=== PATIENT | male | born 1945 | race Caucasian/White ===

== ENCOUNTER 2016-07-14 15:45 | Inpatient (IN) | payer MEDICARE, BC ==
[~2016-07-14] VITALS: Ht 177.8 cm; Wt 95.0 kg
[~2016-07-14 15:45] MED LIST: APIX5TAB PO; ASPI81 PO; FURO1TAB93 PO; LEVA500T PO; METO100T PO; PARO10TA PO; POTA20IN3 PO; RAMI10CA PO; ROSU20 PO; SPIRCAP INH
[2016-07-14 15:49] VITALS: BP 139/84; PULSE 62; RESP 15; TEMP 98.3; O2SAT 94
[2016-07-14] MEDS ORDERED: SODIUM CHLORIDE 0.9% FLUSH 5 ML FLUSH IVF PRN (17:15)
[2016-07-14] MEDS ORDERED: ROSU20 PO (17:27)
[2016-07-14] MEDS ORDERED: ALBUAER3 INH (17:27)
[2016-07-14] MEDS ORDERED: GLIP5TAB8 PO (17:27)
[2016-07-14] MEDS ORDERED: TIOT1AER INH (17:27)
[2016-07-14] MEDS ORDERED: XYZA5TAB2 PO (17:32)
[2016-07-14] MEDS ORDERED: SACU1TAB4 PO (17:32)
[2016-07-14] MEDS ORDERED: METO100T PO (17:32)
[2016-07-14] MEDS ORDERED: PARO1TAB71 PO (17:34)
[2016-07-14] MEDS ORDERED: POTA1TAB4 PO (17:34)
[2016-07-14] MEDS ORDERED: FURO1TAB60 PO (17:35)
[2016-07-14] MEDS ORDERED: ASPI81TA81 PO (17:35)
[2016-07-14] MEDS ORDERED: APIX5TAB PO (17:35)
--- NOTE | 2016-07-14 17:50 | RADRPT ---
EXAM DATE/TIME: 07/14/2016 17:35 [facility] COMPARISON: CHEST SINGLE AP, December 08, 2014, 13:56. INDICATIONS : Chest pain. MEDICAL HISTORY : Chronic obstructive pulmonary disease. Hypertension SURGICAL HISTORY : None. ENCOUNTER: Initial ACUITY: 1 month PAIN SCORE: 3/10 LOCATION: Bilateral chest FINDINGS: PA and lateral views of the chest demonstrate the lungs to be symmetrically aerated without evidence of mass, infiltrate or effusion. A right cardiac fat pad is again noted. Atherosclerotic changes are present in the aorta. The cardiomediastinal contours are unremarkable. Osseous structures are intac t. CONCLUSION: No acute disease. Tom Rosas MD on July 14, 2016 at 17:48 Board Certified Radiologist. This report was verified electronically.
[2016-07-14 18:10] VITALS: BP_SYST 123; BP_SYST 138; BP_DIAS 63; BP_DIAS 80; RESP 18; O2SAT 96
[2016-07-14] MEDS ORDERED: RESP: ALBUTEROL 2.5 MG/IPRATROPIUM 0.5 MG NEB (SCH) NEB ONE (18:45)
[2016-07-14 18:53] LABS: AUTOMATED NEUTROPHIL # 2.5 TH/MM3 (1.8-7.7); BASOPHIL # 0.1 TH/MM3 (0-0.2); EOSINOPHIL # 0.5 TH/MM3 (0-0.4); EOSINOPHIL % 10.2 % (0.0-4.0); HEMATOCRIT 47.1 % (39.0-51.0); HEMO FLAGS DIFF FINAL; LYMPH % 29.1 % (9.0-44.0); LYMPHOCYTE # 1.5 TH/MM3 (1.0-4.8); MEAN CELL VOLUME 92.9 FL (80.0-100.0); MEAN CORPUSCULAR HEMOGLOBIN 31.7 PG (27.0-34.0); MEAN CORPUSCULAR HGB CONC 34.1 % (32.0-36.0); MONO % 13.7 % (0.0-8.0); PLATELET COUNT 245 TH/MM3 (150-450); RED BLOOD COUNT 5.07 MIL/MM3 (4.50-5.90); RED CELL DISTRIBUTION WIDTH 13.9 % (11.6-17.2); WHITE BLOOD COUNT 5.3 TH/MM3 (4.0-11.0)
[2016-07-14 19:05] LABS: APTT (PATIENT) 28.1 SEC (24.3-30.1); INTERNATIONAL NORMALIZED RATIO 1.1 RATIO; PROTHROMBIN TIME - PATIENT 12.7 SEC (9.8-11.6)
[2016-07-14 19:08] LABS: ANION GAP 7 MEQ/L (5-15); AST (GOT) 28 U/L (15-37); BICARBONATE 32.2 MEQ/L (21.0-32.0); BLOOD UREA NITROGEN 24 MG/DL (7-18); CHLORIDE 100 MEQ/L (98-107); GLOMERULAR FILTRATION RATE 56 ML/MIN (>89); MAGNESIUM 2.4 MG/DL (1.5-2.5); POTASSIUM 4.1 MEQ/L (3.5-5.1); SODIUM (NA) 139 MEQ/L (136-145)
[2016-07-14 19:14] LABS: ALKALINE PHOSPHATASE 102 U/L (45-117); ALT (GPT) 26 U/L (12-78); CREATINE KINASE 117 U/L (39-308); TOTAL BILIRUBIN ADULT 0.7 MG/DL (0.2-1.0)
[2016-07-14 19:26] LABS: CKMB 1.5 NG/ML (0.5-3.6)
--- NOTE | 2016-07-14 19:38 | PD ---
HPI Chief Complaint: Respiratory Symptoms Time Seen by Provider: 19:25 Travel History International Travel<30 days: No Contact w/Intl Traveler<30days: No Traveled to known affect area: No History of Present Illness HPI Patient 70-year-old male sent to the emergency department with Dr. Harrell's office for evaluation of shortness of breath. Patient states shortness of breath on and off for a month, he states he is needed some breathing treatments and went to Dr. Harrell's recently requesting additional breathing treatment but was told he didn't need any and he should come to the emergency department for evaluation of shortness of breath. According the patient there was some concern that there might be a possibility for cardiogenic shortness of breath. Patient denies history of CHF, does have a history of atrial fibrillation. PFSH Past Medical History Hx Anticoagulant Therapy: Yes Atrial Fibrillation: Yes Heart Rhythm Problems: Yes (AFIB) Cancer: No Cardiovascular Problems: Yes (AR X4) High Cholesterol: Yes Congestive Heart Failure: Yes Endocrine: No Genitourinary: No Heparin Induced Thrombocytopen: Yes Hypertension: Yes Immune Disorder: No Implanted Vascular Access Dvce: No Musculoskeletal: No Neurologic: No Psychiatric: No Reproductive: No Respiratory: No Myocardial Infarction: Yes (x 4 (recent 10/01/10)) PNEUMOCCOCAL Vaccine (Year): 2 Past Surgical History Cardiac Surgery: Yes (MULTIPLE STENTS 10/01/10) Other Surgery: No Social History Alcohol Use: Yes (1-2 drinks daily) Tobacco Use: No (quit 1992) Substance Use: No Allergies-Medications (Allergen,Severity, Reaction): Coded Allergies: Heparin (Verified Allergy, Severe, THROMBOCYTOPENIA, 07/14/16) Hctz (Verified Allergy, Mild, 07/14/16) RASH Reported Meds & Prescriptions Reported Meds & Active Scripts Active Reported Eliquis (Apixaban) 5 Mg Tab 5 Mg PO BID Aspir-81 (Aspirin) 81 Mg Tabdr 81 Mg PO HS Lasix (Furosemide) 40 Mg Tab 40 Mg PO DAILY Paroxetine (Paroxetine HCl) 10 Mg Tab 10 Mg PO DAILY K-Tab (Potassium Chloride) 20 Meq Tab 20 Meq PO DAILY Metoprolol Tartrate 100 Mg Tab 100 Mg PO BID Entresto (Sacubitril-Valsartan) 97-103 Mg Tab 1 Tab PO BID Xyzal (Levocetirizine) 5 Mg Tab 5 Mg PO HS Proair Hfa 8.5 GM Inh (Albuterol Sulfate) 90 Mcg/Act Aer 2 Puff INH QID PRN 108 mcg/actuation Stiolto Respimat Inh (Tiotropium-Olodaterol Inh) 2.5-2.5 Mcg/Act Aero 2 Puff INH DAILY Crestor (Rosuvastatin Calcium) 20 Mg Tab 20 Mg PO HS Glipizide 5 Mg Tab 5 Mg PO DAILY Take 30 minutes before a meal Review of Systems Except as stated in HPI: all other systems reviewed are Neg Physical Exam Narrative GENERAL: [Well-developed well-nourished no apparent distress SKIN: Warm and dry. HEAD: Atraumatic. Normocephalic. EYES: Pupils equal and round. No scleral icterus. No injection or drainage. ENT: No nasal bleeding or discharge. Mucous membranes pink and moist. NECK: Trachea midline. No JVD. CARDIOVASCULAR: Regular rate and rhythm. No murmur appreciated. RESPIRATORY: No accessory muscle use. Coarse breath sounds wheezes and rhonchi consistent with bronchitis, good air entry.. Breath sounds equal bilaterally. No increased work of breathing. GASTROINTESTINAL: Abdomen soft, non-tender, nondistended. Hepatic and splenic margins not palpable. MUSCULOSKELETAL: No obvious deformities. No clubbing. No cyanosis. No edema. NEUROLOGICAL: Awake and alert. No obvious cranial nerve deficits. Motor grossly within normal limits. Normal speech. PSYCHIATRIC: Appropriate mood and affect; insight and judgment normal. Data Data Last Documented VS Vital Signs Date Time Temp Pulse Resp B/P Pulse Ox O2 Delivery O2 Flow Rate FiO2 07/14/16 20:37 79 18 120/71 96 Room Air 07/14/16 15:49 98.3 Orders Electrocardiogram (07/14/16 17:06) B-Type Natriuretic Peptide (07/14/16 17:06) Ckmb (Isoenzyme) Profile (07/14/16 17:06) Complete Blood Count With Diff (07/14/16 17:06) Comprehensive Metabolic Panel (07/14/16 17:06) Magnesium (Mg) (07/14/16 17:06) Prothrombin Time / Inr (Pt) (07/14/16 17:06) Act Partial Throm Time (Ptt) (07/14/16 17:06) Troponin I (07/14/16 17:06) Ecg Monitoring (07/14/16 17:06) Bilateral Bp Monitoring (07/14/16 17:06) Iv Access Insert/Monitor (07/14/16 17:06) Oximetry (07/14/16 17:06) Oxygen Administration (07/14/16 17:06) Sodium Chloride 0.9% Flush (Ns Flush) (07/14/16 17:15) Chest, Pa & Lat (07/14/16 17:06) Albuterol-Ipratropium Neb (Duoneb Neb) (07/14/16 18:45) CKMB (07/14/16 18:20) CKMB% (07/14/16 18:20) Ct Brain W/O Iv Contrast(Rout) (07/14/16 20:21) Furosemide Inj (Lasix Inj) (07/14/16 20:45) Admit Order (Ed Use Only) (07/14/16 21:47) Labs Laboratory Tests Test 07/14/16 18:20 White Blood Count 5.3 TH/MM3 Red Blood Count 5.07 MIL/MM3 Hemoglobin 16.0 GM/DL Hematocrit 47.1 % Mean Corpuscular Volume 92.9 FL Mean Corpuscular Hemoglobin 31.7 PG Mean Corpuscular Hemoglobin 34.1 % Concent Red Cell Distribution Width 13.9 % Platelet Count 245 TH/MM3 Mean Platelet Volume 8.1 FL Neutrophils (%) (Auto) 46.0 % Lymphocytes (%) (Auto) 29.1 % Monocytes (%) (Auto) 13.7 % Eosinophils (%) (Auto) 10.2 % Basophils (%) (Auto) 1.0 % Neutrophils # (Auto) 2.5 TH/MM3 Lymphocytes # (Auto) 1.5 TH/MM3 Monocytes # (Auto) 0.7 TH/MM3 Eosinophils # (Auto) 0.5 TH/MM3 Basophils # (Auto) 0.1 TH/MM3 CBC Comment DIFF FINAL Differential Comment Prothrombin Time 12.7 SEC Prothromb Time International 1.1 RATIO Ratio Activated Partial 28.1 SEC Thromboplast Time Sodium Level 139 MEQ/L Potassium Level 4.1 MEQ/L Chloride Level 100 MEQ/L Carbon Dioxide Level 32.2 MEQ/L Anion Gap 7 MEQ/L Blood Urea Nitrogen 24 MG/DL Creatinine 1.27 MG/DL Estimat Glomerular Filtration 56 ML/MIN Rate Random Glucose 68 MG/DL Calcium Level 8.6 MG/DL Magnesium Level 2.4 MG/DL Total Bilirubin 0.7 MG/DL Aspartate Amino Transf 28 U/L (AST/SGOT) Alanine Aminotransferase 26 U/L (ALT/SGPT) Alkaline Phosphatase 102 U/L Total Creatine Kinase 117 U/L Creatine Kinase MB 1.5 NG/ML Troponin I 0.02 NG/ML B-Type Natriuretic Peptide 255 PG/ML Total Protein 8.0 GM/DL Albumin 3.7 GM/DL MDM Medical Decision Making Medical Screen Exam Complete: Yes Emergency Medical Condition: Yes Interpretation(s) EKG shows atrial ablation normal axis normal R-wave progression. No concerning ST-T changes. There are Q waves in II, III, and F aVF consistent with a prior inferior infarct. This is an abnormal EKG. Differential Diagnosis Bronchitis, pneumonia, CHF unlikely, shortness of breath. Narrative Course Patient was roomed emergency department, given duo neb. EKG is reassuring, chest x-ray reassuring. Lung sounds are highly consistent with bronchitis. Basic labs are still pending at this time. Patient was discussed with Dr. Graff at changes shift to follow-up labs and disposition properly. Zuhair Borrero MD Jul 14, 2016 19:38 Zuhair Borrero MD Jul 14, 2016 19:38
--- NOTE | 2016-07-14 20:23 | PD ---
Data Data Last Documented VS Vital Signs Date Time Temp Pulse Resp B/P Pulse Ox O2 Delivery O2 Flow Rate FiO2 07/14/16 20:37 79 18 120/71 96 Room Air 07/14/16 15:49 98.3 Orders Electrocardiogram (07/14/16 17:06) B-Type Natriuretic Peptide (07/14/16 17:06) Ckmb (Isoenzyme) Profile (07/14/16 17:06) Complete Blood Count With Diff (07/14/16 17:06) Comprehensive Metabolic Panel (07/14/16 17:06) Magnesium (Mg) (07/14/16 17:06) Prothrombin Time / Inr (Pt) (07/14/16 17:06) Act Partial Throm Time (Ptt) (07/14/16 17:06) Troponin I (07/14/16 17:06) Ecg Monitoring (07/14/16 17:06) Bilateral Bp Monitoring (07/14/16 17:06) Iv Access Insert/Monitor (07/14/16 17:06) Oximetry (07/14/16 17:06) Oxygen Administration (07/14/16 17:06) Sodium Chloride 0.9% Flush (Ns Flush) (07/14/16 17:15) Chest, Pa & Lat (07/14/16 17:06) Albuterol-Ipratropium Neb (Duoneb Neb) (07/14/16 18:45) CKMB (07/14/16 18:20) CKMB% (07/14/16 18:20) Ct Brain W/O Iv Contrast(Rout) (07/14/16 20:21) Furosemide Inj (Lasix Inj) (07/14/16 20:45) Admit Order (Ed Use Only) (07/14/16 21:47) Labs Laboratory Tests Test 07/14/16 18:20 White Blood Count 5.3 TH/MM3 Red Blood Count 5.07 MIL/MM3 Hemoglobin 16.0 GM/DL Hematocrit 47.1 % Mean Corpuscular Volume 92.9 FL Mean Corpuscular Hemoglobin 31.7 PG Mean Corpuscular Hemoglobin 34.1 % Concent Red Cell Distribution Width 13.9 % Platelet Count 245 TH/MM3 Mean Platelet Volume 8.1 FL Neutrophils (%) (Auto) 46.0 % Lymphocytes (%) (Auto) 29.1 % Monocytes (%) (Auto) 13.7 % Eosinophils (%) (Auto) 10.2 % Basophils (%) (Auto) 1.0 % Neutrophils # (Auto) 2.5 TH/MM3 Lymphocytes # (Auto) 1.5 TH/MM3 Monocytes # (Auto) 0.7 TH/MM3 Eosinophils # (Auto) 0.5 TH/MM3 Basophils # (Auto) 0.1 TH/MM3 CBC Comment DIFF FINAL Differential Comment Prothrombin Time 12.7 SEC Prothromb Time International 1.1 RATIO Ratio Activated Partial 28.1 SEC Thromboplast Time Sodium Level 139 MEQ/L Potassium Level 4.1 MEQ/L Chloride Level 100 MEQ/L Carbon Dioxide Level 32.2 MEQ/L Anion Gap 7 MEQ/L Blood Urea Nitrogen 24 MG/DL Creatinine 1.27 MG/DL Estimat Glomerular Filtration 56 ML/MIN Rate Random Glucose 68 MG/DL Calcium Level 8.6 MG/DL Magnesium Level 2.4 MG/DL Total Bilirubin 0.7 MG/DL Aspartate Amino Transf 28 U/L (AST/SGOT) Alanine Aminotransferase 26 U/L (ALT/SGPT) Alkaline Phosphatase 102 U/L Total Creatine Kinase 117 U/L Creatine Kinase MB 1.5 NG/ML Troponin I 0.02 NG/ML B-Type Natriuretic Peptide 255 PG/ML Total Protein 8.0 GM/DL Albumin 3.7 GM/DL [facility] Medical Record Reviewed: Yes Supervised Visit with LEONCIO: No Narrative Course CBC & BMP Diagram 07/14/16 18:20 BNP 255 LFTs normal Tn 0.02 EKG: afib, rate 70, Q waves II III and aVF INR 1.1 PTT 28.1 Chest x-ray reveals no dense consolidation or pulmonary edema Please refer to the outgoing provider's note. On my exam the history is less concerning for a CHF exacerbation although the patient does have difficulty breathing with COPD and CHF although he is not hypoxic or dyspneic in the ER my time of evaluation. His endorses concern for expressive aphasia. He does seem to a struggle with expressive aphasia. Duration of symptoms is about a day and a half or so. Dr. Harrell was also concerned about this. Head CT is negative. The patient will be admitted for further evaluation. Discussed with Dr. Osorio Diagnosis Primary Impression: Expressive aphasia Additional Impression: CHF (congestive heart failure) Qualified Code: I50.9 - Congestive heart failure, unspecified congestive heart failure chronicity, unspecified congestive heart failure type Admitting Information Admitting Physician Requests: Observation Ehsan Graff MD Jul 14, 2016 20:23
[2016-07-14 20:37] VITALS: BP 120/71; PULSE 79; RESP 18; O2SAT 96
[2016-07-14] MEDS ORDERED: FUROSEMIDE 20 MG/2 ML VIAL IV PUSH ONE (20:45)
--- NOTE | 2016-07-14 21:33 | RADRPT ---
EXAM DATE/TIME: 07/14/2016 20:44 [facility] COMPARISON: No previous studies available for comparison. INDICATIONS : Lethargic, dysphasia, and weakness; possible stroke. RADIATION DOSE: 50.00 CTDIvol (mGy) MEDICAL HISTORY : Myocardial infarction. Hypertension. cardiac stents, atrial fibrillation SURGICAL HISTORY : None. ENCOUNTER: Initial ACUITY: 1 day PAIN SCALE: 5/10 LOCATION: cranial TECHNIQUE: Multiple contiguous axial images were obtained of the head. Using automated exposure control and adj ustment of the mA and/or kV according to patient size, radiation dose was kept as low as reasonably a chievable to obtain optimal diagnostic quality images. FINDINGS: CEREBRUM: The ventricles are normal for age. No evidence of midline shift, mass lesion, hemorrhage or acute in farction. No extra-axial fluid collections are seen. POSTERIOR FOSSA: The cerebellum and brainstem are intact. The 4th ventricle is midline. The cerebellopontine angle i s unremarkable. EXTRACRANIAL: The visualized portion of the orbits is intact. SKULL: The calvaria is intact. No evidence of skull fracture. CONCLUSION: No acute disease. Shankar Schmitz MD on July 14, 2016 at 21:31 Board Certified Radiologist. This report was verified electronically.
[2016-07-14] MEDS ORDERED: DEXTROSE 50% IN WATER 50 ML VIAL(D50) IV PUSH PRN (23:00)
[2016-07-14] MEDS ORDERED: GLUCAGON 1 MG/ML VIAL OTHER PRN (23:00)
[2016-07-15] VITALS (10 sets, daily range): BP systolic 119–164; BP diastolic 64–96; PULSE 64–87; RESP 17–21; TEMP 97.5–97.8; O2SAT 93–98
--- NOTE | 2016-07-15 00:06 | RADRPT ---
EXAM DATE/TIME: 07/14/2016 23:00 [facility] COMPARISON: No previous studies available for comparison. INDICATIONS : Transient ishcemic attack. MEDICAL HISTORY : Myocardial infarction. Congestive heart failure. Hypercholesterolemia. A-Fib. SURGICAL HISTORY : Cardiac stents. ENCOUNTER: Initial ACUITY: 1 day PAIN SCORE: 0/10 LOCATION: Bilateral neck PEAK SYSTOLIC VELOCITIES (cm/sec): ICA/CCA RATIO: Right: 1.5 Left: 1.0 ICA: Right: 89 Left: 89 CCA: Right: 58 Left: 89 ECA: Right: 93 Left: 119 VERTEBRAL: Right: 0.0 absent Left: 37 antegrade Elevated flow velocities and ICA/CCA ratios have been found to correlate with increased degrees of vessel stenosis, calculated as percentage of diameter relative to a normal segment of distal ICA/CCA FINDINGS: Ultrasound of the carotid arteries was performed bilaterally using real-time Doppler and color Dopple r imaging. Examination of the right carotid artery demonstrates mild fibrous plaque within the bifurcation. No w aveform abnormalities are identified and no spectral broadening is seen. Examination of the left dupree tid artery demonstrates mild fibrous plaque within the bulb. No waveform abnormalities are identified and no spectral broadening is seen. There is antegrade flow in the left vertebral artery. The right vertebral artery is not identified CONCLUSION: No evidence of hemodynamically significant lesion. Alf Gutierrez MD on July 15, 2016 at 0:03 Board Certified Radiologist. This report was verified electronically.
[2016-07-15 06:32] LABS: POTASSIUM 3.6 MEQ/L (3.5-5.1)
[2016-07-15 06:35] LABS: HDL CHOLESTEROL 41.4 MG/DL (40.0-60.0)
[2016-07-15] MEDS: INSULIN ASPART SUPPLEMENTAL SCALE SQ SCH ×4 (07:00→21:00)
--- NOTE | 2016-07-15 08:48 | HHI.HP ---
[facility] Service [facility] Primary Care Physician Yusef Harrell DO Admission Diagnosis CHF, Expressive Aphasia Diagnoses: Chief Complaint: SOB, trouble with speech. (Annel Candelario) Travel History International Travel<30 Days: No Contact w/Intl Traveler <30 Da: No Traveled to Known Affected Are: No (Annel Candelario) History of Present Illness This is a 70-year-old male with significant past medical history of coronary artery disease, prior myocardial infarction, previous stents, chronic A. fib, CHF, HIT, hypertension, DM II. Patient presented to the emergency room for evaluation of shortness of breath. He was sent from his primary care office. Patient is a poor historian, is providing the information. Patient had gone in for his regular checkup, he was noted short of breath and was told to bring him here for further evaluation. He was given DuoNeb treatments at the office. According to the , she has noted that patient has been dizzy, kind of stumbling around. Patient states that he has some shortness of breath that is more with activity, denies any chest pain, no palpitations, no orthopnea , no leg swelling. Patient is compliant with medications, he is on diuretics. During evaluation in the emergency room, also endorses that patient has some trouble with expressive aphasia. This has been an ongoing problem but his been more pronounced in the last couple days. She think that he has the beginning of Alzheimer's disease, has noted increased problems with his memory. He has trouble with word finding. Patient still drives and is relatively active and takes care of his house. During examination, he know he is in the hospital, is oriented to city, knows 's name. When asked what year and month he's having trouble recalling. He has no focal deficits. He's having some difficulty following more complex commands. Denies any paresthesias. Laboratory workup was completed in the emergency room. CBC was essentially unremarkable. BNP was 255. BMP was unremarkable. Head CT did not reveal any significant findings. Brain MRI also with no acute findings. Chest x-ray did not show any acute findings. Carotid Ultrasound doesn't show any significant stenosis. Patient was given Lasix 20 mg IV 1. Denies any shortness of breath at this time, no chest pain. Patient is admitted for further evaluation and treatment. (Annel Candelario) Review of Systems ROS Limitations: Poor Historian Neurologic: COMPLAINS OF: Speech Problems (Annel Candelario) Past Family Social History Past Medical History Recent memory problems Atrial fibrillation Myocardial infarction x 4 Coronary artery disease and stents 5 Last cardiac catheter was in 2010 Previous tobacco abuse Hypertension Hyperlipidemia CHF HIT Echo 2010, EF 35-40% DM II Past Surgical History Cardiac catheterization Multiple stents in the past Reported Medications Reported Meds & Active Scripts Active Reported Eliquis (Apixaban) 5 Mg Tab 5 Mg PO BID Aspir-81 (Aspirin) 81 Mg Tabdr 81 Mg PO HS Lasix (Furosemide) 40 Mg Tab 40 Mg PO DAILY Paroxetine (Paroxetine HCl) 10 Mg Tab 10 Mg PO DAILY K-Tab (Potassium Chloride) 20 Meq Tab 20 Meq PO DAILY Metoprolol Tartrate 100 Mg Tab 100 Mg PO BID Entresto (Sacubitril-Valsartan) 97-103 Mg Tab 1 Tab PO BID Xyzal (Levocetirizine) 5 Mg Tab 5 Mg PO HS Proair Hfa 8.5 GM Inh (Albuterol Sulfate) 90 Mcg/Act Aer 2 Puff INH QID PRN 108 mcg/actuation Stiolto Respimat Inh (Tiotropium-Olodaterol Inh) 2.5-2.5 Mcg/Act Aero 2 Puff INH DAILY Crestor (Rosuvastatin Calcium) 20 Mg Tab 20 Mg PO HS Glipizide 5 Mg Tab 5 Mg PO DAILY Take 30 minutes before a meal (Annel Candelario) Allergies: Coded Allergies: Heparin (Verified Allergy, Severe, THROMBOCYTOPENIA, 07/14/16) Hctz (Verified Allergy, Mild, 07/14/16) RASH Active Ordered Medications Inpatient Medications Albuterol/ Ipratropium (Duoneb Neb) 3 ampule ONCE ONCE NEB Last administered on 07/14/16t 18:45; Start 07/14/16 at 18:45; Stop 07/14/16 at 18:46; Status DC Apixaban (Eliquis) 5 mg BID PO ; Start 07/15/16 at 09:00 Aspirin (Ecotrin Ec) 81 mg HS PO ; Start 07/15/16 at 21:00 Atorvastatin Calcium (Lipitor) 40 mg HS PO CM; Start 07/15/16 at 21:00 Dextrose (D50w (Vial) Inj) 25 ml UNSCH PRN IV PUSH HYPOGLYCEMIA-SEE COMMENTS; Start 07/14/16 at 23:00 Furosemide (Lasix Inj) 20 mg BID@,18 IV PUSH ; Start 07/15/16 at 09:00 Glipizide (Glucotrol) 5 mg DAILY@08 PO ; Start 07/15/16 at 08:00 Glucagon (Glucagon Inj) 1 mg UNSCH PRN OTHER HYPOGLYCEMIA-SEE COMMENTS; Start 07/14/16 at 23:00 Insulin Aspart (NovoLOG SUPPLEMENTAL SCALE) 1 ACHS SLIDING SCALE SQ ; Start at 07:00 IV Flush (NS Flush) 2 ml UNSCH PRN IVF FLUSH AFTER USING IV ACCESS Last administered on 07/14/16t 20:54; Start 07/14/16 at 17:15 Metoprolol Tartrate (Lopressor) 100 mg BID PO ; Start 07/15/16 at 09:00 Paroxetine HCl (Paxil) 10 mg DAILY PO ; Start 07/15/16 at 09:00 Patient Own Medication PT OWN MED: STIO... DAILY PO ; Start 07/15/16 at 09:00 Sacubitril/ Valsartan (Entresto 97-103 Mg) 1 tab BID PO ; Start 07/15/16 at 09: 00 Family History Reviewed, noncontributory Social History Patient is , lives at home with . Drinks 1-2 drinks daily. Quit smoking in 1992. No substance abuse. (Annel Candelario) Physical Exam Vital Signs Vital Signs Date Time Temp Pulse Resp B/P Pulse Ox O2 Delivery O2 Flow Rate FiO2 07/15/16 07:54 97.6 75 18 159/96 93 07/15/16 06:00 76 07/15/16 05:23 97.8 87 18 151/87 97 07/15/16 02:20 72 18 119/64 95 Room Air 07/14/16 20:37 79 18 120/71 96 Room Air 07/14/16 18:10 95 Room Air 07/14/16 18:10 123/63 138/80 07/14/16 18:10 18 96 Room Air 07/14/16 15:49 98.3 62 15 139/84 94 Physical Exam GENERAL: This is a well-nourished, well-developed patient, in no apparent distress. SKIN: No rashes, ecchymoses or lesions. Cool and dry. HEAD: Atraumatic. Normocephalic. No temporal or scalp tenderness. EYES: Pupils equal round and reactive. Extraocular motions intact. No scleral icterus. No injection or drainage. ENT: Nose without bleeding, purulent drainage or septal hematoma. Throat without erythema, tonsillar hypertrophy or exudate. Uvula midline. Airway patent. NECK: Trachea midline. No JVD or lymphadenopathy. Supple, nontender, no meningeal signs. CARDIOVASCULAR: S1 and S2, irregularly irregular. No murmurs rubs or gallops. RESPIRATORY: Clear to auscultation. Breath sounds equal bilaterally. No wheezes , rales, or rhonchi. GASTROINTESTINAL: Abdomen soft, non-tender, nondistended. No hepato-splenomegaly , or palpable masses. No guarding. MUSCULOSKELETAL: Extremities without clubbing, cyanosis, or edema. No joint tenderness, effusion, or edema noted. No calf tenderness. Negative Homans sign bilaterally. NEUROLOGICAL: Awake, alert oriented 2. Has difficulty with word finding. No focal deficit. Can follow simple commands. Laboratory Laboratory Tests Test 07/14/16 07/15/16 18:20 05:22 White Blood Count 5.3 Red Blood Count 5.07 Hemoglobin 16.0 Hematocrit 47.1 Mean Corpuscular Volume 92.9 Mean Corpuscular Hemoglobin 31.7 Mean Corpuscular Hemoglobin 34.1 Concent Red Cell Distribution Width 13.9 Platelet Count 245 Mean Platelet Volume 8.1 Neutrophils (%) (Auto) 46.0 Lymphocytes (%) (Auto) 29.1 Monocytes (%) (Auto) 13.7 Eosinophils (%) (Auto) 10.2 Basophils (%) (Auto) 1.0 Neutrophils # (Auto) 2.5 Lymphocytes # (Auto) 1.5 Monocytes # (Auto) 0.7 Eosinophils # (Auto) 0.5 Basophils # (Auto) 0.1 CBC Comment DIFF FINAL Differential Comment Prothrombin Time 12.7 Prothromb Time International 1.1 Ratio Activated Partial 28.1 Thromboplast Time Sodium Level 139 142 Potassium Level 4.1 3.6 Chloride Level 100 102 Carbon Dioxide Level 32.2 31.0 Anion Gap 7 9 Blood Urea Nitrogen 24 24 Creatinine 1.27 1.16 Estimat Glomerular Filtration 56 62 Rate Random Glucose 68 107 Calcium Level 8.6 8.2 Magnesium Level 2.4 Total Bilirubin 0.7 Aspartate Amino Transf 28 (AST/SGOT) Alanine Aminotransferase 26 (ALT/SGPT) Alkaline Phosphatase 102 Total Creatine Kinase 117 Creatine Kinase MB 1.5 Troponin I 0.02 B-Type Natriuretic Peptide 255 Total Protein 8.0 Albumin 3.7 Triglycerides Level 165 Cholesterol Level 126 LDL Cholesterol 52 HDL Cholesterol 41.4 Cholesterol/HDL Ratio 3.04 (Annel Candelario) Result Diagram: 07/14/16 1820 07/15/16 0522 Imaging Last Impressions Head CT 07/14/162020 Signed Impressions: Service Date/Time: Thursday, July 14, 2016 20:44 - CONCLUSION: No acute disease. Shankar Schmitz MD Chest X-Ray 07/14/16 1706 Signed Impressions: Service Date/Time: Thursday, July 14, 2016 17:35 - CONCLUSION: No acute disease. Tom Rosas MD Carotid Artery Ultrasound 07/14/16 0000 Signed Impressions: Service Date/Time: Thursday, July 14, 2016 23:00 - CONCLUSION: No evidence of hemodynamically significant lesion. Alf Gutierrez MD (Annel Candelario) Assessment and Plan Problem List: (1) Expressive aphasia (2) CHF (congestive heart failure) (3) Atrial fibrillation (4) CAD (coronary artery disease) (5) Hypertension (6) Memory deficit (7) Hx of myocardial infarction (8) Diabetes 1.5, managed as type 2 Assessment and Plan Admit to Dr. Rice 70-year-old male with history of CAD, CHF, A. fib. Presented to emergency room from doctor's office for complaint of shortness of breath, also ongoing problems with expressive aphasia. CHF, likely systolic appears well compensated Lasix 20 mg IV twice a day Continue to monitor intake and output Continue Entresto, BB -2-D echo has been ordered Consult cardiology for evaluation Expressive aphasia, CT and brain MRI did not show any acute findings, has ongoing memory problems. Possible CVA, versus TIA, possible early dementia. -Continue neuro checks Consult neurology for evaluation 2-D echo, carotid ultrasound have been ordered Imaging studies have been reviewed We'll check TSH, B12 and RPR -Continue with aspirin -PT/OT/ST ordered. -Lipid profile A. fib, stable Continuous cardiac telemetry Continue beta blockers Continue with Eliquis 5 mg by mouth twice a day -Continue statin CAD, hx CT -continue with home meds DM II -Accu-Cheks before meals and at bedtime with insulin therapy as needed Home medications reviewed, initiated as indicated Continue with Eliquis for DVT prophylaxis Plan of care has been discussed with the patient, attending and registered nurse. Further management of the patient will be dependent on the hospital course This patient was seen by myself and Dr. 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 about plan of care (Charlie Rice MD) Problem Qualifiers (1) CHF (congestive heart failure): Qualified Code: I50.9 - Congestive heart failure, unspecified congestive heart failure chronicity, unspecified congestive heart failure type (2) Atrial fibrillation: Qualified Code: I48.91 - Atrial fibrillation, unspecified type (3) CAD (coronary artery disease): Qualified Code: I25.10 - Coronary artery disease involving [place] coronary artery of [place] heart without angina pectoris (4) Hypertension: Qualified Code: I10 - Essential hypertension Annel Candelario Jul 15, 2016 08:48 Charlie Rice MD Jul 15, 2016 21:36
[2016-07-15] MEDS ORDERED: FUROSEMIDE 20 MG/2 ML VIAL IV PUSH SCH (09:00)
--- NOTE | 2016-07-15 09:25 | RADRPT ---
EXAM DATE/TIME: 07/15/2016 08:53 [facility] COMPARISON: CT BRAIN W/O CONTRAST, July 14, 2016, 20:44. INDICATIONS : Lethargy, weakness, slurred speech. MEDICAL HISTORY : Diabetes mellitus type 2. SURGICAL HISTORY : Inguinal hernia repair. ENCOUNTER: Initial ACUITY: 1 day PAIN SCORE: 0/10 LOCATION: cranial TECHNIQUE: Multiplanar, multisequence MRI of the brain was performed without contrast. FINDINGS: CEREBRUM: The ventricles are normal for age. No evidence of midline shift, mass lesion, hemorrhage or acute in farction. No extraaxial fluid collections are seen. The pituitary gland and suprasellar cistern are normal in configuration. WHITE MATTER: A few scattered subcentimeter foci of flair signal abnormality are seen in the periventricular white matter of both cerebral hemispheres. POSTERIOR FOSSA: The cerebellum and brainstem are intact. The 4th ventricle is midline. The cerebellopontine angle is unremarkable. The cerebellar tonsils are normal in position. DIFFUSION IMAGING: No focal areas of restricted diffusion are seen. No evidence of acute infarction. EXTRACRANIAL: The visualized portions of the orbits and paranasal sinuses are unremarkable. CONCLUSION: 1. No acute infarct or other acute intracranial abnormality. 2. Minimal chronic white matter changes. Shankar Enrique MD on July 15, 2016 at 9:23 Board Certified Radiologist. This report was verified electronically.
[2016-07-15] MEDS: SACUBITRIL/VALSARTAN 97 MG-103 MG TAB PO SCH ×2 (11:05→23:26)
[2016-07-15] MEDS: FUROSEMIDE 20 MG/2 ML VIAL IV PUSH SCH ×2 (11:06→18:19)
[2016-07-15] MEDS: STIOLTO RESPIMAT PO SCH (11:06)
[2016-07-15] MEDS: glipiZIDE 5 MG TAB PO SCH (11:06)
[2016-07-15] MEDS: METOPROLOL TARTRATE 100 MG TAB PO SCH ×2 (11:07→22:21)
[2016-07-15] MEDS: APIXABAN 5 MG TABLET PO SCH ×2 (11:07→22:21)
[2016-07-15] MEDS: PARoxetine HCL 20 MG TAB PO SCH (11:07)
--- NOTE | 2016-07-15 15:48 | EKG ---
Date Performed: 07/14/2016 Time Performed: 18:14:08 PTAGE: 70 years EKG: ATRIAL FIBRILLATION ANTERIOR MYOCARDIAL INFARCTION INFERIOR MYOCARDIAL INFARCTION When comp ared to previous tracing, no significant change. ABNORMAL ECG PREVIOUS TRACING : 12/08/2014 14.03 DOCTOR: Alfred Torres Interpretating Date/Time 07/15/2016 15:46:46
--- NOTE | 2016-07-15 16:53 | MB ---
cc: RIDDHI ESPINOZA M.D. DATE OF CONSULTATION: 07/15/2016 REASON FOR CONSULTATION Shortness of breath, possible CVA also. HISTORY OF PRESENT ILLNESS Mr. Sanchez is a 70-year-old gentleman with a history of high blood pressure, congestive heart failure, hyperlipidemia, apparent atrial fibrillation, on anticoagulation admitted through the emergency room due to shortness of breath. The gentleman also a bit disoriented. Heart failure and a CVA suspected. I was consulted for evaluation and management. The chart was reviewed. The patient was evaluated. ALLERGIES HEPARIN AND HYDROCHLOROTHIAZIDE. SOCIAL HISTORY The patient quit smoking over 20 years ago. Drinks occasionally. FAMILY HISTORY Noncontributory to his current medical condition. MEDICATIONS AT HOME 1. Eliquis. 2. Aspirin. 3. Lasix. 4. Paroxetine. 5. Potassium. 6. Metoprolol. 7. Entresto. 8. ProAir. 9. Crestor. 10. Glipizide. REVIEW OF SYSTEMS The patient refer currently no chest pain, some shortness of breath but no vomiting, no fever. PHYSICAL EXAMINATION GENERAL: Alert, fully oriented. VITAL SIGNS: His blood pressure 140/67, pulse 68 irregular. LUNGS: Ventilated. CARDIOVASCULAR: S1, S2, irregular, no gallop. ABDOMEN: Obese. EXTREMITIES: No edema. Electrocardiogram shows atrial fibrillation, poor R-wave progression, diffuse ST changes and electrical interference. LABORATORY DATA Hemoglobin is 16, white blood cell 5.3, potassium is 3.6, creatinine is 1.16, TSH 1.1, troponin 0.52, BNP 255. ASSESSMENT AND RECOMMENDATIONS Mr. Sanchez currently stable. He has no chest pain, no shortness of breath. Blood pressure is adequate. He is on optimal medical treatment. I do not have a report of his ejection fraction. Echo not available. MRI was performed, report indicates no acute intracranial hemorrhage, minimal chronic change. At this point, my recommendation is continue with current management. The gentleman will need a 2D echo to evaluate wall motion and valvular function. He is very comfortable, there is no sign of fluid retention, BNP is only 255. I will closely monitor him during hospitalization. MD MADELEINE Schroeder/ASHLEIGH /4:07 PM /4:41 PM
[2016-07-15] MEDS: ASPIRIN EC 81 MG TABEC PO SCH (22:21)
[2016-07-15] MEDS: ATORVASTATIN 40 MG TAB PO SCH (22:21)
--- NOTE | 2016-07-15 23:05 | MB ---
cc: MITCH MEDRANO DATE OF CONSULTATION 07/15/16 REASON FOR CONSULTATION Difficulty with word finding HISTORY OF PRESENT ILLNESS Mr. Sanchez is a 70-year-old man who came to the hospital because of shortness of breath. His ws relating that he has been having difficulty with his word-finding ability with expressing words. He also relates difficulty with his memory for about a year now. No focal deficits. No headaches. NEUROLOGIC EXAMINATION Patient is alert. He is oriented x3, recalls 1/3 objects in 3 minutes. Remote memory is intact. His speech is fluent. He can name objects normally. Cranial nerves are intact. Motor exam is normal. There is no drift. IMAGING STUDIES MRI of the brain is normal. No acute change. CT of the brain is likewise normal. IMPRESSION The patient may have the early onset of a mild dementia. He had some recent memory loss on his mini mental status exam. I would recommend further evaluation as an outpatient with formal neuropsychological testing. MD JULIO Machado/ /10:45 PM /11:04 PM
[2016-07-16 00:05] VITALS: PULSE 66
[2016-07-16 04:18] VITALS: BP 142/78; PULSE 72; RESP 18; TEMP 98.8; O2SAT 98
[2016-07-16] MEDS: INSULIN ASPART SUPPLEMENTAL SCALE SQ SCH ×4 (06:31→20:53)
[2016-07-16] MEDS: glipiZIDE 5 MG TAB PO SCH (08:00)
--- NOTE | 2016-07-16 08:18 | HHI.PR ---
Subjective Remarks Rested well Conversational, smiling No chest pain Shortness of breath Appetite good (Galina Stewart) Objective Objective Results - Vital Signs Date Time Temp Pulse Resp B/P Pulse Ox O2 Delivery O2 Flow Rate FiO2 07/16/16 04:18 98.8 72 18 142/78 98 07/16/16 00:05 66 07/15/16 23:49 97.8 78 18 143/91 94 07/15/16 20:14 97.8 64 21 138/69 98 07/15/16 17:25 69 07/15/16 15:39 97.7 68 17 140/67 95 07/15/16 12:39 69 20 142/89 95 07/15/16 11:26 97.5 68 18 164/92 94 I/O 07/15/16 07/15/16 07/15/16 07/16/16 07/16/16 07/16/16 07:00 15:00 23:00 07:00 15:00 23:00 Intake Total 480 ml Output Total 400 ml Balance -400 ml 480 ml Intake Oral 480 ml Output Urine Total 400 ml # Voids 1 0 # Bowel Movements 0 (Glaina Stewart) Result Diagram: 07/14/16 1820 07/15/16 0522 ROS General: Weakness (generalized), Other (10 point ROS done, positives include generalized weakness, mild pleasant confusion, cough Other systems unremarkable ) Pulmonary: SOB (occasional) Neuro/MS: Confusion (mild, situational in place, time), Other (Galina Stewart) Physical Exam Physical Exam PHYSICAL EXAMINATION GENERAL: This is a well-developed, well-nourished male who appears to be in no acute distress. He is alert and awake, smiling conversational HEAD: Normocephalic without any lesion or mass noted. Facial features appear symmetric. OROPHARYNGEAL: Oropharynx without erythema or edema. NECK: Supple. No nuchal rigidity or lymphadenopathy. Trachea midline without deviation. CARDIAC: Regular rhythm, regular rate, S1 and S2 are heard. Murmur none; no gallops or rubs. LUNGS: Clear to auscultation bilaterally, low volumes. No wheeze, rhonchi or rale. No use of accessory muscles on inspiration or expiration. ABDOMEN: Soft, nontender, no organomegaly or masses. Bowel sounds are heard in all four quadrants. No rebound. No guarding. EXTREMITIES: No edema. Pulses equal bilateral. no cyanosis. NEUROLOGICAL: Patient mood and affect calm, continuous smiling, some expressive dysphasia SKIN:Warm and moist Objective Remarks You look different today. I think I know you. (Galina Stewart) A/P Assessment and Plan (1) Expressive aphasia (2) CHF (congestive heart failure) (3) Atrial fibrillation (4) CAD (coronary artery disease) (5) Hypertension (6) Memory deficit (7) Hx of myocardial infarction (8) Diabetes 1.5, managed as type 2 CHF, stable Lasix 20 mg IV twice a day monitor intake and output Consult cardiology for his expert opinion Recommends 2-D echo Chest x-ray shows no acute disease Expressive aphasia, CT and brain MRI did not show any acute findings, has ongoing memory problems. Possible CVA, versus TIA, possible early dementia. -Continue neuro checks, note any acute changes Consult neurology for evaluation, probable dementia Not oriented to situation, person, thinks he's in the basement in the laundry. Med management A. fib, stable cardiac telemetry Medical management Stable heart rate CAD, hx DC -continue with home meds 2-D echo DM II -Accu-Cheks before meals and at bedtime with insulin therapy as needed Home medications reviewed, initiated as indicated Eliquis for DVT prophylaxis This patient was seen by myself and Dr. Rice. (Galina Stewart) Assessment and Plan Pt seen and examined as above face to face time spent with pt labs and rad data reviewed dw rn bryon arshad about plan of care guru senior analytic consultant help explained to pt 2 d echo report reviewed. EF of 15 %. may need lifevest or AICD (Charlie Rice MD) Galina Stewart Jul 16, 2016 08:18 Charlie Rice MD Jul 16, 2016 08:44
[2016-07-16] MEDS: SACUBITRIL/VALSARTAN 97 MG-103 MG TAB PO SCH ×2 (09:00→20:52)
[2016-07-16] MEDS: STIOLTO RESPIMAT PO SCH (09:00)
[2016-07-16] MEDS: METOPROLOL TARTRATE 100 MG TAB PO SCH ×3 (09:00→20:54)
[2016-07-16] MEDS: PARoxetine HCL 20 MG TAB PO SCH (09:00)
[2016-07-16] MEDS: APIXABAN 5 MG TABLET PO SCH ×2 (09:00→20:52)
[2016-07-16] MEDS: FUROSEMIDE 20 MG/2 ML VIAL IV PUSH SCH (09:00)
[2016-07-16 10:36] VITALS: BP 136/84; PULSE 70; RESP 18; TEMP 96.3; O2SAT 95
[2016-07-16 11:43] VITALS: PULSE 69
--- NOTE | 2016-07-16 12:54 | EC ---
Study Study Date:07/15/2016 STUDY CONCLUSIONS SUMMARY - Left ventricle: The cavity size was normal. Wall thickness was normal. Systolic function was severely reduced. The estimated ejection fraction was in the range of 20% to 30%. - Aortic valve: Trace regurgitation. - Tricuspid valve: Mild regurgitation. - Pulmonary arteries: PA peak pressure: 46mm Hg (S). If LV function is below 40, please consider prescribing an ACEI or ARB or document rationale for non-use. PROCEDURE DATA STUDY STATUS: Elective. Procedure: Transthoracic echocardiography. Image quality was good. Scanning was performed from the parasternal, apical, and subcostal acoustic windows. Study completion: The patient tolerated the procedure well. Transthoracic echocardiography. M-mode, complete 2D, complete spectral Doppler, and color Doppler. Patient status: Inpatient. CARDIAC ANATOMY LEFT VENTRICLE: The cavity size was normal. Wall thickness was normal. Systolic function was severely reduced. The estimated ejection fraction was in the range of 20% to 30%. AORTIC VALVE: Trileaflet; normal thickness leaflets. Doppler: Transvalvular velocity was within the normal range. There was no stenosis. Trace regurgitation. AORTA: Aortic root: The aortic root was normal in size. MITRAL VALVE: Structurally normal valve. Doppler: Transvalvular velocity was within the normal range. There was no evidence for stenosis. Trace to mild regurgitation. LEFT ATRIUM: The atrium was at the upper limits of normal in size. RIGHT VENTRICLE: The cavity size was normal. Wall thickness was normal. Systolic pressure was within the normal range. PULMONIC VALVE: Doppler: Transvalvular velocity was within the normal range. There was no evidence for stenosis. No regurgitation. TRICUSPID VALVE: Structurally normal valve. Doppler: Transvalvular velocity was within the normal range. Mild regurgitation. PULMONARY ARTERY: The main pulmonary artery was normal-sized. Systolic pressure was within the normal range. RIGHT ATRIUM: The atrium was normal in size. PERICARDIUM: There was no pericardial effusion. SYSTEMIC VEINS: Inferior vena cava: The vessel was normal in size. BASIC MEASUREMENTS ADULT Normal Left ventricle LV internal dimension, ED, chordal level, 46.8 mm 43-52 PLAX LV internal dimension, ES, chordal level, *42.9 mm 23-38 PLAX Fractional shortening, chordal level, PLAX *8 % >29 LV posterior wall thickness, ED 8.1 mm IVS/LVPW ratio, ED 1.25 <1.3 Ventricular septum Septal thickness, ED 10.1 mm Aortic valve Leaflet separation 20 mm 15-26 Left atrium Anterior-posterior dimension 42 mm Right ventricle RV internal dimension, ED, PLAX 22.9 mm 19-38 BASIC MEASUREMENTS ADULT Normal Aortic valve Leaflet separation 20 mm 15-26 Aorta Root diameter, ED 31 mm 20-37 DOPPLER MEASUREMENTS ADULT Normal Main pulmonary artery Pressure, S *46 mm Hg =30 Mitral valve Peak E-wave velocity 68.6 cm/s Peak A-wave velocity 34.6 cm/s Peak E/A ratio 2 Tricuspid valve Regurgitant peak velocity 289 cm/s Peak RV-RA gradient, S 33 mm Hg Maximal regurgitant velocity 289 cm/s Systemic veins Estimated CVP 5 mm Hg Right ventricle RV pressure, S *46 mm Hg <30 LEGEND: Mean values are shown as u=mean value. Asterisk (*) peterson values outside specified normal range. Hayley Serrano [id number]
[2016-07-16 15:41] VITALS: BP 126/62; PULSE 74; RESP 18; O2SAT 94
[2016-07-16] MEDS: SPIRONOLACTONE 25 MG TAB PO SCH (15:45)
--- NOTE | 2016-07-16 15:50 | HHI.PR ---
Subjective Remarks Feeling ok Objective Vital Signs Date Time Temp Pulse Resp B/P Pulse Ox O2 Delivery O2 Flow Rate FiO2 07/16/16 15:41 74 18 126/62 94 07/16/16 11:43 69 07/16/16 10:36 96.3 70 18 136/84 95 07/16/16 04:18 98.8 72 18 142/78 98 07/16/16 00:05 66 07/15/16 23:49 97.8 78 18 143/91 94 07/15/16 20:14 97.8 64 21 138/69 98 07/15/16 17:25 69 I/O 07/15/16 07/15/16 07/15/16 07/16/16 07/16/16 07/16/16 07:00 15:00 23:00 07:00 15:00 23:00 Intake Total 480 ml Output Total 400 ml Balance -400 ml 480 ml Intake Oral 480 ml Output Urine Total 400 ml # Voids 1 0 # Bowel Movements 0 Result Diagram: 07/14/16 1820 07/15/16 0522 Imaging Alert, fully oriented, answer only by yes or no Lungs: ventilated Heart: S1, S2 regular Abdomen: Obese, no mass Ext: no edema Last Impressions Brain MRI 07/15/16 0000 Signed Impressions: Service Date/Time: Friday, July 15, 2016 08:53 - CONCLUSION: 1. No acute infarct or other acute intracranial abnormality. 2. Minimal chronic white matter changes. Shankar Enrique MD Head CT 07/14/162020 Signed Impressions: Service Date/Time: Thursday, July 14, 2016 20:44 - CONCLUSION: No acute disease. Shankar Schmitz MD Chest X-Ray 07/14/16 1706 Signed Impressions: Service Date/Time: Thursday, July 14, 2016 17:35 - CONCLUSION: No acute disease. Tom Rosas MD Carotid Artery Ultrasound 07/14/16 0000 Signed Impressions: Service Date/Time: Thursday, July 14, 2016 23:00 - CONCLUSION: No evidence of hemodynamically significant lesion. Alf Gutierrez MD Current Medications Medications (Trade) Dose Ordered Sig/Heber Route Start Time Stop Time Status Last Admin (NS Flush) 2 ml UNSCH PRN IVF 07/14/16 17:15 07/14/16 20:54 (Eliquis) 5 mg BID PO 07/15/16 09:00 07/16/16 09:00 (Ecotrin Ec) 81 mg HS PO 07/15/16 21:00 07/15/16 22:21 (Glucotrol) 5 mg DAILY@08 PO 07/15/16 08:00 07/16/16 08:00 (Lopressor) 100 mg BID PO 07/15/16 09:00 07/16/16 09:00 (Paxil) 10 mg DAILY PO 07/15/16 09:00 07/16/16 09:00 (Entresto 97-103 Mg) 1 tab BID PO 07/15/16 09:00 07/16/16 09:00 (Lipitor) 40 mg HS PO 07/15/16 21:00 07/15/16 22:21 Patient Own Medication PT OWN MED: STIO... DAILY PO 07/15/16 09:00 07/16/16 09:00 (D50w (Vial) Inj) 25 ml UNSCH PRN IV PUSH 07/14/16 23:00 (Glucagon Inj) 1 mg UNSCH PRN OTHER 07/14/16 23:00 (Vasotec) 10 mg DAILY PO 07/17/16 09:00 UNV (Lasix) 20 mg DAILY PO 07/17/16 09:00 UNV (Aldactone) 25 mg DAILY PO 07/16/16 15:45 UNV Assessment and Plan Problem List: (1) CHF (congestive heart failure) Status: Acute Plan: CHF III. On optimal medical management. On entresto. Lisinopril DC Aldactone added. Lasix decreased. I will request a nuclear stress study to r/o ischemia. Case discussed with patient. Not sure he understand the full scope of his condition (2) Hypertension Status: Acute Plan: SBP 136. High for patient condition Problem Qualifiers (1) CHF (congestive heart failure): Qualified Code: I50.9 - Congestive heart failure, unspecified congestive heart failure chronicity, unspecified congestive heart failure type (2) Hypertension: Qualified Code: I10 - Essential hypertension Hayley Banerjee MD Jul 16, 2016 15:50
[2016-07-16] MEDS ORDERED: FUROSEMIDE 20 MG TAB PO SCH (18:00)
[2016-07-16 19:19] VITALS: BP 140/79; PULSE 59; PULSE 78; RESP 18; TEMP 98.8; O2SAT 97
[2016-07-16] MEDS: ATORVASTATIN 40 MG TAB PO SCH (20:52)
[2016-07-16] MEDS: ASPIRIN EC 81 MG TABEC PO SCH (20:53)
[2016-07-17] VITALS (13 sets, daily range): BP systolic 110–156; BP diastolic 66–99; PULSE 66–89; RESP 14–21; TEMP 97.6–98.4; O2SAT 93–98
[2016-07-17] MEDS: INSULIN ASPART SUPPLEMENTAL SCALE SQ SCH ×4 (06:32→21:00)
[2016-07-17] MEDS ORDERED: ENALAPRIL MALEATE 2.5 MG TAB PO SCH ×2 (09:00)
--- NOTE | 2016-07-17 09:26 | HHI.PR ---
Subjective Remarks Rested well Alert and responds to verbal stimuli No chest pain Mild dyspnea with activity (Galina Stewart) Objective Objective Results - Vital Signs Date Time Temp Pulse Resp B/P Pulse Ox O2 Delivery O2 Flow Rate FiO2 07/17/16 07:30 97.8 73 18 156/99 96 07/17/16 04:28 98.4 89 18 139/86 98 07/17/16 00:00 98.4 74 21 131/78 98 07/16/16 19:19 98.8 59 18 140/79 97 07/16/16 15:41 74 18 126/62 94 07/16/16 11:43 69 07/16/16 10:36 96.3 70 18 136/84 95 (Galina Stewart) Result Diagram: 07/14/16 1820 07/15/16 0522 ROS General: Fatigue, Weakness, Other (10 point ROS done. Positive is noted shortness of breath generalized weakness. Cough. Other systems negative) Pulmonary: Cough, SOB (exertional) (Galina Stewart) Physical Exam Physical Exam PHYSICAL EXAMINATION GENERAL: This is a well-developed, well-nourished male who appears to be in no acute distress at rest. He is alert and awake, poor historian. HEAD: Normocephalic without any lesion or mass noted. Facial features appear symmetric. OROPHARYNGEAL: Oropharynx without erythema or edema. NECK: Supple. No nuchal rigidity or lymphadenopathy. Trachea midline without deviation. CARDIAC: Regular rhythm, regular rate, S1 and S2 are heard. Distant heart sounds. LUNGS: Clear to auscultation anterior lobes no wheeze, no rhonchi or rales probable at bases. No use of accessory muscles on inspiration or expiration. ABDOMEN: Soft, nontender, no organomegaly or masses. Bowel sounds are heard in all four quadrants. No rebound. No guarding. EXTREMITIES: No edema. Pulses equal bilateral, 1+4+. No cyanosis. NEUROLOGICAL: Patient mood appropriate. Not oriented to situation SKIN:Warm and moist Objective Remarks I am okay I guess (Galina Stewart) A/P Assessment and Plan (1) Expressive aphasia (2) CHF (congestive heart failure) (3) Atrial fibrillation (4) CAD (coronary artery disease) (5) Hypertension (6) Memory deficit (7) Hx of myocardial infarction (8) Diabetes 1.5, managed as type 2 9. Cardiomyopathy CHF, 2-D echo shows EF 15% Lasix 20 mg IV twice a day monitor intake and output Consult cardiology for his expert opinion, plan for stress test today Chest x-ray shows no acute disease Expressive aphasia, CT and brain MRI did not show any acute findings, has ongoing memory problems. Possible CVA, versus TIA, possible early dementia. -Continue neuro checks, note any acute changes Consult neurology for evaluation, probable dementia, poor historian Med management A. fib, stable cardiac telemetry Medical management Stable heart rate CAD, hx [place] -continue with home meds 2-D echo, EF 15% DM II -Accu-Cheks before meals and at bedtime with insulin therapy as needed Home medications reviewed, initiated as indicated Eliquis for DVT prophylaxis This patient was seen by myself and Dr. Rice. Discussed With: Family (patient), Other (Dr. Rice, seen on his behalf) ( Galina Stewart) Assessment and Plan Patient seen and examined as above Labs reviewed Stress test report seen Discussed with RN Explained to patient Plan of care discussed with [facility] Appreciate cardiology input (Charlie Rice MD) Galina Stewart Jul 17, 2016 09:26 Charlie Rice MD Jul 17, 2016 16:44
[2016-07-17] MEDS ORDERED: REGADENOSON INJ 0.4 MG/5 ML SYR ONE (09:31)
[2016-07-17 10:04] LABS: RAPID PLASMA REAGIN SCREEN NON-REACTIVE (NON-REACTVE)
--- NOTE | 2016-07-17 11:09 | RADRPT ---
EXAM DATE/TIME: 07/17/2016 09:08 [facility] COMPARISON: CHEST PA & LAT, July 14, 2016, 17:35. INDICATIONS : Shortness of breath. Congestive heart failure. DOSE: 25.9 mCi Tc99m Myoview at stress. 8.8 mCi Tc99m Myoview at rest. 0.4 mg Lexiscan STRESS SYMPTOMS: None. EJECTION FRACTION: 61% MEDICAL HISTORY : Hypercholesterolemia. Hypertension. Myocardial infarction. SURGICAL HISTORY : Coronary artery stent. ENCOUNTER: Initial ACUITY: 3 days PAIN SCALE: 0/10 LOCATION: chest TECHNIQUE: The patient underwent pharmacologic stress with infusion of prescribed dose. Continuous ECG tracing was monitored during stress. Gated SPECT imaging was performed after stress and conventional SPECT i maging was performed at rest. The examination was performed on a SPECT/CT scanner, both attenuation and non-corrected datasets were reviewed. FINDINGS: DISTRIBUTION: The maximum perfused segment at stress is in the anterior lateral wall. PERFUSION STUDY: The pattern of perfusion at stress reveals a large inferior wall perfusion defect without redistribut ion at rest. GATED STUDY: There is intact wall motion and thickening without hypokinetic or dyskinetic segments. CONCLUSION: Fixed inferior wall perfusion defect without redistribution consistent with infarct. RISK CATEGORY: Intermediate (1-3% Annual Mortality Rate) Reyes Pereira MD on July 17, 2016 at 11:05 Board Certified Radiologist. This report was verified electronically.
[2016-07-17] MEDS: glipiZIDE 5 MG TAB PO SCH (11:16)
[2016-07-17] MEDS: SPIRONOLACTONE 25 MG TAB PO SCH (11:16)
[2016-07-17] MEDS: METOPROLOL TARTRATE 100 MG TAB PO SCH ×2 (11:17→21:26)
[2016-07-17] MEDS: APIXABAN 5 MG TABLET PO SCH ×2 (11:17→21:26)
[2016-07-17] MEDS: PARoxetine HCL 20 MG TAB PO SCH (11:17)
[2016-07-17] MEDS: FUROSEMIDE 20 MG TAB PO SCH (11:17)
[2016-07-17] MEDS: SACUBITRIL/VALSARTAN 97 MG-103 MG TAB PO SCH ×2 (11:17→21:00)
[2016-07-17] MEDS: STIOLTO RESPIMAT PO SCH (11:18)
[2016-07-17] MEDS ORDERED: SOD PHOSPHATE/SOD BIPHOSPHATE (ADULT) ENEMA 133ML PR ONE (12:00)
[2016-07-17] MEDS: ASPIRIN EC 81 MG TABEC PO SCH (21:00)
[2016-07-17] MEDS: ATORVASTATIN 40 MG TAB PO SCH (21:26)
--- NOTE | 2016-07-17 22:51 | HHI.PR ---
Subjective Remarks Feeling ok Objective Vital Signs Date Time Temp Pulse Resp B/P Pulse Ox O2 Delivery O2 Flow Rate FiO2 07/17/16 18:02 69 07/17/16 17:02 73 07/17/16 16:04 70 07/17/16 15:40 97.6 68 20 119/66 93 07/17/16 15:40 66 07/17/16 12:17 97.6 75 14 115/72 95 07/17/16 11:15 83 07/17/16 07:30 97.8 73 18 156/99 96 07/17/16 04:28 98.4 89 18 139/86 98 07/17/16 00:00 98.4 74 21 131/78 98 I/O 07/16/16 07/16/16 07/16/16 07/17/16 07/17/16 07/17/16 07:00 15:00 23:00 07:00 15:00 23:00 Intake Total 120 ml Balance 120 ml Intake Oral 120 ml # Voids 1 # Bowel Movements 0 Result Diagram: 07/14/16 1820 07/15/16 0522 Imaging Alert, fully oriented, in bed Lungs: ventilated Heart: S1, S2 regular, no gallop Abdomen: soft, no mass, obese Ext: no edema Last Impressions Myocardial Perfusion Scan Nuc Med 07/17/16 0000 Signed Impressions: Service Date/Time: Sunday, July 17, 2016 09:08 - CONCLUSION: Fixed inferior wall perfusion defect without redistribution consistent with infarct. RISK CATEGORY: Intermediate (1-3%% Annual Mortality Rate) Reyes Pereira MD Brain MRI 07/15/16 0000 Signed Impressions: Service Date/Time: Friday, July 15, 2016 08:53 - CONCLUSION: 1. No acute infarct or other acute intracranial abnormality. 2. Minimal chronic white matter changes. Shankar Enrique MD Head CT 07/14/162020 Signed Impressions: Service Date/Time: Thursday, July 14, 2016 20:44 - CONCLUSION: No acute disease. Shankar Schmitz MD Chest X-Ray 07/14/16 1706 Signed Impressions: Service Date/Time: Thursday, July 14, 2016 17:35 - CONCLUSION: No acute disease. Tom Rosas MD Carotid Artery Ultrasound 07/14/16 0000 Signed Impressions: Service Date/Time: Thursday, July 14, 2016 23:00 - CONCLUSION: No evidence of hemodynamically significant lesion. Alf Gutierrez MD Current Medications Medications (Trade) Dose Ordered Sig/Heber Route Start Time Stop Time Status Last Admin (NS Flush) 2 ml UNSCH PRN IVF 07/14/16 17:15 07/14/16 20:54 (Eliquis) 5 mg BID PO 07/15/16 09:00 07/17/16 21:26 (Ecotrin Ec) 81 mg HS PO 07/15/16 21:00 07/17/16 21:00 (Glucotrol) 5 mg DAILY@08 PO 07/15/16 08:00 07/17/16 11:16 (Lopressor) 100 mg BID PO 07/15/16 09:00 07/17/16 21:26 (Paxil) 10 mg DAILY PO 07/15/16 09:00 07/17/16 11:17 (Entresto 97-103 Mg) 1 tab BID PO 07/15/16 09:00 07/17/16 11:17 (Lipitor) 40 mg HS PO 07/15/16 21:00 07/17/16 21:26 Patient Own Medication PT OWN MED: STIO... DAILY PO 07/15/16 09:00 07/16/16 09:00 (D50w (Vial) Inj) 25 ml UNSCH PRN IV PUSH 07/14/16 23:00 (Glucagon Inj) 1 mg UNSCH PRN OTHER 07/14/16 23:00 (Lasix) 20 mg DAILY PO 07/17/16 09:00 07/17/16 11:17 (Aldactone) 25 mg DAILY PO 07/16/16 15:45 07/17/16 11:16 Assessment and Plan Problem List: (1) CHF (congestive heart failure) Status: Acute Plan: Stable. There is a big difference between echo and nuclear stress study EF . Previous echo in Sept EF was 35%.case discussed with patient and I will ask Radiology to review the nuc report. For now, continue on medical management (2) Hypertension Status: Acute Plan: SBP 119 Problem Qualifiers (1) CHF (congestive heart failure): Qualified Code: I50.9 - Congestive heart failure, unspecified congestive heart failure chronicity, unspecified congestive heart failure type (2) Hypertension: Qualified Code: I10 - Essential hypertension Chriss,Hanscy MD Jul 17, 2016 22:51
[2016-07-18] VITALS (12 sets, daily range): BP systolic 120–147; BP diastolic 73–80; PULSE 63–78; RESP 18–20; TEMP 97.6–97.9; O2SAT 95–98
[2016-07-18] MEDS: INSULIN ASPART SUPPLEMENTAL SCALE SQ SCH ×2 (06:22→11:17)
[2016-07-18] MEDS ORDERED: PILL SPLITTER OTHER PRN (08:45)
[2016-07-18] MEDS: SACUBITRIL/VALSARTAN 97 MG-103 MG TAB PO SCH (08:54)
[2016-07-18] MEDS: PARoxetine HCL 20 MG TAB PO SCH (08:54)
[2016-07-18] MEDS: APIXABAN 5 MG TABLET PO SCH (08:54)
[2016-07-18] MEDS: glipiZIDE 5 MG TAB PO SCH (08:54)
[2016-07-18] MEDS: SPIRONOLACTONE 25 MG TAB PO SCH (08:55)
[2016-07-18] MEDS: FUROSEMIDE 20 MG TAB PO SCH (08:55)
[2016-07-18] MEDS: METOPROLOL TARTRATE 100 MG TAB PO SCH (08:55)
[2016-07-18] MEDS: STIOLTO RESPIMAT PO SCH (09:00)
--- NOTE | 2016-07-18 12:12 | HHI.PR ---
Subjective Remarks Feeling well Objective Vital Signs Date Time Temp Pulse Resp B/P Pulse Ox O2 Delivery O2 Flow Rate FiO2 07/18/16 11:00 97.7 75 20 139/73 98 07/18/16 11:00 63 07/18/16 10:00 76 07/18/16 09:00 78 07/18/16 08:00 71 07/18/16 07:00 73 07/18/16 07:00 97.6 67 18 120/74 95 07/18/16 06:00 69 07/18/16 04:00 74 07/18/16 03:00 97.9 77 20 147/80 96 07/18/16 02:00 74 07/18/16 00:00 75 07/17/16 23:00 98.2 68 20 110/71 97 07/17/16 22:00 77 07/17/16 20:00 69 07/17/16 19:00 98.2 79 20 128/71 98 07/17/16 19:00 79 07/17/16 18:02 69 07/17/16 17:02 73 07/17/16 16:04 70 07/17/16 15:40 97.6 68 20 119/66 93 07/17/16 15:40 66 07/17/16 12:17 97.6 75 14 115/72 95 I/O 07/17/16 07/17/16 07/17/16 07/18/16 07/18/16 07/18/16 07:00 15:00 23:00 07:00 15:00 23:00 Intake Total 120 ml 200 ml Balance 120 ml 200 ml Intake Oral 120 ml 200 ml # Voids 1 2 # Bowel Movements 0 0 Result Diagram: 07/14/16 1820 07/15/16 0522 Imaging Alert, fully oriented Lungs: Ventilated Heart: S1, S2 irregular Abdomen: soft, no mass Ext: no edema Last Impressions Myocardial Perfusion Scan Nuc Med 07/17/16 0000 Signed Impressions: Service Date/Time: Sunday, July 17, 2016 09:08 - CONCLUSION: Fixed inferior wall perfusion defect without redistribution consistent with infarct. RISK CATEGORY: Intermediate (1-3%% Annual Mortality Rate) Reyes Pereira MD Brain MRI 07/15/16 0000 Signed Impressions: Service Date/Time: Friday, July 15, 2016 08:53 - CONCLUSION: 1. No acute infarct or other acute intracranial abnormality. 2. Minimal chronic white matter changes. Shankar Enrique MD Head CT 07/14/162020 Signed Impressions: Service Date/Time: Thursday, July 14, 2016 20:44 - CONCLUSION: No acute disease. Shankar Schmitz MD Chest X-Ray 07/14/16 1706 Signed Impressions: Service Date/Time: Thursday, July 14, 2016 17:35 - CONCLUSION: No acute disease. Tom Rosas MD Carotid Artery Ultrasound 07/14/16 0000 Signed Impressions: Service Date/Time: Thursday, July 14, 2016 23:00 - CONCLUSION: No evidence of hemodynamically significant lesion. Alf Gutierrez MD Current Medications Medications (Trade) Dose Ordered Sig/Heber Route Start Time Stop Time Status Last Admin (NS Flush) 2 ml UNSCH PRN IVF 07/14/16 17:15 07/14/16 20:54 (Eliquis) 5 mg BID PO 07/15/16 09:00 07/18/16 08:54 (Ecotrin Ec) 81 mg HS PO 07/15/16 21:00 07/17/16 21:00 (Glucotrol) 5 mg DAILY@08 PO 07/15/16 08:00 07/18/16 08:54 (Lopressor) 100 mg BID PO 07/15/16 09:00 07/18/16 08:55 (Paxil) 10 mg DAILY PO 07/15/16 09:00 07/18/16 08:54 (Entresto 97-103 Mg) 1 tab BID PO 07/15/16 09:00 07/18/16 08:54 (Lipitor) 40 mg HS PO 07/15/16 21:00 07/17/16 21:26 Patient Own Medication PT OWN MED: STIO... DAILY PO 07/15/16 09:00 07/16/16 09:00 (D50w (Vial) Inj) 25 ml UNSCH PRN IV PUSH 07/14/16 23:00 (Glucagon Inj) 1 mg UNSCH PRN OTHER 07/14/16 23:00 (Lasix) 20 mg DAILY PO 07/17/16 09:00 07/18/16 08:55 (Aldactone) 25 mg DAILY PO 07/16/16 15:45 07/18/16 08:55 (Pill Splitter) 1 ea UNSCH PRN OTHER 07/18/16 08:45 Assessment and Plan Problem List: (1) CHF (congestive heart failure) Status: Acute Plan: I did call Dr Salas and he did review the nuclear report. He stated EF is over 50% despite inferoseptal wall not moving properly. Because of that, there is no need for ICD insertion. Can be DH. Follow up Dr Palomares as OP. (2) Hypertension Status: Acute Plan: BP control. Problem Qualifiers (1) CHF (congestive heart failure): Qualified Code: I50.9 - Congestive heart failure, unspecified congestive heart failure chronicity, unspecified congestive heart failure type (2) Hypertension: Qualified Code: I10 - Essential hypertension Hayley Banerjee MD Jul 18, 2016 12:12
--- NOTE | 2016-07-18 13:39 | HHI.PR ---
Subjective Remarks Patient is feeling better Offering no complaint Review of systems a 10 point system otherwise unremarkable Objective Objective Results - Vital Signs Date Time Temp Pulse Resp B/P Pulse Ox O2 Delivery O2 Flow Rate FiO2 07/18/16 13:00 74 07/18/16 12:00 75 07/18/16 11:00 97.7 75 20 139/73 98 07/18/16 11:00 63 07/18/16 10:00 76 07/18/16 09:00 78 07/18/16 08:00 71 07/18/16 07:00 73 07/18/16 07:00 97.6 67 18 120/74 95 07/18/16 06:00 69 07/18/16 04:00 74 07/18/16 03:00 97.9 77 20 147/80 96 07/18/16 02:00 74 07/18/16 00:00 75 07/17/16 23:00 98.2 68 20 110/71 97 07/17/16 22:00 77 07/17/16 20:00 69 07/17/16 19:00 98.2 79 20 128/71 98 07/17/16 19:00 79 07/17/16 18:02 69 07/17/16 17:02 73 07/17/16 16:04 70 07/17/16 15:40 97.6 68 20 119/66 93 07/17/16 15:40 66 I/O 07/17/16 07/17/16 07/17/16 07/18/16 07/18/16 07/18/16 07:00 15:00 23:00 07:00 15:00 23:00 Intake Total 120 ml 200 ml Balance 120 ml 200 ml Intake Oral 120 ml 200 ml # Voids 1 2 # Bowel Movements 0 0 Result Diagram: 07/14/16 1820 07/15/16 0522 Imaging Last Impressions Head CT 07/14/162020 Signed Impressions: Service Date/Time: Thursday, July 14, 2016 20:44 - CONCLUSION: No acute disease. Shankar Schmitz MD Chest X-Ray 07/14/16 1706 Signed Impressions: Service Date/Time: Thursday, July 14, 2016 17:35 - CONCLUSION: No acute disease. Tom Rosas MD Carotid Artery Ultrasound 07/14/16 0000 Signed Impressions: Service Date/Time: Thursday, July 14, 2016 23:00 - CONCLUSION: No evidence of hemodynamically significant lesion. Alf Gutierrez MD Physical Exam Physical Exam PHYSICAL EXAMINATION GENERAL: This is a well-developed, well-nourished male who appears to be in no acute distress at rest. He is alert and awake, poor historian. HEAD: Normocephalic without any lesion or mass noted. Facial features appear symmetric. OROPHARYNGEAL: Oropharynx without erythema or edema. NECK: Supple. No nuchal rigidity or lymphadenopathy. Trachea midline without deviation. CARDIAC: Regular rhythm, regular rate, S1 and S2 are heard. Distant heart sounds. LUNGS: Clear to auscultation anterior lobes no wheeze, no rhonchi or rales probable at bases. No use of accessory muscles on inspiration or expiration. ABDOMEN: Soft, nontender, no organomegaly or masses. Bowel sounds are heard in all four quadrants. No rebound. No guarding. EXTREMITIES: No edema. Pulses equal bilateral. No cyanosis. NEUROLOGICAL: Patient mood appropriate. Not oriented to situation SKIN:Warm and moist A/P Assessment and Plan (1) Expressive aphasia (2) CHF (congestive heart failure) (3) Atrial fibrillation (4) CAD (coronary artery disease) (5) Hypertension (6) Memory deficit (7) Hx of myocardial infarction (8) Diabetes 1.5, managed as type 2 9. Cardiomyopathy CHF, 2-D echo shows EF 50%. As Dr. Banerjee also talked to Dr. Jovanny Alex as patient was taking at home Follow cardiology's out Appreciate cardiology input status post stress test showing EF of 50% Chest x-ray shows no acute disease Expressive aphasia, CT and brain MRI did not show any acute findings, has ongoing memory problems. Possible CVA, versus TIA, possible early dementia. -note any acute changes Appreciate neurology input, probable dementia, as per neurology. Follow his output poor historian A. fib, stable cardiac telemetry Medical management Stable heart rate CAD, hx [place] -continue with home meds 2-D echo, report reviewed DM II -Accu-Cheks before meals and at bedtime with insulin therapy as needed Home medications reviewed, initiated as indicated Eliquis for DVT prophylaxis Discussed with patient and at bedside Discussed with RN Plan to discharge her home to be followed by primary care doctor neurology and cardiology as outpatient. They understood Discussed With: Family (patient), Other (Dr. Rice, seen on his behalf) Charlie Rice MD Jul 18, 2016 13:39
--- NOTE | 2016-07-18 13:44 | HHI.DS ---
Discharge Summary Admission Date Jul 16, 2016 at 16:22 Admitting Diagnosis CHF, Expressive Aphasia (1) Expressive aphasia Diagnosis: Principal (2) CHF (congestive heart failure) Diagnosis: Principal (3) Atrial fibrillation Diagnosis: Principal (4) CAD (coronary artery disease) Diagnosis: Principal (5) Hypertension Diagnosis: Principal (6) Memory deficit Diagnosis: Principal (7) Hx of myocardial infarction Diagnosis: Principal (8) Diabetes 1.5, managed as type 2 Diagnosis: Principal Brief History This is a 70-year-old male with significant past medical history of coronary artery disease, prior myocardial infarction, previous stents, chronic A. fib, CHF, HIT, hypertension, DM II. Patient presented to the emergency room for evaluation of shortness of breath. He was sent from his primary care office. Patient is a poor historian, is providing the information. Patient had gone in for his regular checkup, he was noted short of breath and was told to bring him here for further evaluation. also thinks that patient has think that he has the beginning of Alzheimer's disease, has noted increased problems with his memory. He has trouble with word finding. Patient was admitted with a CHF diagnosis. Patient was put on Lasix. Patient was seen and followed by cardiology. Echocardiogram was done which shows EF 20-30%. Stress test was done showed EF of 50%. As per cardiology EF is 50% no need for AICD. Patient did improve. As patient is overall stable and good condition plan to discharge him home to be followed by his primary care doctor and cardiology. For expressive dysphagia/memory problem patient was seen by neurologist. Workup was done. Workup included MRI of the brain and carotid ultrasound. Which were nonconclusive. And as per neurology continue follow as outpatient. This patient is overall stable and good condition plan to discharge. CBC/BMP: 07/14/16 1820 07/15/16 0522 Pt Condition on Discharge: Good Discharge Disposition: Discharge Home Discharge Instructions DIET: Follow Instructions for: Diabetic Diet Speech Therapy-Diet Recommends: Regular Activities you can perform: Weight Bearing as Espinoza Follow up Referrals: Cardiology - 2 Weeks Neurology - 3 Weeks PCP Follow-up with [facility] Continued Medications: Albuterol 8.5 GM Inh (Proair Hfa 8.5 GM Inh) 90 Mcg/Act Aer 2 PUFF INH QID 108 mcg/actuation PRN SHORTNESS OF BREATH #1 Ref 0 INHALER Apixaban (Eliquis) 5 Mg Tab 5 MG PO BID Blood Clot Prevention #60 Ref [address] (Aspir-81) 81 Mg Tabdr 81 MG PO HS Furosemide (Lasix) 40 Mg Tab 40 MG PO DAILY #30 Ref 0 TAB Glipizide (Glipizide) 5 Mg Tab 5 MG PO DAILY Take 30 minutes before a meal Blood Sugar Management #30 Ref 0 TAB Levocetirizine (Xyzal) 5 Mg Tab 5 MG PO HS Allergy Management #30 Ref 0 TAB Metoprolol Tartrate (Metoprolol Tartrate) 100 Mg Tab 100 MG PO BID #60 Ref 0 TAB Paroxetine (Paroxetine) 10 Mg Tab 10 MG PO DAILY #30 Ref 0 TAB Potassium Chloride ER (K-Tab) 20 Meq Tab 20 MEQ PO DAILY Electrolyte Replacement #30 Ref 0 TAB Rosuvastatin (Crestor) 20 Mg Tab 20 MG PO HS Cholesterol Management #30 Ref 0 TAB Sacubitril-Valsartan (Entresto) 97-103 Mg Tab 1 TAB PO BID Heart Failure #30 Ref 0 TAB Tiotropium-Olodaterol Inh (Stiolto Respimat Inh) 2.5-2.5 Mcg/Act Aero 2 PUFF INH DAILY COPD #1 Ref 0 INHALER Charlie Rice MD Jul 18, 2016 13:44
== END 2016-07-18 13:55 | disposition home or self-care (01) | DRG 65 ==
LOC: NEPE 15:45 → INTOOBSV 21:50 → NEDA 21:50 → NEPHCDU 07-15 03:00 → OBSVTOIN 07-16 16:22 → HCPC 07-17 14:48
PROVIDERS: ADMIT Specialist; ATTEND Specialist
DX: I63.9 Cerebral infarction, unspecified (principal); I50.20 Unspecified systolic (congestive) heart failure; I11.0 Hypertensive heart disease with heart failure; I42.9 Cardiomyopathy, unspecified; I48.2 Chronic atrial fibrillation; F03.90 Unspecified dementia, unspecified severity, without behavioral disturbance, psychotic disturbance, mood disturbance, and anxiety; R47.01 Aphasia; E11.9 Type 2 diabetes mellitus without complications; E78.5 Hyperlipidemia, unspecified; I25.2 Old myocardial infarction; I25.10 Atherosclerotic heart disease of native coronary artery without angina pectoris; Z79.01 Long term (current) use of anticoagulants; J40 Bronchitis, not specified as acute or chronic; Z87.891 Personal history of nicotine dependence; Z95.5 Presence of coronary angioplasty implant and graft
CPT/HCPCS: 70450; 70551; 71020; 78452; 80048; 80053; 80061; 82550; 82552; 82607; 82948; 83735; 83880; 84443; 84484; 85025; 85610; 85730; 86592; 93005; 93017; 93306; 93880; 94664; 96374; A9502; G0378; J1815; J1940; J2785

== ENCOUNTER 2016-07-26 09:02 | Emergency (ER) | payer MEDICARE, BC ==
[~2016-07-26] VITALS: Ht 177.8 cm; Wt 90.0 kg
[~2016-07-26 09:02] MED LIST changes: +ALBUAER3 INH; -ASPI81 PO; +ASPI81TA81 PO; +FURO1TAB60 PO; -FURO1TAB93 PO; +GLIP5TAB8 PO; -LEVA500T PO; -PARO10TA PO; +PARO1TAB71 PO; +POTA1TAB4 PO; -POTA20IN3 PO; -RAMI10CA PO; +SACU1TAB4 PO; -SPIRCAP INH; +TIOT1AER INH; +XYZA5TAB2 PO
[2016-07-26 09:04] VITALS: BP 141/95; PULSE 97; RESP 20; TEMP 97.5; O2SAT 99
[2016-07-26 09:15] VITALS: BP 157/86; PULSE 79; RESP 20; O2SAT 98
--- NOTE | 2016-07-26 09:42 | PD ---
HPI Chief Complaint: Respiratory Symptoms Time Seen by Provider: 09:25 Travel History International Travel<30 days: No Contact w/Intl Traveler<30days: No Traveled to known affect area: No History of Present Illness HPI This patient complains of shortness of breath. He has had some wheezing and congestion. He reports dry hacking cough but no fever or chest pain. He's felt like he has mucus that will not come up. Symptoms severity is moderate. No alleviating factors. Duration 2 weeks. He was recently hospitalized for the same symptoms. PFSH Past Medical History Hx Anticoagulant Therapy: Yes Atrial Fibrillation: Yes Heart Rhythm Problems: Yes (AFIB) Cancer: No Cardiovascular Problems: Yes High Cholesterol: Yes Congestive Heart Failure: Yes Diabetes: Yes Patient Takes Glucophage: No Endocrine: No Genitourinary: No Heparin Induced Thrombocytopen: Yes Hypertension: Yes Immune Disorder: No Implanted Vascular Access Dvce: No Musculoskeletal: No Neurologic: No Psychiatric: No Reproductive: No Respiratory: Yes Myocardial Infarction: Yes (x 4 (recent 10/01/10)) Tetanus Vaccination: < 5 Years Influenza Vaccination: Yes PNEUMOCCOCAL Vaccine (Year): 2 Past Surgical History Cardiac Surgery: Yes (MULTIPLE STENTS 10/01/10) Other Surgery: Yes (INGUINAL HERNIA REPAIR ) Social History Alcohol Use: Yes (1-2 drinks daily) Tobacco Use: No (quit 1992) Substance Use: No Allergies-Medications (Allergen,Severity, Reaction): Coded Allergies: Heparin (Verified Allergy, Severe, THROMBOCYTOPENIA, 07/26/16) Hctz (Verified Allergy, Mild, 07/26/16) RASH Reported Meds & Prescriptions Reported Meds & Active Scripts Active Reported Eliquis (Apixaban) 5 Mg Tab 5 Mg PO BID Aspir-81 (Aspirin) 81 Mg Tabdr 81 Mg PO HS Lasix (Furosemide) 40 Mg Tab 40 Mg PO DAILY Paroxetine (Paroxetine HCl) 10 Mg Tab 10 Mg PO DAILY K-Tab (Potassium Chloride) 20 Meq Tab 20 Meq PO DAILY Metoprolol Tartrate 100 Mg Tab 100 Mg PO BID Entresto (Sacubitril-Valsartan) 97-103 Mg Tab 1 Tab PO BID Xyzal (Levocetirizine) 5 Mg Tab 5 Mg PO HS Proair Hfa 8.5 GM Inh (Albuterol Sulfate) 90 Mcg/Act Aer 2 Puff INH QID PRN 108 mcg/actuation Crestor (Rosuvastatin Calcium) 20 Mg Tab 20 Mg PO HS Glipizide 5 Mg Tab 5 Mg PO DAILY Take 30 minutes before a meal Review of Systems General / Constitutional: No: Fever Eyes: No: Visual changes HENT: Positive: Rhinorrhea, Congestion, No: Headaches Cardiovascular: No: Chest Pain or Discomfort Respiratory: Positive: Cough, Shortness of Breath, Wheezing Gastrointestinal: No: Abdominal Pain Genitourinary: No: Dysuria Musculoskeletal: No: Pain Skin: No Rash Neurologic: No: Weakness Psychiatric: No: Depression Endocrine: No: Polydipsia Hematologic/Lymphatic: No: Easy Bruising Physical Exam Narrative GENERAL: Well-nourished, well-developed patient in no apparent distress. SKIN: Warm and dry. HEAD: Atraumatic. Normocephalic. EYES: Pupils equal and round. No scleral icterus. No injection or drainage. ENT: No nasal bleeding or discharge. Mucous membranes pink and moist. NECK: Trachea midline. No JVD. CARDIOVASCULAR: Regular rate and rhythm. No murmur appreciated. RESPIRATORY: No accessory muscle use. Some rhonchi and expiratory wheezing noted. No crackles. Breath sounds equal bilaterally. GASTROINTESTINAL: Abdomen soft, non-tender, nondistended. Hepatic and splenic margins not palpable. MUSCULOSKELETAL: No obvious deformities. No clubbing. No cyanosis. No edema. NEUROLOGICAL: Awake and alert. No obvious cranial nerve deficits. Motor grossly within normal limits. Normal speech. PSYCHIATRIC: Appropriate mood and affect; insight and judgment normal. Data Data Last Documented VS Vital Signs Date Time Temp Pulse Resp B/P Pulse Ox O2 Delivery O2 Flow Rate FiO2 07/26/16 11:15 73 18 124/75 97 Room Air 07/26/16 10:15 2 07/26/16 09:04 97.5 Orders Iv Access Insert/Monitor (07/26/16 09:37) Ecg Monitoring (07/26/16 09:37) Oximetry (07/26/16 09:37) Chest, Single Ap (07/26/16 09:37) Sodium Chloride 0.9% Flush (Ns Flush) (07/26/16 09:45) Methylprednisolone So Succ Inj (Solumedr (07/26/16 09:45) Albuterol-Ipratropium Neb (Duoneb Neb) (07/26/16 09:45) Complete Blood Count With Diff (07/26/16 09:37) Basic Metabolic Panel (Bmp) (07/26/16 09:37) Electrocardiogram (07/26/16 09:23) Labs Laboratory Tests Test 07/26/16 09:45 White Blood Count 8.4 TH/MM3 Red Blood Count 5.32 MIL/MM3 Hemoglobin 16.8 GM/DL Hematocrit 49.2 % Mean Corpuscular Volume 92.4 FL Mean Corpuscular Hemoglobin 31.5 PG Mean Corpuscular Hemoglobin 34.1 % Concent Red Cell Distribution Width 13.8 % Platelet Count 271 TH/MM3 Mean Platelet Volume 9.0 FL Neutrophils (%) (Auto) 52.4 % Lymphocytes (%) (Auto) 23.4 % Monocytes (%) (Auto) 9.6 % Eosinophils (%) (Auto) 13.6 % Basophils (%) (Auto) 1.0 % Neutrophils # (Auto) 4.4 TH/MM3 Lymphocytes # (Auto) 2.0 TH/MM3 Monocytes # (Auto) 0.8 TH/MM3 Eosinophils # (Auto) 1.2 TH/MM3 Basophils # (Auto) 0.1 TH/MM3 CBC Comment DIFF FINAL Differential Comment Sodium Level 138 MEQ/L Potassium Level 4.3 MEQ/L Chloride Level 100 MEQ/L Carbon Dioxide Level 30.3 MEQ/L Anion Gap 8 MEQ/L Blood Urea Nitrogen 28 MG/DL Creatinine 1.48 MG/DL Estimat Glomerular Filtration 47 ML/MIN Rate Random Glucose 143 MG/DL Calcium Level 8.6 MG/DL MDM Medical Decision Making Medical Screen Exam Complete: Yes Emergency Medical Condition: Yes Medical Record Reviewed: Yes Differential Diagnosis Differential diagnosis includes COPD, asthma, pneumonia, bronchitis, CHF Narrative Course I have reviewed the patient's electronic medical record. Reviewed his cardiology consultation and initial history and physical as well as results of brain MRI and chest x-ray and myocardial perfusion scan IV placed I reviewed his EKG which shows atrial fibrillation but no ST elevation Extended cardiac monitoring reveals A. fib which is rate controlled I reviewed his chest x-ray which shows compensated cardiomegaly stable from prior CBC is normal Metabolic profile shows minor renal insufficiency I gave him a dose of Solu-Medrol and a nebulizer treatment His room air saturations are 100% On recheck he is feeling improved Stable for outpatient follow-up This presentation and examination seem most consistent with COPD exacerbation. He did smoke for decades but has quit Uses inhaler at home but did not try today. I don't see any evidence of acute coronary syndrome or congestive heart failure. He has no fluid overload. I wrote him 5 days of prednisone and he will use his inhaler as needed and follow-up with his primary physician Diagnosis Primary Impression: COPD with acute exacerbation Additional Instructions: The patient was advised to follow up with their physician and return if they worsen. Med/Other Pt SpecificInfo: Prescription(s) given Scripts Prednisone 20 Mg Tab40 Mg PO DAILY #10 TAB Ref 0 Take 40 mg (2 tablets) daily for 5 days Prov:Tanmay Santana MD 07/26/16 Disposition: 01 DISCHARGE HOME Condition: Stable Tanmay Santana MD Jul 26, 2016 09:42
[2016-07-26] MEDS ORDERED: RESP: ALBUTEROL 2.5 MG/IPRATROPIUM 0.5 MG NEB (SCH) INH ONE (09:45)
[2016-07-26] MEDS ORDERED: SODIUM CHLORIDE 0.9% FLUSH 5 ML FLUSH IVF PRN (09:45)
[2016-07-26] MEDS ORDERED: methylPREDNISolone SOD SUCC 125 MG/2 ML VIAL IVP ONE (09:45)
[2016-07-26 10:14] LABS: AUTOMATED NEUTROPHIL # 4.4 TH/MM3 (1.8-7.7); BASOPHIL # 0.1 TH/MM3 (0-0.2); EOSINOPHIL # 1.2 TH/MM3 (0-0.4); EOSINOPHIL % 13.6 % (0.0-4.0); HEMATOCRIT 49.2 % (39.0-51.0); HEMO FLAGS DIFF FINAL; LYMPH % 23.4 % (9.0-44.0); MEAN CELL VOLUME 92.4 FL (80.0-100.0); MEAN CORPUSCULAR HEMOGLOBIN 31.5 PG (27.0-34.0); MEAN CORPUSCULAR HGB CONC 34.1 % (32.0-36.0); MONO % 9.6 % (0.0-8.0); NEUT % 52.4 % (16.0-70.0); PLATELET COUNT 271 TH/MM3 (150-450); RED BLOOD COUNT 5.32 MIL/MM3 (4.50-5.90); RED CELL DISTRIBUTION WIDTH 13.8 % (11.6-17.2); WHITE BLOOD COUNT 8.4 TH/MM3 (4.0-11.0)
[2016-07-26 10:15] VITALS: BP 119/62; PULSE 73; RESP 18; O2SAT 97
--- NOTE | 2016-07-26 10:17 | RADRPT ---
EXAM DATE/TIME: 07/26/2016 09:47 [facility] COMPARISON: CHEST PA & LAT, July 14, 2016, 17:35. INDICATIONS : Short of breath. Intermittent chest pain. MEDICAL HISTORY : Diabetes mellitus type II. SURGICAL HISTORY : Inguinal hernia repair. ENCOUNTER: Initial ACUITY: 1 day PAIN SCORE: 0/10 LOCATION: Bilateral chest FINDINGS: The heart is enlarged. The lungs appear clear. The exam is stable compared to previous. The visualized bony structures are grossly intact. CONCLUSION: Mild cardiomegaly. Stable compared to previous examination. Ehsan Petty MD on July 26, 2016 at 10:14 Board Certified Radiologist. This report was verified electronically.
[2016-07-26 10:29] LABS: BICARBONATE 30.3 MEQ/L (21.0-32.0); POTASSIUM 4.3 MEQ/L (3.5-5.1)
[2016-07-26 11:15] VITALS: BP 124/75; PULSE 73; RESP 18; O2SAT 97
[2016-07-26] MEDS ORDERED: PRED20 PO (11:40)
--- NOTE | 2016-07-26 11:55 | EKG ---
Date Performed: 07/26/2016 Time Performed: 09:23:34 PTAGE: 70 years EKG: ATRIAL FIBRILLATION LOW QRS VOLTAGE IN PRECORDIAL LEADS ANTERIOR MYOCARDIAL INFARCTION INFE RIOR MYOCARDIAL INFARCTION ABNORMAL ECG PREVIOUS TRACING : 07/14/2016 18.14 DOCTOR: Gennaro Connor Interpretating Date/Time 07/26/2016 11:53:51
== END 2016-07-26 11:58 | disposition home or self-care (01) ==
LOC: NEPA 09:02
DX: J44.1 Chronic obstructive pulmonary disease with (acute) exacerbation (principal); R94.31 Abnormal electrocardiogram [ECG] [EKG]; E11.9 Type 2 diabetes mellitus without complications; I48.91 Unspecified atrial fibrillation; I10 Essential (primary) hypertension; E78.00 Pure hypercholesterolemia, unspecified; I25.2 Old myocardial infarction; Z79.84 Long term (current) use of oral hypoglycemic drugs; Z87.09 Personal history of other diseases of the respiratory system; Z79.01 Long term (current) use of anticoagulants; Z86.79 Personal history of other diseases of the circulatory system; Z86.2 Personal history of diseases of the blood and blood-forming organs and certain disorders involving the immune mechanism; Z87.891 Personal history of nicotine dependence
CPT/HCPCS: 71010; 80048; 85025; 93005; 94664; 96374; 99285; J2930

== ENCOUNTER → 2016-11-20 | Outpatient (CLI) | payer MEDICARE, BC ==
[~2016-11-20] MED LIST changes: +PRED20 PO
[2016-11-20 09:17] LABS: HDL CHOLESTEROL 53.1 MG/DL (40.0-60.0)
[2016-11-20 09:21] LABS: BICARBONATE 31.9 MEQ/L (21.0-32.0); POTASSIUM 3.7 MEQ/L (3.5-5.1)
== END ==
LOC: CLAB 08:21
PROVIDERS: ATTEND Family Medicine
DX: E78.00 Pure hypercholesterolemia, unspecified (principal); N18.3 Chronic kidney disease, stage 3 (moderate)
CPT/HCPCS: 36415; 80061; 80069; 82306; 83721; 83970; 84460

== ENCOUNTER 2017-01-24 19:07 | Inpatient (IN) | payer MEDICARE, BC ==
[2017-01-24] VITALS (14 sets, daily range): BP systolic 115–200; BP diastolic 57–114; PULSE 82–100; RESP 20–30; TEMP 97.8–98.5; O2SAT 97–100
[~2017-01-24] VITALS: Ht 175.3 cm; Wt 96.6 kg
[2017-01-24] MEDS ORDERED: SODIUM CHLORIDE 0.9% FLUSH 10 ML FLUSH IVF PRN (19:45)
[2017-01-24] MEDS ORDERED: methylPREDNISolone SOD SUCC 125 MG/2 ML VIAL IVP ONE (19:45)
[2017-01-24] MEDS: RESP: ALBUTEROL 2.5 MG/IPRATROPIUM 0.5 MG NEB (SCH) INH ×2 (19:53→19:54)
[2017-01-24] MEDS ORDERED: PRED5TAB PO (20:11)
--- NOTE | 2017-01-24 20:14 | PD ---
HPI Chief Complaint: Respiratory Distress Time Seen by Provider: 19:43 Travel History International Travel<30 days: No Contact w/Intl Traveler<30days: No Traveled to known affect area: No History of Present Illness HPI 71-year-old male with history of COPD, CHF presents to the ED for evaluation of 3 weeks history of worsening shortness of breath. is at bedside to help provide the history. She states that he has "gone downhill" over the last two weeks. She endorses increased fits of nonproductive coughing and associated near syncope. He states that he fell onto the right arm after one particularly bad episode recently. He did not hit his head or lose consciousness. The patient denies chest pain or palpitations. He is followed by Dr. Harrell, PCP and Dr. Thomas, pulmonology. PFSH Past Medical History Hx Anticoagulant Therapy: Yes Atrial Fibrillation: Yes Heart Rhythm Problems: Yes (AFIB) Cancer: No Cardiovascular Problems: Yes High Cholesterol: Yes Congestive Heart Failure: Yes COPD: Yes Diabetes: Yes Patient Takes Glucophage: No Endocrine: No Genitourinary: No Heparin Induced Thrombocytopen: Yes Hypertension: Yes Immune Disorder: No Implanted Vascular Access Dvce: No Musculoskeletal: No Neurologic: No Psychiatric: No Reproductive: No Respiratory: Yes Myocardial Infarction: Yes (x 4 (recent 10/01/10)) Tetanus Vaccination: Unknown Influenza Vaccination: Yes PNEUMOCCOCAL Vaccine (Year): 2 Past Surgical History Cardiac Surgery: Yes (MULTIPLE STENTS 10/01/10) Other Surgery: Yes (INGUINAL HERNIA REPAIR ) Social History Alcohol Use: Yes (1-2 drinks daily) Tobacco Use: No (quit 1992) Substance Use: No Allergies-Medications (Allergen,Severity, Reaction): Coded Allergies: enoxaparin (Verified Allergy, Severe, THROMBOCYTOPENIA, 01/24/17) heparin (porcine) (Verified Allergy, Severe, THROMBOCYTOPENIA, 01/24/17) hydrochlorothiazide (Verified Allergy, Mild, 01/24/17) RASH Reported Meds & Prescriptions Reported Meds & Active Scripts Active Reported Prednisone 5 Mg Tab 5 Mg PO DAILY Eliquis (Apixaban) 5 Mg Tab 5 Mg PO BID Aspir-81 (Aspirin) 81 Mg Tabdr 81 Mg PO HS Lasix (Furosemide) 40 Mg Tab 40 Mg PO DAILY Paroxetine (Paroxetine HCl) 10 Mg Tab 10 Mg PO DAILY Metoprolol Tartrate 100 Mg Tab 100 Mg PO BID Entresto (Sacubitril-Valsartan) 97-103 Mg Tab 1 Tab PO BID Proair Hfa 8.5 GM Inh (Albuterol Sulfate) 90 Mcg/Act Aer 2 Puff INH QID PRN 108 mcg/actuation Stiolto Respimat Inh (Tiotropium-Olodaterol Inh) 2.5-2.5 Mcg/Act Aero 2 Puff INH DAILY Glipizide 5 Mg Tab 5 Mg PO DAILY Take 30 minutes before a meal Review of Systems Except as stated in HPI: all other systems reviewed are Neg Physical Exam Narrative GENERAL: Well-nourished, well-developed white male SKIN: Pale, diaphoretic HEAD: Normocephalic. EYES: No scleral icterus. No injection or drainage. NECK: Supple, trachea midline. No JVD or lymphadenopathy. CARDIOVASCULAR: Regular rate and rhythm without murmurs, gallops, or rubs. RESPIRATORY: Tachypneic. Positive accessory muscle use. Only able to speak in few words at a time. Breath sounds with diffuse wheezes in all craig. GASTROINTESTINAL: Abdomen soft, non-tender, nondistended, protuberant. MUSCULOSKELETAL: No cyanosis, or edema. BACK: Nontender without obvious deformity. No CVA tenderness. Data Data Last Documented VS Vital Signs Date Time Temp Pulse Resp B/P (MAP) Pulse Ox O2 Delivery O2 Flow Rate FiO2 01/24/17 21:40 94 20 127/66 (86) 98 Nasal Cannula 4.00 01/24/17 20:11 30 01/24/17 19:10 98.5 Orders Orders Complete Blood Count With Diff (01/24/17 19:36) Comprehensive Metabolic Panel (01/24/17 19:36) B-Type Natriuretic Peptide (01/24/17 19:36) Act Partial Throm Time (Ptt) (01/24/17 19:36) Prothrombin Time / Inr (Pt) (01/24/17 19:36) Magnesium (Mg) (01/24/17 19:36) Ckmb (Isoenzyme) Profile (01/24/17 19:36) Troponin I (01/24/17 19:36) Urinalysis - C+S If Indicated (01/24/17 19:36) Iv Access Insert/Monitor (01/24/17 19:36) Electrocardiogram (01/24/17 19:36) Ecg Monitoring (01/24/17 19:36) Oximetry (01/24/17 19:36) Chest, Single Ap (01/24/17 19:36) Sodium Chloride 0.9% Flush (Ns Flush) (01/24/17 19:45) Methylprednisolone So Succ Inj (Solumedr (01/24/17 19:45) Albuterol-Ipratropium Neb (Duoneb Neb) (01/24/17 19:45) Arterial Blood Gas (Abg) (01/24/17 20:00) Resp Bipap / Cpap Non Invas Vt (01/24/17 ) CKMB (01/24/17 20:15) CKMB% (01/24/17 20:15) Admit Order (Ed Use Only) (01/24/17 21:54) Labs Laboratory Tests Test 01/24/17 20:15 White Blood Count 11.8 TH/MM3 Red Blood Count 4.82 MIL/MM3 Hemoglobin 15.4 GM/DL Hematocrit 47.5 % Mean Corpuscular Volume 98.4 FL Mean Corpuscular Hemoglobin 31.8 PG Mean Corpuscular Hemoglobin Concent 32.4 % Red Cell Distribution Width 13.5 % Platelet Count 251 TH/MM3 Mean Platelet Volume 8.1 FL Neutrophils (%) (Auto) 56.4 % Lymphocytes (%) (Auto) 22.9 % Monocytes (%) (Auto) 10.3 % Eosinophils (%) (Auto) 9.4 % Basophils (%) (Auto) 1.0 % Neutrophils # (Auto) 6.7 TH/MM3 Lymphocytes # (Auto) 2.7 TH/MM3 Monocytes # (Auto) 1.2 TH/MM3 Eosinophils # (Auto) 1.1 TH/MM3 Basophils # (Auto) 0.1 TH/MM3 CBC Comment DIFF FINAL Differential Comment Prothrombin Time 12.0 SEC Prothromb Time International Ratio 1.1 RATIO Activated Partial Thromboplast Time 28.4 SEC Blood Urea Nitrogen 26 MG/DL Creatinine 1.64 MG/DL Random Glucose 117 MG/DL Total Protein 7.4 GM/DL Albumin 3.5 GM/DL Calcium Level 8.6 MG/DL Magnesium Level 2.4 MG/DL Alkaline Phosphatase 87 U/L Aspartate Amino Transf (AST/SGOT) 30 U/L Alanine Aminotransferase (ALT/SGPT) 33 U/L Total Bilirubin 0.5 MG/DL Sodium Level 138 MEQ/L Potassium Level 4.1 MEQ/L Chloride Level 100 MEQ/L Carbon Dioxide Level 30.7 MEQ/L Anion Gap 7 MEQ/L Estimat Glomerular Filtration Rate 42 ML/MIN Total Creatine Kinase 118 U/L Creatine Kinase MB 2.3 NG/ML Troponin I 0.02 NG/ML B-Type Natriuretic Peptide 204 PG/ML MDM Medical Decision Making Medical Screen Exam Complete: Yes Emergency Medical Condition: Yes Differential Diagnosis COPD exacerbation versus CHF exacerbation versus pneumonia versus ACS versus other Narrative Course 71-year-old male with history of COPD, CHF, A. fib on Coumadin presents to the ED for evaluation of 3 weeks history of worsening shortness of breath. is at bedside to help provide the history. She states that he has "gone downhill" over the last two weeks. She endorses increased fits of nonproductive coughing and associated near syncope. He states that he fell onto the right arm after one particularly bad episode recently. He did not hit his head or lose consciousness. The patient denies chest pain or palpitations. He is followed by Dr. Harrell, PCP and Dr. Thomas, pulmonology. The patient is tachypneic ( rate 30), belly breathing, pale and diaphoretic on presentation. O2 saturation 93% and above. BP 200/113. Breath sounds are tight with diffuse wheezing in all craig. He has a rather protuberant but nontender belly. No lower extremity edema noted. I suspect this is COPD exacerbation. Patient was placed on BiPAP (10/5/20%.) On recheck the patient is looking better, reports improvement of symptoms, blood pressure improved to 176/85. EKG rate 102 A. fib with RVR. Reviewed by Dr. Santana. ABG: PH 7.435. PCO2 35.7. HCO3 23.6. CXR: Mild cardiomegaly per radiology read. Cardiac enzymes: Negative 1 CBC: WBC 11.8. Hemoglobin 15.4. CMP: BUN 26, creatinine 1.64 Coags: INR 1.1 BNP: 204 Patient on BiPAP ~1hour. Trialed on 4L NC. O2 sats maintained above 90. Respiratory rate down to around 20. I discussed the patient, workup and plan of care with Dr. Santana. I discussed admission plans with the patient and his who are agreeable. Call placed to the [facility]. I spoke with ANDRESSA Garcia who agrees to accept the patient to the medicine service under Dr. Torrez. Please see medicine notes for disposition. Angely King Jan 24, 2017 20:14
[2017-01-24 20:42] LABS: AUTOMATED NEUTROPHIL # 6.7 TH/MM3 (1.8-7.7); BASOPHIL # 0.1 TH/MM3 (0-0.2); EOSINOPHIL # 1.1 TH/MM3 (0-0.4); EOSINOPHIL % 9.4 % (0.0-4.0); HEMATOCRIT 47.5 % (39.0-51.0); HEMO FLAGS DIFF FINAL; LYMPH % 22.9 % (9.0-44.0); LYMPHOCYTE # 2.7 TH/MM3 (1.0-4.8); MEAN CELL VOLUME 98.4 FL (80.0-100.0); MEAN CORPUSCULAR HEMOGLOBIN 31.8 PG (27.0-34.0); MEAN CORPUSCULAR HGB CONC 32.4 % (32.0-36.0); MONO % 10.3 % (0.0-8.0); NEUT % 56.4 % (16.0-70.0); PLATELET COUNT 251 TH/MM3 (150-450); RED BLOOD COUNT 4.82 MIL/MM3 (4.50-5.90); RED CELL DISTRIBUTION WIDTH 13.5 % (11.6-17.2); WHITE BLOOD COUNT 11.8 TH/MM3 (4.0-11.0)
[2017-01-24 20:49] LABS: INTERNATIONAL NORMALIZED RATIO 1.1 RATIO
[2017-01-24 20:57] LABS: ANION GAP 7 MEQ/L (5-15); AST (GOT) 30 U/L (15-37); BICARBONATE 30.7 MEQ/L (21.0-32.0); BLOOD UREA NITROGEN 26 MG/DL (7-18); CHLORIDE 100 MEQ/L (98-107); GLOMERULAR FILTRATION RATE 42 ML/MIN (>89); MAGNESIUM 2.4 MG/DL (1.5-2.5); POTASSIUM 4.1 MEQ/L (3.5-5.1); SODIUM (NA) 138 MEQ/L (136-145)
[2017-01-24 20:58] LABS: ALT (GPT) 33 U/L (12-78); APTT (PATIENT) 28.4 SEC (24.3-30.1)
[2017-01-24 21:02] LABS: ALKALINE PHOSPHATASE 87 U/L (45-117); CREATINE KINASE 118 U/L (39-308); TOTAL BILIRUBIN ADULT 0.5 MG/DL (0.2-1.0)
[2017-01-24 21:14] LABS: CKMB 2.3 NG/ML (0.5-3.6)
--- NOTE | 2017-01-24 21:23 | RADRPT ---
EXAM DATE/TIME: 01/24/2017 20:18 [facility] COMPARISON: CHEST SINGLE AP, July 26, 2016, 9:47. INDICATIONS : Short of breath. MEDICAL HISTORY : Diabetes mellitus type II. SURGICAL HISTORY : Inguinal hernia repair. ENCOUNTER: Initial ACUITY: 1 day PAIN SCORE: 0/10 LOCATION: Bilateral chest FINDINGS: A single view of the chest demonstrates the lungs to be symmetrically aerated without evidence of mas s, infiltrate or effusion. The heart size appears possibly enlarged. There does appear to be a promi nent right cardiac fat pad. Osseous structures are intact. CONCLUSION: Mild cardiomegaly. Shankar Schmitz MD on January 24, 2017 at 21:20 Board Certified Radiologist. This report was verified electronically.
[2017-01-24] MEDS ORDERED: DEXTROSE 50% IN WATER 50 ML VIAL(D50) IV PRN (22:30)
[2017-01-24] MEDS ORDERED: RESP: ALBUTEROL 2.5 MG/3 ML NEB (PRN) INH (22:30)
[2017-01-24] MEDS ORDERED: SODIUM CHLORIDE 0.9% FLUSH 10 ML FLUSH IV FLUSH PRN (22:30)
[2017-01-24] MEDS ORDERED: GLUCAGON 1 MG/ML VIAL OTHER PRN (22:30)
[2017-01-24 22:37] LABS: BLOOD GAS BASE EXCESS -0.1 mmol/L (-2-2); BLOOD GAS HCO3 24 mmol/L (22-26); BLOOD GAS METHEMOGLOBIN 0.5 % (0-2); BLOOD GAS O2 HGB SATURATION 97 % (90-100); BLOOD GAS OXYGEN CONTENT 21.5 Vol % (12.0-20.0); BLOOD GAS PCO2 36 mmHg (38-42); BLOOD GAS PO2 111 mmHG (61-120); BLOOD GAS TOTAL HGB 15.7 G/DL (12.0-16.0); CRITICAL VALUE NO; DRAW SITE RT RADIAL; FIO2 30 %; NUMBER OF ARTERIAL PUNCTURES 2; OXYGEN DEVICE BiPAP; STAT YES; TEMP CORR TO 98.6; ULNAR PULSE PRESENT; VENT SETTINGS IPAP10/EPAP5
[2017-01-24] MEDS: methylPREDNISolone SOD SUCC 125 MG/2 ML VIAL IVP SCH (23:04)
[2017-01-25] VITALS (10 sets, daily range): BP systolic 115–141; BP diastolic 59–70; PULSE 80–112; RESP 18–20; TEMP 97–97.9; O2SAT 94–98
[2017-01-25] MEDS: RESP: ALBUTEROL 2.5 MG/IPRATROPIUM 0.5 MG NEB (SCH) INH ×4 (05:05→20:43)
[2017-01-25] MEDS: methylPREDNISolone SOD SUCC 125 MG/2 ML VIAL IVP SCH (05:36)
[2017-01-25] MEDS: INSULIN ASPART SUPPLEMENTAL SCALE SQ SCH ×4 (06:34→22:17)
[2017-01-25] MEDS: SODIUM CHLORIDE 0.9% FLUSH 10 ML FLUSH IV FLUSH SCH ×2 (10:09→21:00)
[2017-01-25] MEDS: APIXABAN 5 MG TABLET PO SCH ×2 (10:09→22:12)
--- NOTE | 2017-01-25 11:12 | HHI.HP ---
HPI Service [facility] Primary Care Physician Yusef Harrell DO Admission Diagnosis COPD exacerbation Diagnoses: Chief Complaint: SOB Travel History International Travel<30 Days: No Contact w/Intl Traveler <30 Da: No Traveled to Known Affected Are: No History of Present Illness This is a 71-year-old male with significant past medical history of coronary artery disease, prior myocardial infarction, previous stents, chronic A. fib, CHF, HIT, hypertension, DM II. Patient presented to the emergency room with complaint of worsening shortness of breath for the last 3 weeks. According to the patient, yesterday his symptoms worsen, she did nebulizers without any improvement. He's had increased wheezing, cough with some sputum that is zamora, no fever, no chills. He's had chest pain associated with the shortness of breath. He uses oxygen at home. His hr administrator is Dr. Thomas. Patient states that he's having coughing fits, approximately 2 days ago he almost fell helping his . He did injure his right arm has a bruise and a skin tear. He did not hit his head, no loss of consciousness. Patient is somewhat of a poor historian, states that he has memory problems and at times he hears voices and has hallucinations. He was last admitted to this facility in June 2016 and at that time he had neuro workup that was negative but it was thought that his symptoms were associated with early dementia. During that admission, he also had cardiac evaluation, had stress test that was negative. Echo showed EF of 50%. Patient was evaluated in the emergency room, he was noted extremely short of breath and tachypnea. His blood pressure was elevated 200/113. Laboratory workup was completed, CBC remarkable for mild leukocytosis WBC of 11.8. Patient is on chronic oral steroids. BMP remarkable for creatinine 1.64 , B natruretic peptide 204. ABGs done, pH 7.44, PCO2 36, bicarbonate 24, O2 sat 97%. Chest x-ray significant for mild cardiomegaly. 12-lead EKG show atrial fibrillation, heart rate 102. Patient was put on BiPAP initially and then titrated down to nasal cannula. He was given IV steroids and DuoNeb's. At this time, patient is sitting up in chair, he does not appear in any distress and is able to finish sentences. Patient is admitted for further evaluation and treatment. Review of Systems ROS Limitations: Poor Historian Constitutional: DENIES: Diaphoretic episodes, Fatigue, Fever, Weight gain, Weight loss, Chills, Dizziness, Change in appetite, Night Sweats Endocrine: DENIES: Heat/cold intolerance, Polydipsia, Polyuria, Polyphagia Eyes: DENIES: Blurred vision, Diplopia, Eye inflammation, Eye pain, Vision loss , Photosensitivity, Double Vision Ears, nose, mouth, throat: DENIES: Tinnitus, Hearing loss, Vertigo, Nasal discharge, Oral lesions, Throat pain, Hoarseness, Ear Pain, Running Nose, Epistaxis, Sinus Pain, Toothache, Odynophagia Respiratory: COMPLAINS OF: Cough, Wheezing, Sputum production, DENIES: Apneas, Snoring, Hemoptysis, Shortness of breath Cardiovascular: COMPLAINS OF: Chest pain, DENIES: Palpitations, Syncope, Dyspnea on Exertion, PND, Lower Extremity Edema, Orthopnea, Claudication Gastrointestinal: DENIES: Abdominal pain, Black stools, Bloody stools, Constipation, Diarrhea, Nausea, Vomiting, Difficulty Swallowing, Anorexia Genitourinary: DENIES: Sexual dysfunction, Urinary frequency, Urinary incontinence, Urgency, Hematuria, Dysuria, Nocturia, Penile Discharge, Testicular Pain, Testicular Swelling Musculoskeletal: DENIES: Joint pain, Muscle aches, Stiffness, Joint Swelling, Back pain, Neck pain Integumentary: DENIES: Abnormal pigmentation, Nail changes, Pruritus, Rash Hematologic/lymphatic: DENIES: Bruising, Lymphadenopathy Immunologic/allergic: DENIES: Eczema, Urticaria Neurologic: COMPLAINS OF: Speech Problems (WORD FINDING ), DENIES: Abnormal gait, Headache, Localized weakness, Paresthesias, Seizures, Tremor, Poor Balance Psychiatric: DENIES: Anxiety, Confusion, Mood changes, Depression, Hallucinations, Agitation, Suicidal Ideation, Homicidal Ideation, Delusions Other MEMORY PROBLEMS Past Family Social History Past Medical History Recent memory problems Atrial fibrillation Myocardial infarction x 4 Coronary artery disease and stents 5 Last cardiac catheter was in 2010 Previous tobacco abuse Hypertension Hyperlipidemia CHF HIT Echo 2010, EF 35-40% DM II Stress stress June 2016, negative. Had echo that showed EF of 50%. Past Surgical History Cardiac catheterization Multiple stents in the past Reported Medications Reported Meds & Active Scripts Active Reported Prednisone 5 Mg Tab 5 Mg PO DAILY Eliquis (Apixaban) 5 Mg Tab 5 Mg PO BID Aspir-81 (Aspirin) 81 Mg Tabdr 81 Mg PO HS Lasix (Furosemide) 40 Mg Tab 40 Mg PO DAILY Paroxetine (Paroxetine HCl) 10 Mg Tab 10 Mg PO DAILY Metoprolol Tartrate 100 Mg Tab 100 Mg PO BID Entresto (Sacubitril-Valsartan) 97-103 Mg Tab 1 Tab PO BID Proair Hfa 8.5 GM Inh (Albuterol Sulfate) 90 Mcg/Act Aer 2 Puff INH QID PRN 108 mcg/actuation Stiolto Respimat Inh (Tiotropium-Olodaterol Inh) 2.5-2.5 Mcg/Act Aero 2 Puff INH DAILY Glipizide 5 Mg Tab 5 Mg PO DAILY Take 30 minutes before a meal Allergies: Coded Allergies: enoxaparin (Verified Allergy, Severe, THROMBOCYTOPENIA, 01/24/17) heparin (porcine) (Verified Allergy, Severe, THROMBOCYTOPENIA, 01/24/17) hydrochlorothiazide (Verified Allergy, Mild, 01/24/17) RASH Active Ordered Medications Inpatient Medications Albuterol Sulfate (Albuterol Neb) 2.5 mg Q2HR NEB PRN INH SHORTNESS OF BREATH; Start 01/24/17 at 22:30 Albuterol/ Ipratropium (Duoneb Neb) 1 ampule Q6HR NEB INH Last administered on 01/25/17 08:45; Start 01/25/17 at 04:00 Apixaban (Eliquis) 5 mg BID PO Last administered on 01/25/17 10:09; Start at 09:00 Dextrose (D50w (Vial) Inj) 50 ml UNSCH PRN IV HYPOGLYCEMIA-SEE COMMENTS; Start 01/24/17 at 22:30 Glucagon (Glucagon Inj) 1 mg UNSCH PRN OTHER HYPOGLYCEMIA-SEE COMMENTS; Start 01/24/17 at 22:30 Insulin Aspart (NovoLOG SUPPLEMENTAL SCALE) 1 ACHS SLIDING SCALE SQ Last administered on 01/25/17 06:34; Start 01/25/17 at 07:00 Methylprednisolone Sodium Succinate (SoluMEDROL INJ) 60 mg Q6H IVP Last administered on 01/25/17 05:36; Start 01/24/17 at 23:00 Sodium Chloride (NS Flush) 2 ml UNSCH PRN IV FLUSH FLUSH AFTER USING IV ACCESS ; Start 01/24/17 at 22:30 Family History Reviewed, noncontributory Social History Patient is , lives at home with . Drinks 1-2 drinks daily, "apple beer". Quit smoking in 1992. No substance abuse. Physical Exam Vital Signs Vital Signs Date Time Temp Pulse Resp B/P (MAP) Pulse Ox O2 Delivery O2 Flow Rate FiO2 01/25/17 10:21 Room Air 01/25/17 08:45 97 01/25/17 08:00 Nasal Cannula 4.00 01/25/17 08:00 97.8 90 18 141/70 (93) 98 01/25/17 05:05 98 01/25/17 04:00 97.9 80 20 122/60 (80) 97 01/25/17 04:00 97.9 80 20 122/60 (80) 97 01/25/17 04:00 Nasal Cannula 4.00 01/25/17 00:00 Nasal Cannula 4.00 01/24/17 23:55 97.8 82 20 115/57 (76) 97 01/24/17 23:45 100 20 127/83 (98) 98 Nasal Cannula 4.00 01/24/17 21:40 94 20 127/66 (86) 98 Nasal Cannula 4.00 01/24/17 21:25 98 Nasal Cannula 4.00 01/24/17 21:20 98 Nasal Cannula 4.00 01/24/17 20:11 BiPAP 30 01/24/17 20:10 88 24 118/65 (82) 100 BiPAP 30 01/24/17 20:05 100 BiPAP 35 01/24/17 20:04 100 30 01/24/17 19:53 98 Nasal Cannula 3.00 01/24/17 19:52 88 30 200/114 (142) 100 Nasal Cannula 3.00 176/85 (115) 01/24/17 19:47 88 30 200/114 (142) 100 Nasal Cannula 3.00 01/24/17 19:38 99 Nasal Cannula 2.00 01/24/17 19:35 97 Room Air 01/24/17 19:10 98.5 95 30 129/80 (96) 98 Room Air Physical Exam GENERAL: This is a well-nourished, well-developed patient, in no apparent distress. SKIN: No rashes, ecchymoses or lesions. Cool and dry. HEAD: Atraumatic. Normocephalic. No temporal or scalp tenderness. EYES: Pupils equal round and reactive. Extraocular motions intact. No scleral icterus. No injection or drainage. ENT: Nose without bleeding, purulent drainage or septal hematoma. Throat without erythema, tonsillar hypertrophy or exudate. Uvula midline. Airway patent. NECK: Trachea midline. No JVD or lymphadenopathy. Supple, nontender, no meningeal signs. CARDIOVASCULAR: Regular rate and rhythm without murmurs, gallops, or rubs. RESPIRATORY: Diminished at bases, faint exp. wheezes. GASTROINTESTINAL: Abdomen soft, non-tender, nondistended. No hepato-splenomegaly , or palpable masses. No guarding. MUSCULOSKELETAL: Extremities without clubbing, cyanosis, or edema. No joint tenderness, effusion, or edema noted. No calf tenderness. Negative Homans sign bilaterally. NEUROLOGICAL: Awake, oriented x 3. Having difficult with word finding. No focal deficit. Laboratory Laboratory Tests Test 01/24/17 20:15 01/24/17 20:23 White Blood Count 11.8 Red Blood Count 4.82 Hemoglobin 15.4 Hematocrit 47.5 Mean Corpuscular Volume 98.4 Mean Corpuscular Hemoglobin 31.8 Mean Corpuscular Hemoglobin Concent 32.4 Red Cell Distribution Width 13.5 Platelet Count 251 Mean Platelet Volume 8.1 Neutrophils (%) (Auto) 56.4 Lymphocytes (%) (Auto) 22.9 Monocytes (%) (Auto) 10.3 Eosinophils (%) (Auto) 9.4 Basophils (%) (Auto) 1.0 Neutrophils # (Auto) 6.7 Lymphocytes # (Auto) 2.7 Monocytes # (Auto) 1.2 Eosinophils # (Auto) 1.1 Basophils # (Auto) 0.1 CBC Comment DIFF FINAL Differential Comment Prothrombin Time 12.0 Prothromb Time International Ratio 1.1 Activated Partial Thromboplast Time 28.4 Blood Urea Nitrogen 26 Creatinine 1.64 Random Glucose 117 Total Protein 7.4 Albumin 3.5 Calcium Level 8.6 Magnesium Level 2.4 Alkaline Phosphatase 87 Aspartate Amino Transf (AST/SGOT) 30 Alanine Aminotransferase (ALT/SGPT) 33 Total Bilirubin 0.5 Sodium Level 138 Potassium Level 4.1 Chloride Level 100 Carbon Dioxide Level 30.7 Anion Gap 7 Estimat Glomerular Filtration Rate 42 Total Creatine Kinase 118 Creatine Kinase MB 2.3 Troponin I 0.02 B-Type Natriuretic Peptide 204 Blood Gas Puncture Site RT RADIAL Blood Gas Patient Temperature 98.6 Blood Gas HCO3 24 Blood Gas Base Excess -0.1 Blood Gas Oxygen Saturation 97 Arterial Blood pH 7.44 Arterial Blood Partial Pressure CO2 36 Arterial Blood Partial Pressure O2 111 Arterial Blood Oxygen Content 21.5 Arterial Blood Carboxyhemoglobin 1.0 Arterial Blood Methemoglobin 0.5 Blood Gas Hemoglobin 15.7 Oxygen Delivery Device BiPAP Blood Gas Ventilator Setting IPAP10/EPAP5 Blood Gas Inspired Oxygen 30 Result Diagram: 01/24/17201401/24/172014 Imaging Last Impressions Chest X-Ray 01/24/17 193 Signed Impressions: Service Date/Time: Tuesday, January 24, 2017 20:18 - CONCLUSION: Mild cardiomegaly. MD Melodie Ye VTE Risk Assessment Capiva VTE Risk Assessment: Mod/High Risk (score >= 2) Caprini Risk Assessment Model Point Value = 1 Point Value = 2 Point Value = 3 Point Value = 5 Age 41-60 Minor surgery BMI > 25 kg/m2 Swollen legs Varicose veins or History of unexplained or recurrent spontaneous Oral contraceptives or hormone replacement Sepsis (< 1 month) Serious lung disease, including pneumonia (< 1 month) Abnormal pulmonary function Acute myocardial infarction Congestive heart failure (< 1 month) History of inflammatory bowel disease Medical patient at bed rest Age 61-74 Arthroscopic surgery Major open surgery (> 45 min) Laparoscopic surgery (> 45 min) Malignancy Confined to bed (> 72 hours) Immobilizing plaster cast Central venous access Age >= 75 History of VTE Family history of VTE Factor V Leiden Prothrombin [id number] Lupus anticoagulant Anticardiolipin antibodies Elevated serum homocysteine Heparin-induced thrombocytopenia Other congenital or acquired thrombophilia Stroke (< 1 month) Elective arthroplasty Hip, pelvis, or leg fracture Acute spinal cord injury (< 1 month) Prophylaxis Regimen Total Risk Factor Score Risk Level Prophylaxis Regimen 0-1 Low Early ambulation 2 Moderate Order ONE of the following: *Sequential Compression Device (SCD) *Heparin 5000 units SQ BID 3-4 Higher Order ONE of the following medications: *Heparin 5000 units SQ TID *Enoxaparin/Lovenox 40 mg SQ daily (WT < 150 kg, CrCl > 30 mL/min) *Enoxaparin/Lovenox 30 mg SQ daily (WT < 150 kg, CrCl > 10-29 mL/min) *Enoxaparin/Lovenox 30 mg SQ BID (WT < 150 kg, CrCl > 30 mL/min) AND/OR *Sequential Compression Device (SCD) 5 or more Highest Order ONE of the following medications: *Heparin 5000 units SQ TID (Preferred with Epidurals) *Enoxaparin/Lovenox 40 mg SQ daily (WT < 150 kg, CrCl > 30 mL/min) *Enoxaparin/Lovenox 30 mg SQ daily (WT < 150 kg, CrCl > 10-29 mL/min) *Enoxaparin/Lovenox 30 mg SQ BID (WT < 150 kg, CrCl > 30 mL/min) AND *Sequential Compression Device (SCD) Assessment and Plan Problem List: (1) COPD with acute exacerbation ICD Codes: J44.1 - Chronic obstructive pulmonary disease with (acute) exacerbation Status: Acute (2) SANDY (acute kidney injury) ICD Codes: N17.9 - Acute kidney failure, unspecified Status: Acute (3) CHF (congestive heart failure) ICD Codes: I50.9 - Heart failure, unspecified Status: Acute (4) Hypertension ICD Codes: I10 - Essential (primary) hypertension Status: Chronic (5) Memory deficit ICD Codes: R41.3 - Other amnesia Status: Chronic (6) Diabetes 1.5, managed as type 2 ICD Codes: E13.9 - Other specified diabetes mellitus without complications Status: Chronic (7) Hx of myocardial infarction ICD Codes: I25.2 - Old myocardial infarction Status: Chronic (8) CAD (coronary artery disease) ICD Codes: I25.10 - Atherosclerotic heart disease of [place] coronary artery without angina pectoris Status: Chronic (9) Expressive aphasia ICD Codes: R47.01 - Aphasia Status: Chronic (10) Atrial fibrillation ICD Codes: I48.91 - Unspecified atrial fibrillation Status: Chronic Assessment and Plan Admit to Dr. Torrez 71-year-old male with history of CAD, CHF, A. fib, COPD. Presented to emergency room with increasing shortness of breath, patient is oxygen dependent and on nebulizer. Also with findings of possible CHF exacerbation, elevated B natruretic peptide and chest x-ray findings. COPD exacerbation -Continue with Solu-Medrol 40 mg IV every 8 -Continue with supplement oxygen -Continue with DuoNeb's -Consult pulmonology for evaluation Mild CHF exacerbation, possibly combined. -Continue with Lasix 40 mg by mouth daily -Continue with Lopressor -Continue with Entresto -2-D echo was done in June 2016, EF 50%. Acute kidney injury, patient on diuretics. -Repeat BMP -Avoid nephrotoxic agents Endorses hallucinations, memory problems. Vision with known early dementia. Had neuro workup. 2017 -We'll check a CT of the head We'll check TSH, B12 and RPR -Continue with aspirin A. fib, stable Continuous cardiac telemetry Continue beta blockers Continue with Eliquis 5 mg by mouth twice a day CAD, hx [place] -continue with home meds DM II -Accu-Cheks before meals and at bedtime with insulin therapy as needed Home medications reviewed, initiated as indicated Continue with Eliquis for DVT prophylaxis Plan of care has been discussed with the patient, attending and registered nurse. Further management of the patient will be dependent on the hospital course Patient requires inpatient admission for anticipated stay greater than 2 days for COPD exacerbation, CHF exacerbation, acute kidney injury. Patient at risk for complications, due to advanced age and comorbidities that can potentially lead to multiorgan failure, possibly . Patient requires admission for diuretics, IV steroids, oxygen, DuoNeb's, evaluation by pulmonology. Anticipated discharge back to home with home health care when stable This patient was seen by myself and Dr. Torrez, this H&P is written on his behalf Physician Certification 2 Midnight Certification Type: Admission for Inpatient Services Order for Inpatient Services The services are ordered in accordance with Medicare regulations or non- Medicare payer requirements, as applicable. In the case of services not specified as inpatient-only, they are appropriately provided as inpatient services in accordance with the 2-midnight benchmark. Estimated LOS (days): 2 2 days is the estimated time the patient will need to remain in the hospital, assuming treatment plan goals are met and no additional complications. Post-Hospital Plan: Home Health Problem Qualifiers (1) CHF (congestive heart failure): Qualified Codes: I50.43 - Acute on chronic combined systolic (congestive) and diastolic (congestive) heart failure (2) Hypertension: Qualified Codes: I10 - Essential (primary) hypertension (3) CAD (coronary artery disease): Qualified Codes: I25.10 - Atherosclerotic heart disease of [place] coronary artery without angina pectoris (4) Atrial fibrillation: Qualified Codes: I48.2 - Chronic atrial fibrillation Annel Candelario Jan 25, 2017 11:12
[2017-01-25] MEDS ORDERED: PILL SPLITTER OTHER PRN (11:30)
[2017-01-25] MEDS ORDERED: TIOTROPIUM INH SCH (12:00)
[2017-01-25] MEDS ORDERED: OLODATEROL INH SCH (12:00)
[2017-01-25] MEDS: PARoxetine HCL 20 MG TAB PO SCH (12:23)
[2017-01-25] MEDS: FUROSEMIDE 40 MG TAB PO SCH (12:23)
[2017-01-25] MEDS: SACUBITRIL/VALSARTAN 97 MG-103 MG TAB PO SCH ×2 (12:35→22:11)
[2017-01-25] MEDS: methylPREDNISolone SOD SUCC 40 MG/1 ML VIAL IV PUSH SCH ×2 (15:08→22:12)
--- NOTE | 2017-01-25 16:15 | RADRPT ---
EXAM DATE/TIME: 01/25/2017 15:59 [facility] COMPARISON: CT BRAIN W/O CONTRAST, July 14, 2016, 20:44. INDICATIONS : Confusion with altered mental status. RADIATION DOSE: 56.35 CTDIvol (mGy) MEDICAL HISTORY : Myocardial infarction. Congestive heart failure. Hypertension.Diabetes. SURGICAL HISTORY : Coronary artery stent. ENCOUNTER: Initial ACUITY: 1 day PAIN SCALE: 3/10 LOCATION: Bilateral cranial TECHNIQUE: Multiple contiguous axial images were obtained of the head. Using automated exposure control and adj ustment of the mA and/or kV according to patient size, radiation dose was kept as low as reasonably a chievable to obtain optimal diagnostic quality images. DICOM format image data is available electro nically for review and comparison. FINDINGS: CEREBRUM: The ventricles are normal for age. No evidence of midline shift, mass lesion, hemorrhage or acute in farction. No extra-axial fluid collections are seen. POSTERIOR FOSSA: The cerebellum and brainstem are intact. The 4th ventricle is midline. The cerebellopontine angle i s unremarkable. EXTRACRANIAL: The visualized portion of the orbits is intact. SKULL: The calvaria is intact. No evidence of skull fracture. CONCLUSION: Unremarkable noncontrast CT. Tom Rosas MD on January 25, 2017 at 16:09 Board Certified Radiologist. This report was verified electronically.
--- NOTE | 2017-01-25 17:55 | EKG ---
Date Performed: 01/24/2017 Time Performed: 20:37:03 PTAGE: 71 years EKG: ATRIAL FIBRILLATION WITH RAPID VENTRICULAR RESPONSE LOW QRS VOLTAGE IN PRECORDIAL LEADS ANT ERIOR MYOCARDIAL INFARCTION PROBABLE INFERIOR MYOCARDIAL INFARCTION ABNORMAL ECG Compared to prior tr acing no significant change PREVIOUS TRACING : 07/26/2016 09.23.34 DOCTOR: Khadar Palomares Interpretating Date/Time 01/25/2017 17:54:39
--- NOTE | 2017-01-25 21:46 | MB ---
cc: Reece GILMAN DATE OF CONSULTATION 01/25/17 HISTORY OF PRESENT ILLNESS Mr. Sanchez is a 71-year-old white male whom I have known for several years with moderately severe COPD. I last saw him in the office in September and he really had had a difficult winter. We put him on a low dose of prednisone after a tapering course was very helpful and that made a big difference. We decided to leave him on 5 mg a day along with his [place], his nebulizer which he uses two to three times a day. He presented to the emergency room yesterday with increasing shortness of breath, mild CHF and probably an exacerbation of COPD. His said it came on rather suddenly. No chest pain. He was a former smoker, probably 50-60 pack years but quit 20 years ago. Last chest x-ray as an outpatient was in July with cardiomegaly but no evidence of heart failure. He really had no preceding symptoms such as cough or congestion. No purulent sputum. He does have significant underlying heart disease. He has coronary disease. He has had several stents placed in the past and ejection fractions have been in the range of 30-35%. He is followed by Dr. Palomares. SOCIAL HISTORY living with his who is very supportive. FAMILY HISTORY Father in his 50s of lung disease. Mother had diabetes and coronary disease. Two children in good health. ADDITIONAL PAST HISTORY 1. Obstructive sleep apnea, although he does not use C-PAP. 2. Hypertension. 3. He has had recent loss of memory, probable Alzheimer's disease. REVIEW OF SYSTEMS Other than that noted above negative. No increasing edema, orthopnea or PND. PHYSICAL EXAMINATION VITAL SIGNS: 98, 124/70, pulse 92. RR 18, sat currently 93% on room air. HEENT: Sclerae anicteric. NECK: Neck veins are flat. CHEST: Diminished but no wheezes or congestion. No basilar rales. CARDIAC: Regular rhythm. Soft systolic murmur. EXTREMITIES: No pitting edema or cyanosis. Mr. Sanchez presented with increasing shortness of breath, could have been mild CHF, possibly a mild exacerbation of his underlying COPD. He is marginally compensated with lung functions in the range of 50% and an EF of only 30-35%. He really looks much better. He says he feels much better. We will switch him over if stable to oral therapy and consider discharge within a day or two. Further diagnostic and/or therapeutic intervention will depend on his ongoing clinical course. R. MD STACEY Ny/ /4:02 PM /9:34 PM
[2017-01-25] MEDS: ASPIRIN EC 81 MG TABEC PO SCH (22:12)
[2017-01-25] MEDS: METOPROLOL TARTRATE 100 MG TAB PO SCH (22:12)
[2017-01-26] VITALS (8 sets, daily range): BP systolic 125–145; BP diastolic 59–82; PULSE 89–110; RESP 18–20; TEMP 97.3–98; O2SAT 94–97
[2017-01-26] MEDS: RESP: ALBUTEROL 2.5 MG/IPRATROPIUM 0.5 MG NEB (SCH) INH ×4 (05:10→21:35)
[2017-01-26] MEDS: methylPREDNISolone SOD SUCC 40 MG/1 ML VIAL IV PUSH SCH (05:32)
[2017-01-26] MEDS: INSULIN ASPART SUPPLEMENTAL SCALE SQ SCH ×4 (05:33→21:00)
[2017-01-26] MEDS: glipiZIDE 5 MG TAB PO SCH (08:24)
[2017-01-26] MEDS: FUROSEMIDE 40 MG TAB PO SCH (08:24)
[2017-01-26] MEDS: METOPROLOL TARTRATE 100 MG TAB PO SCH ×2 (08:24→21:01)
[2017-01-26] MEDS: SODIUM CHLORIDE 0.9% FLUSH 10 ML FLUSH IV FLUSH SCH ×2 (08:25→21:00)
[2017-01-26] MEDS: PARoxetine HCL 20 MG TAB PO SCH (08:25)
[2017-01-26] MEDS: APIXABAN 5 MG TABLET PO SCH ×2 (08:25→21:02)
[2017-01-26 10:27] LABS: HEMATOCRIT 44.9 % (39.0-51.0); MEAN CELL VOLUME 98.8 FL (80.0-100.0); MEAN CORPUSCULAR HEMOGLOBIN 32.3 PG (27.0-34.0); MEAN CORPUSCULAR HGB CONC 32.7 % (32.0-36.0); PLATELET COUNT 247 TH/MM3 (150-450); RED BLOOD COUNT 4.54 MIL/MM3 (4.50-5.90); RED CELL DISTRIBUTION WIDTH 13.8 % (11.6-17.2); REVIEW FLAG FINAL; WHITE BLOOD COUNT 21.8 TH/MM3 (4.0-11.0)
--- NOTE | 2017-01-26 10:42 | HHI.PR ---
Subjective Remarks awake, oriented x 2 forgetful no focal deficits states "breathing better" no wheezing no cough no sputum per staff, more disoriented at night Objective Objective Results - Vital Signs Date Time Temp Pulse Resp B/P (MAP) Pulse Ox O2 Delivery O2 Flow Rate FiO2 01/26/17 10:17 97 21 01/26/17 08:00 97.7 89 18 125/81 (96) 95 01/26/17 05:13 96 01/26/17 04:17 98.0 98 20 125/59 (81) 94 01/25/17 20:57 Room Air 01/25/17 20:43 95 21 01/25/17 20:05 105 01/25/17 20:00 97.9 112 20 115/63 (80) 95 01/25/17 16:00 97.0 93 18 125/59 (81) 94 01/25/17 12:00 97.4 83 18 124/70 (88) 97 I/O 01/25/17 01/25/17 01/25/17 01/26/17 01/26/17 01/26/17 07:00 15:00 23:00 07:00 15:00 23:00 Intake Total 960 ml 240 ml Balance 960 ml 240 ml Intake Oral 960 ml 240 ml # Voids 4 1 # Bowel Movements 1 Result Diagram: 01/24/17201401/24/172014 Imaging Last Impressions Chest X-Ray 01/24/17 193 Signed Impressions: Service Date/Time: Tuesday, January 24, 2017 20:18 - CONCLUSION: Mild cardiomegaly. Shankar Schmitz MD Other Results Laboratory Tests Test 01/25/17 14:30 01/26/17 07:33 Vitamin B12 Level 572 Thyroid Stimulating Hormone 3rd Gen 0.210 ROS General: Other (12 point ros completed, negative except as noted above, unreliable ) Physical Exam Physical Exam GENERAL: This is a well-nourished, well-developed patient, in no apparent distress. SKIN: No rashes, ecchymoses or lesions. Cool and dry. HEAD: Atraumatic. Normocephalic. No temporal or scalp tenderness. EYES: Pupils equal round and reactive. Extraocular motions intact. No scleral icterus. No injection or drainage. ENT: Nose without bleeding, purulent drainage or septal hematoma. Throat without erythema, tonsillar hypertrophy or exudate. Uvula midline. Airway patent. NECK: Trachea midline. No JVD or lymphadenopathy. Supple, nontender, no meningeal signs. CARDIOVASCULAR: Regular rate and rhythm without murmurs, gallops, or rubs. RESPIRATORY: Diminished at bases GASTROINTESTINAL: Abdomen soft, non-tender, nondistended. No hepato-splenomegaly , or palpable masses. No guarding. MUSCULOSKELETAL: Extremities without clubbing, cyanosis, or edema. No joint tenderness, effusion, or edema noted. No calf tenderness. Negative Homans sign bilaterally. NEUROLOGICAL: Awake, oriented x 2. Having difficult with word finding. No focal deficit. Urinary Catheter: No Vascular Central Line Catheter: No A/P Diagnosis: (1) COPD with acute exacerbation ICD Codes: J44.1 - Chronic obstructive pulmonary disease with (acute) exacerbation Status: Acute (2) SANDY (acute kidney injury) ICD Codes: N17.9 - Acute kidney failure, unspecified Status: Acute (3) CHF (congestive heart failure) ICD Codes: I50.9 - Heart failure, unspecified Status: Acute (4) Hypertension ICD Codes: I10 - Essential (primary) hypertension Status: Chronic (5) Memory deficit ICD Codes: R41.3 - Other amnesia Status: Chronic (6) Diabetes 1.5, managed as type 2 ICD Codes: E13.9 - Other specified diabetes mellitus without complications Status: Chronic (7) Hx of myocardial infarction ICD Codes: I25.2 - Old myocardial infarction Status: Chronic (8) CAD (coronary artery disease) ICD Codes: I25.10 - Atherosclerotic heart disease of [place] coronary artery without angina pectoris Status: Chronic (9) Expressive aphasia ICD Codes: R47.01 - Aphasia Status: Chronic (10) Atrial fibrillation ICD Codes: I48.91 - Unspecified atrial fibrillation Status: Chronic (11) Hypothyroid ICD Codes: E03.9 - Hypothyroidism, unspecified Status: Chronic Assessment and Plan 71-year-old male with history of CAD, CHF, A. fib, COPD. Presented to emergency room with increasing shortness of breath, patient is oxygen dependent and on nebulizer. Also with findings of possible CHF exacerbation, elevated B natruretic peptide and chest x-ray findings. COPD exacerbation -change to PO steroids -Continue with supplement oxygen -Continue with DuoNeb's -appreciate pulm input -overall pt. improving, RA sats 97%. Stable for dc Mild CHF exacerbation, possibly combined. -Continue with Lasix 40 mg by mouth daily -Continue with Lopressor -Continue with Entresto -2-D echo was done in June 2016, EF 50%. -symptoms improved, diuresing well Acute kidney injury, patient on diuretics. -BMP pending -Avoid nephrotoxic agents Endorses hallucinations, memory problems. Vision with known early dementia. Had neuro workup. 2017 -CT of the head ok Depressed TSH, apparently was recently dx with hypothyroid and started on Synthroid 50 mg PO 1 week ago. Has f/u appointment with endocrinology -Continue with aspirin -d/w at length, memory deficits have been progressing for a few months, recommend that he f/u as OP with Dr. Calzada who evaluated him while he was here a few months back. is agreeable and will be making appointment A. fib, stable Continuous cardiac telemetry Continue beta blockers Continue with Eliquis 5 mg by mouth twice a day CAD, hx [place] -continue with home meds DM II -Accu-Cheks before meals and at bedtime with insulin therapy as needed Newly dx hypothyroid -TSH depressed -f/u endo, has appointment, will not adjust. Was started on med, 1 week ago. Continue with Eliquis for DVT prophylaxis CM consult for DC planning arrange [facility], dw , agreeable plan to dc today, waiting for labs need to f/u Dr. Thomas, Endocrinology, Dr. Calzada avoid any ETOH, states he only drinks 2 beers a week heart healthy diet activity as tolerated, no driving D/W RN D/W Dr. Torrez D/W pt D/W pt's at length, questions answered in detail This patient was seen by myself and Dr. Torrez, this note is written on his behalf Problem Qualifiers (1) CHF (congestive heart failure): Qualified Codes: I50.43 - Acute on chronic combined systolic (congestive) and diastolic (congestive) heart failure (2) Hypertension: Qualified Codes: I10 - Essential (primary) hypertension (3) CAD (coronary artery disease): Qualified Codes: I25.10 - Atherosclerotic heart disease of [place] coronary artery without angina pectoris (4) Atrial fibrillation: Qualified Codes: I48.2 - Chronic atrial fibrillation (5) Hypothyroid: Qualified Codes: E03.9 - Hypothyroidism, unspecified GrossMannyAnnel G. [employer]RAILLE DUPLICATING MACHINE OPERATOR Jan 26, 2017 10:42
--- NOTE | 2017-01-26 10:43 | HHI.FF ---
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 My clinical findings support the need for the requested home health care services because: Patient has SOB Limited ability to care for self Need for psychosocial assistance Impaired cognition/judgement I certify that my clinical findings support that this patient is homebound because: Impaired cognitive ability/safety Hx COPD- exertion dyspnea/weakness Unsteady gait/balance Unsafe to leave home unassisted Annel Candelario [facility] Jan 26, 2017 10:43
[2017-01-26] MEDS ORDERED: PRED20 PO (10:44)
--- NOTE | 2017-01-26 10:45 | HHI.DCPOC ---
Discharge Care Plan Diagnosis: (1) CHF (congestive heart failure) (2) COPD with acute exacerbation Your Health Problems Are: Chest Pain Cough Fluid/Lung Overload Shortness of Breath Goals to Promote Your Health * To prevent worsening of your condition and complications * To maintain your health at the optimal level Directions to Meet Your Goals Take your medications as prescribed Follow your dietary instruction Follow activity as directed Keep your appointments as scheduled Take your immunizations and boosters as scheduled If your symptoms worsen call your PCP, if no PCP go to Urgent Care Center or Emergency Room Smoking is Dangerous to Your Health. Avoid second hand smoke Call the 24-hour hour crisis hotline for domestic abuse at Annel Candelario. G[employer] BASKET P[employer]ER Jan 26, 2017 10:45
--- NOTE | 2017-01-26 10:46 | HHI.DS ---
Discharge Summary Admission Date Jan 24, 2017 at 21:55 Discharge Date: Jan 27, 2017 Admitting Diagnosis COPD exacerbation (1) COPD with acute exacerbation ICD Codes: J44.1 - Chronic obstructive pulmonary disease with (acute) exacerbation Status: Acute (2) SANDY (acute kidney injury) ICD Codes: N17.9 - Acute kidney failure, unspecified Status: Acute (3) CHF (congestive heart failure) ICD Codes: I50.9 - Heart failure, unspecified Status: Acute (4) Hypertension ICD Codes: I10 - Essential (primary) hypertension Status: Chronic (5) Memory deficit ICD Codes: R41.3 - Other amnesia Status: Chronic (6) Diabetes 1.5, managed as type 2 ICD Codes: E13.9 - Other specified diabetes mellitus without complications Status: Chronic (7) Hx of myocardial infarction ICD Codes: I25.2 - Old myocardial infarction Status: Chronic (8) CAD (coronary artery disease) ICD Codes: I25.10 - Atherosclerotic heart disease of [place] coronary artery without angina pectoris Status: Chronic (9) Expressive aphasia ICD Codes: R47.01 - Aphasia Status: Chronic (10) Atrial fibrillation ICD Codes: I48.91 - Unspecified atrial fibrillation Status: Chronic (11) Hypothyroid ICD Codes: E03.9 - Hypothyroidism, unspecified Status: Chronic CBC/BMP: 01/26/17 0733 01/24/172014 Significant Findings Laboratory Tests Test 01/24/17 20:15 01/24/17 20:23 01/25/17 14:30 01/26/17 07:33 White Blood Count 11.8 TH/MM3 (4.0-11.0) 21.8 TH/MM3 (4.0-11.0) Monocytes (%) (Auto) 10.3 % (0.0-8.0) Eosinophils (%) (Auto) 9.4 % (0.0-4.0) Monocytes # (Auto) 1.2 TH/MM3 (0-0.9) Eosinophils # (Auto) 1.1 TH/MM3 (0-0.4) Prothrombin Time 12.0 SEC (9.8-11.6) Blood Urea Nitrogen 26 MG/DL (7-18) Creatinine 1.64 MG/DL (0.60-1.30) Random Glucose 117 MG/DL (74-106) Estimat Glomerular Filtration Rate 42 ML/MIN (>89) B-Type Natriuretic Peptide 204 PG/ML (0-100) Arterial Blood pH 7.44 (7.380-7.420) Arterial Blood Partial Pressure CO2 36 mmHg (38-42) Arterial Blood Oxygen Content 21.5 Vol % (12.0-20.0) Thyroid Stimulating Hormone 3rd Gen 0.210 uIU/ML (0.358-3.740) Imaging Last Impressions Head CT 01/25/17 0000 Signed Impressions: Service Date/Time: December 15:59 - CONCLUSION: Unremarkable noncontrast CT. Tom Rosas MD Chest X-Ray 01/24/17 1936 Signed Impressions: Service Date/Time: Tuesday, January 24, 2017 20:18 - CONCLUSION: Mild cardiomegaly. Shankar Schmitz MD Hospital Course This is a 71-year-old male with significant past medical history of coronary artery disease, prior myocardial infarction, previous stents, chronic A. fib, CHF, HIT, hypertension, DM II. Patient presented to the emergency room with complaint of worsening shortness of breath for the last 3 weeks. According to the patient, yesterday his symptoms worsen, she did nebulizers without any improvement. He's had increased wheezing, cough with some sputum that is zamora, no fever, no chills. He's had chest pain associated with the shortness of breath. He uses oxygen at home. His psychological operations is Dr. Thomas. Patient states that he's having coughing fits, approximately 2 days ago he almost fell helping his . He did injure his right arm has a bruise and a skin tear. He did not hit his head, no loss of consciousness. Patient is somewhat of a poor historian, states that he has memory problems and at times he hears voices and has hallucinations. He was last admitted to this facility in June 2016 and at that time he had neuro workup that was negative but it was thought that his symptoms were associated with early dementia. During that admission, he also had cardiac evaluation, had stress test that was negative. Echo showed EF of 50%. Patient was evaluated in the emergency room, he was noted extremely short of breath and tachypnea. His blood pressure was elevated 200/113. Laboratory workup was completed, CBC remarkable for mild leukocytosis WBC of 11.8. Patient is on chronic oral steroids. BMP remarkable for creatinine 1.64 , B natruretic peptide 204. ABGs done, pH 7.44, PCO2 36, bicarbonate 24, O2 sat 97%. Chest x-ray significant for mild cardiomegaly. 12-lead EKG show atrial fibrillation, heart rate 102. Patient was put on BiPAP initially and then titrated down to nasal cannula. He was given IV steroids and DuoNeb's. At this time, patient is sitting up in chair, he does not appear in any distress and is able to finish sentences. Patient was admitted for further evaluation and treatment. COPD exacerbation -initially put on IV steroids, then changed to PO steroids - supplement oxygen -Continue with DuoNeb's -appreciate pulm input, recommendations given. -overall pt. improved, RA sats 97%. Stable for dc cleared by pulmonary Mild CHF exacerbation, possibly combined. -Continued with Lasix 40 mg by mouth daily -Continued with Lopressor -Continued with Entresto -2-D echo was done in June 2016, EF 50%. -symptoms improved, diuresing well Acute kidney injury, patient on diuretics. -renal function stable -Avoid nephrotoxic agents Endorses hallucinations, memory problems. Known early dementia. Had neuro workup 2016 -CT of the head ok Depressed TSH, apparently was recently dx with hypothyroid and started on Synthroid 50 mg PO 1 week ago. Has f/u appointment with endocrinology. Repeated TSH, ok, likely due to steroid change. -Continued with aspirin -d/w at length, memory deficits have been progressing for a few months, recommended that he f/u as OP with Dr. Calzada who evaluated him while he was here a few months back. was agreeable and will be making appointment. Also discussed looking at dementia units as she appeared to be struggling with providing 24 hour around the clock care. Reviewed advanced directives. A. fib, stable Continuous cardiac telemetry Continued beta blockers Continued with Eliquis 5 mg by mouth twice a day CAD, hx CT -continued with home meds DM II -Accu-Cheks before meals and at bedtime with insulin therapy as needed Newly dx hypothyroid -TSH depressed -Repeat TSH done -f/u endo, has appointment, will not adjust. Was started on med, 1 week ago. Continued with Eliquis for DVT prophylaxis CM consult for DC planning arranged [facility], Resp. symptoms resolved. Had episodes of inc. confusion and hallucinations at night, improved during day time. No CP, no sob stable for dc Instructed to: f/u Dr. Thomas, Endocrinology, Dr. Calzada avoid any ETOH, states he only drinks 2 beers a week heart healthy diet activity as tolerated, no driving Pt Condition on Discharge: Stable Discharge Disposition: Discharge Home Discharge Instructions Follow up Referrals: Endocrinology Neurology - 2 Weeks with Long Calzada PhD MD PCP Follow-up @ [facility] Pulmonology with Reece Thomas MD New Medications: Prednisone (Prednisone) 20 Mg Tab 20 MG PO DAILY for Broncospasm for 5 Days, #5 TAB Continued Medications: Albuterol 8.5 GM Inh (Proair Hfa 8.5 GM Inh) 90 Mcg/Act Aer 2 PUFF INH QID PRN for SHORTNESS OF BREATH, #1 INHALER 0 Refills 108 mcg/actuation Apixaban (Eliquis) 5 Mg Tab 5 MG PO BID for Blood Clot Prevention, #60 TAB [address] (Aspir-81) 81 Mg Tabdr 81 MG PO HS Furosemide (Lasix) 40 Mg Tab 40 MG PO DAILY, #30 TAB 0 Refills Glipizide (Glipizide) 5 Mg Tab 5 MG PO DAILY for Blood Sugar Management, #30 TAB 0 Refills Take 30 minutes before a meal Metoprolol Tartrate (Metoprolol Tartrate) 100 Mg Tab 100 MG PO BID, #60 TAB 0 Refills Paroxetine (Paroxetine) 10 Mg Tab 10 MG PO DAILY, #30 TAB 0 Refills Sacubitril-Valsartan (Entresto) 97-103 Mg Tab 1 TAB PO BID for Heart Failure, #30 TAB 0 Refills Tiotropium-Olodaterol Inh (Stiolto Respimat Inh) 2.5-2.5 Mcg/Act Aero 2 PUFF INH DAILY for COPD, #1 INHALER 0 Refills Discontinued Medications: Prednisone (Prednisone) 5 Mg Tab 5 MG PO DAILY, TAB 0 Refills Annel Candelario Jan 26, 2017 10:46
[2017-01-26 11:03] LABS: BICARBONATE 26.6 MEQ/L (21.0-32.0); POTASSIUM 4.3 MEQ/L (3.5-5.1)
[2017-01-26] MEDS: SACUBITRIL/VALSARTAN 97 MG-103 MG TAB PO SCH ×2 (14:28→21:00)
[2017-01-26] MEDS: ASPIRIN EC 81 MG TABEC PO SCH (21:01)
[2017-01-27] VITALS: BP 119/60; PULSE 101; RESP 20; TEMP 97.4; O2SAT 95
[2017-01-27] MEDS: RESP: ALBUTEROL 2.5 MG/IPRATROPIUM 0.5 MG NEB (SCH) INH ×2 (03:09→08:31)
[2017-01-27 04:00] VITALS: BP 179/85; PULSE 108; RESP 20; TEMP 97.4; O2SAT 96
[2017-01-27] MEDS: INSULIN ASPART SUPPLEMENTAL SCALE SQ SCH (06:29)
[2017-01-27 08:00] VITALS: BP 160/102; PULSE 78; RESP 20; TEMP 97.6; O2SAT 94
[2017-01-27] MEDS: METOPROLOL TARTRATE 100 MG TAB PO SCH (08:19)
[2017-01-27] MEDS: glipiZIDE 5 MG TAB PO SCH (08:20)
[2017-01-27] MEDS: FUROSEMIDE 40 MG TAB PO SCH (08:20)
[2017-01-27] MEDS: APIXABAN 5 MG TABLET PO SCH (08:20)
[2017-01-27] MEDS: PARoxetine HCL 20 MG TAB PO SCH (08:20)
[2017-01-27] MEDS: SODIUM CHLORIDE 0.9% FLUSH 10 ML FLUSH IV FLUSH SCH (08:25)
[2017-01-27 08:31] VITALS: O2SAT 97
[2017-01-27 08:51] LABS: FREE T3 3.35 PG/ML (2.18-3.98); FREE T4 1.21 NG/DL (0.76-1.46)
[2017-01-27] MEDS ORDERED: predniSONE 20 MG TAB PO SCH (09:00)
[2017-01-27] MEDS: SACUBITRIL/VALSARTAN 97 MG-103 MG TAB PO SCH (09:42)
[2017-01-27 10:00] VITALS: PULSE 127
--- NOTE | 2017-01-27 10:00 | HHI.PR ---
Subjective Remarks Agitated last night, was looking for his , require restraints Sitting up now, oriented 2. Remains forgetful but otherwise calm. No shortness of breath No chest pain at bedside, she is anxious to bring him home. Very concerned about his memory changes in the last couple months, multiple questions asked, discussed in detail. Objective Objective Results - Vital Signs Date Time Temp Pulse Resp B/P (MAP) Pulse Ox O2 Delivery O2 Flow Rate FiO2 01/27/17 08:31 97 01/27/17 08:00 97.6 78 20 160/102 (121) 94 01/27/17 04:00 Room Air 01/27/17 04:00 97.4 108 20 179/85 (116) 96 01/27/17 00:00 97.4 101 20 119/60 (79) 95 01/27/17 00:00 Room Air 01/26/17 20:00 Room Air 01/26/17 20:00 97.3 107 19 138/82 (100) 94 01/26/17 20:00 Room Air 01/26/17 16:00 97.5 103 18 129/72 (91) 96 01/26/17 15:58 94 21 01/26/17 12:00 97.6 110 18 145/67 (93) 96 01/26/17 10:17 97 21 I/O 01/26/17 01/26/17 01/26/17 01/27/17 01/27/17 01/27/17 07:00 15:00 23:00 07:00 15:00 23:00 Intake Total 240 ml 720 ml 240 ml Balance 240 ml 720 ml 240 ml Intake Oral 240 ml 720 ml 240 ml # Voids 1 4 2 # Bowel Movements 0 Result Diagram: 01/26/17 0733 01/26/17 0733 Imaging Last Impressions Chest X-Ray 01/24/17 193 Signed Impressions: Service Date/Time: Tuesday, January 24, 2017 20:18 - CONCLUSION: Mild cardiomegaly. Shankar Schmitz MD Other Results Laboratory Tests Test 01/27/17 07:39 Free Thyroxine 1.21 Free Triiodothyronine (T3) pg/dL 3.35 Thyroid Stimulating Hormone 3rd Gen 0.546 ROS General: Other (12 POINT ROS UNRELIABLE ) HEENT: No: Sore Throat, Dysphagia Cardiac: No: Chest Pain, Edema, Palpitations Pulmonary: SOB (IMPROVED ) GI: No: Abdominal Pain, BM, Diarrhea, N/V /PROGRAM ADVOCATE: No: Dysuria, Urgency Neuro/MS: No: Lightheaded, Confusion Psych: Anxiety (WANTS TO GO HOME ) Skin: No: Itching, Rash Physical Exam Physical Exam GENERAL: This is a well-nourished, well-developed patient, in no apparent distress. SKIN: No rashes, ecchymoses or lesions. Cool and dry. HEAD: Atraumatic. Normocephalic. No temporal or scalp tenderness. EYES: Pupils equal round and reactive. Extraocular motions intact. No scleral icterus. No injection or drainage. ENT: Nose without bleeding, purulent drainage or septal hematoma. Throat without erythema, tonsillar hypertrophy or exudate. Uvula midline. Airway patent. NECK: Trachea midline. No JVD or lymphadenopathy. Supple, nontender, no meningeal signs. CARDIOVASCULAR: Regular rate and rhythm without murmurs, gallops, or rubs. RESPIRATORY: Diminished at bases GASTROINTESTINAL: Abdomen soft, non-tender, nondistended. No hepato-splenomegaly , or palpable masses. No guarding. MUSCULOSKELETAL: Extremities without clubbing, cyanosis, or edema. No joint tenderness, effusion, or edema noted. No calf tenderness. Negative Homans sign bilaterally. NEUROLOGICAL: Awake, oriented x 2. Having difficult with word finding. No focal deficit. Urinary Catheter: No Vascular Central Line Catheter: No A/P Diagnosis: (1) COPD with acute exacerbation ICD Codes: J44.1 - Chronic obstructive pulmonary disease with (acute) exacerbation Status: Acute (2) SANDY (acute kidney injury) ICD Codes: N17.9 - Acute kidney failure, unspecified Status: Acute (3) CHF (congestive heart failure) ICD Codes: I50.9 - Heart failure, unspecified Status: Acute (4) Hypertension ICD Codes: I10 - Essential (primary) hypertension Status: Chronic (5) Memory deficit ICD Codes: R41.3 - Other amnesia Status: Chronic (6) Diabetes 1.5, managed as type 2 ICD Codes: E13.9 - Other specified diabetes mellitus without complications Status: Chronic (7) Hx of myocardial infarction ICD Codes: I25.2 - Old myocardial infarction Status: Chronic (8) CAD (coronary artery disease) ICD Codes: I25.10 - Atherosclerotic heart disease of [place] coronary artery without angina pectoris Status: Chronic (9) Expressive aphasia ICD Codes: R47.01 - Aphasia Status: Chronic (10) Atrial fibrillation ICD Codes: I48.91 - Unspecified atrial fibrillation Status: Chronic (11) Hypothyroid ICD Codes: E03.9 - Hypothyroidism, unspecified Status: Chronic Assessment and Plan 71-year-old male with history of CAD, CHF, A. fib, COPD. Presented to emergency room with increasing shortness of breath, patient is oxygen dependent and on nebulizer. Also with findings of possible CHF exacerbation, elevated B natruretic peptide and chest x-ray findings. COPD exacerbation -change to PO steroids -Continue with supplement oxygen -Continue with DuoNeb's -appreciate pulm input -overall pt. improving, RA sats 97%. Stable for dc Mild CHF exacerbation, possibly combined. -Continue with Lasix 40 mg by mouth daily -Continue with Lopressor -Continue with Entresto -2-D echo was done in June 2016, EF 50%. -symptoms improved, diuresing well Acute kidney injury, patient on diuretics. -BMP pending -Avoid nephrotoxic agents Endorses hallucinations, memory problems. Vision with known early dementia. Had neuro workup. 2017 -CT of the head ok Depressed TSH, apparently was recently dx with hypothyroid and started on Synthroid 50 mg PO 1 week ago. Has f/u appointment with endocrinology -Continue with aspirin -d/w at length, memory deficits have been progressing for a few months, recommend that he f/u as OP with Dr. Calzada who evaluated him while he was here a few months back. is agreeable and will be making appointment. A. fib, stable Continuous cardiac telemetry Continue beta blockers Continue with Eliquis 5 mg by mouth twice a day CAD, hx [place] -continue with home meds DM II -Accu-Cheks before meals and at bedtime with insulin therapy as needed Newly dx hypothyroid -TSH depressed -Repeat TSH done, is else noted. -f/u endo, has appointment, will not adjust. Was started on med, 1 week ago. Continue with Eliquis for DVT prophylaxis CM consult for DC planning arrange C, need to f/u Dr. Thomas, Endocrinology, Dr. Calzada avoid any ETOH, states he only drinks 2 beers a week heart healthy diet activity as tolerated, no driving D/W RN D/W Dr. Torrez D/W pt D/W pt's at length, questions answered in detail. Patient has been progressively getting worse with memory issues in the last couple months, she is having some difficulty handling him at home. Encourage to look for potential assisted living facilities with dementia units and to engage her children in the decision making. Discussed advanced directives, and end of life care issues. This patient was seen by myself and Dr. Torrez, this note is written on his behalf Discharge Planning 45 Problem Qualifiers (1) CHF (congestive heart failure): Qualified Codes: I50.43 - Acute on chronic combined systolic (congestive) and diastolic (congestive) heart failure (2) Hypertension: Qualified Codes: I10 - Essential (primary) hypertension (3) CAD (coronary artery disease): Qualified Codes: I25.10 - Atherosclerotic heart disease of [place] coronary artery without angina pectoris (4) Atrial fibrillation: Qualified Codes: I48.2 - Chronic atrial fibrillation (5) Hypothyroid: Qualified Codes: E03.9 - Hypothyroidism, unspecified Annel Candelario Jan 27, 2017 10:00
== END 2017-01-27 12:05 | disposition home or self-care (01) | DRG 190 ==
LOC: NEPC 19:07 → NEDA 21:55 → N04A 23:55 → N04B 01-26 00:46
PROVIDERS: ADMIT Specialist; ATTEND Specialist
DX: J44.1 Chronic obstructive pulmonary disease with (acute) exacerbation (principal); I50.43 Acute on chronic combined systolic (congestive) and diastolic (congestive) heart failure; N17.9 Acute kidney failure, unspecified; I48.2 Chronic atrial fibrillation; E11.9 Type 2 diabetes mellitus without complications; Z99.81 Dependence on supplemental oxygen; E03.9 Hypothyroidism, unspecified; R47.01 Aphasia; E78.5 Hyperlipidemia, unspecified; I11.0 Hypertensive heart disease with heart failure; I25.2 Old myocardial infarction; I25.10 Atherosclerotic heart disease of native coronary artery without angina pectoris; T38.0X5A Adverse effect of glucocorticoids and synthetic analogues, initial encounter; Z79.01 Long term (current) use of anticoagulants; Z79.52 Long term (current) use of systemic steroids; Z87.891 Personal history of nicotine dependence; Z95.5 Presence of coronary angioplasty implant and graft
CPT/HCPCS: 36600; 70450; 71010; 80048; 80053; 82550; 82552; 82607; 82805; 82948; 83735; 83880; 84439; 84443; 84481; 84484; 85025; 85027; 85610; 85730; 86592; 93005; 94002; 94640; 94664; 96374; J1815; J2920; J2930; J7512

== ENCOUNTER 2017-04-06 18:31 | Emergency (ER) | payer MEDICARE, BC ==
[~2017-04-06] VITALS: Ht 177.8 cm; Wt 92.0 kg
[~2017-04-06 18:31] MED LIST changes: +PARO10TA3 PO; -PARO1TAB71 PO; -POTA1TAB4 PO; -ROSU20 PO; -XYZA5TAB2 PO
[2017-04-06 18:33] VITALS: BP 202/89; PULSE 56; RESP 22; TEMP 97.7; O2SAT 99
[2017-04-06 18:42] VITALS: BP 177/79; PULSE 50; RESP 22; O2SAT 100
[2017-04-06] MEDS ORDERED: AMIO200T PO (18:54)
[2017-04-06] MEDS ORDERED: CLOP75TA PO (18:54)
[2017-04-06] MEDS ORDERED: ROSU1TAB8 PO (18:54)
[2017-04-06] MEDS ORDERED: KLOR20TA3 PO (18:54)
[2017-04-06] MEDS: RESP: ALBUTEROL 2.5 MG/IPRATROPIUM 0.5 MG NEB (SCH) INH ×2 (19:26→19:27)
[2017-04-06 19:29] VITALS: O2SAT 97
[2017-04-06] MEDS ORDERED: methylPREDNISolone SOD SUCC 125 MG/2 ML VIAL IV PUSH ONE (19:30)
[2017-04-06 19:51] LABS: AUTOMATED NEUTROPHIL # 3.8 TH/MM3 (1.8-7.7); BASOPHIL # 0.1 TH/MM3 (0-0.2); EOSINOPHIL # 0.1 TH/MM3 (0-0.4); EOSINOPHIL % 1.7 % (0.0-4.0); HEMATOCRIT 39.2 % (39.0-51.0); HEMO FLAGS DIFF FINAL; LYMPH % 14.9 % (9.0-44.0); LYMPHOCYTE # 0.8 TH/MM3 (1.0-4.8); MEAN CELL VOLUME 95.7 FL (80.0-100.0); MEAN CORPUSCULAR HEMOGLOBIN 32.4 PG (27.0-34.0); MEAN CORPUSCULAR HGB CONC 33.8 % (32.0-36.0); MONO % 13.4 % (0.0-8.0); PLATELET COUNT 205 TH/MM3 (150-450); RED BLOOD COUNT 4.09 MIL/MM3 (4.50-5.90); RED CELL DISTRIBUTION WIDTH 13.7 % (11.6-17.2); WHITE BLOOD COUNT 5.5 TH/MM3 (4.0-11.0)
--- NOTE | 2017-04-06 19:55 | RADRPT ---
EXAM DATE/TIME: 04/06/2017 19:18 [facility] COMPARISON: CHEST PA & LAT, October 11, 2010, 12:32. CHEST SINGLE AP, January 24, 2017, 20:18. INDICATIONS : Wheezing. Cough. MEDICAL HISTORY : None. SURGICAL HISTORY : None. ENCOUNTER: Initial ACUITY: 2 days PAIN SCORE: 6/10 LOCATION: Bilateral chest FINDINGS: A single view of the chest demonstrates the lungs to be symmetrically aerated without evidence of mas s, infiltrate or effusion. The stable moderate cardiomegaly. No pulmonary vascular engorgement. Promi nent epicardial fat pad degenerative density at the right cardiophrenic angle. This is stable. Osseou s structures are intact. CONCLUSION: 1. Cardiomegaly without pulmonary vascular engorgement. Maxwell Stringer Jr., MD on April 06, 2017 at 19:53 Board Certified Radiologist. This report was verified electronically.
[2017-04-06 20:02] LABS: POTASSIUM 3.8 MEQ/L (3.5-5.1)
--- NOTE | 2017-04-06 20:02 | PD ---
HPI Chief Complaint: Respiratory Symptoms Time Seen by Provider: 18:43 Travel History International Travel<30 days: No Contact w/Intl Traveler<30days: No Traveled to known affect area: No History of Present Illness HPI 71-year-old male that presents to the ED for evaluation of shortness of breath and cough for the past 2 days. Patient has a chronic history of CHF and COPD. Patient denies any chest pain but does have a lot of cough and shortness of breath with exertion. He uses inhalers at home with some relief. He states having some productive cough. No sick contacts. States that he has no history of smoking. No urinary or bowel movement issues. No abdominal pain. Takes blood thinners for A. fib. Per patient the symptoms worsened today which is what prompted evaluation. He has been using his inhalers at home. He denies any blood in the sputum. No fevers chills or sweats. No recent travel. PFSH Past Medical History Hx Anticoagulant Therapy: Yes Atrial Fibrillation: Yes Heart Rhythm Problems: Yes (AFIB) Cancer: No Cardiovascular Problems: Yes (AFIB) High Cholesterol: Yes Congestive Heart Failure: Yes COPD: Yes Coronary Artery Disease: Yes Diabetes: Yes Patient Takes Glucophage: Yes Endocrine: No Genitourinary: No Heparin Induced Thrombocytopen: Yes Hypertension: Yes Immune Disorder: No Implanted Vascular Access Dvce: No Musculoskeletal: No Neurologic: No Psychiatric: No Reproductive: No Respiratory: Yes (COPD) Myocardial Infarction: Yes (x 4 (recent 10/01/10)) PNEUMOCCOCAL Vaccine (Year): 2 Past Surgical History Cardiac Surgery: Yes (MULTIPLE STENTS 10/01/10) Coronary Stent: Yes (5 STENTS) Other Surgery: Yes (INGUINAL HERNIA REPAIR ) Social History Alcohol Use: No Tobacco Use: No Substance Use: No Allergies-Medications (Allergen,Severity, Reaction): Coded Allergies: enoxaparin (Verified Allergy, Severe, THROMBOCYTOPENIA, 04/06/17) heparin (porcine) (Verified Allergy, Severe, THROMBOCYTOPENIA, 04/06/17) hydrochlorothiazide (Verified Allergy, Mild, 04/06/17) RASH Reported Meds & Prescriptions Reported Meds & Active Scripts Active Prednisone 20 Mg Tab 20 Mg PO DAILY 5 Days Reported Klor-Con M20 (Potassium Chloride Microencaps) 20 Meq Tab 20 Meq PO DAILY Rosuvastatin (Rosuvastatin Calcium) 20 Mg Tab 20 Mg PO DAILY Clopidogrel (Clopidogrel Bisulfate) 75 Mg Tab 75 Mg PO DAILY Amiodarone (Amiodarone HCl) 200 Mg Tab 200 Mg PO DAILY Eliquis (Apixaban) 5 Mg Tab 5 Mg PO BID Aspir-81 (Aspirin) 81 Mg Tabdr 81 Mg PO HS Lasix (Furosemide) 40 Mg Tab 40 Mg PO DAILY Paroxetine (Paroxetine HCl) 10 Mg Tab 10 Mg PO DAILY Metoprolol Tartrate 100 Mg Tab 100 Mg PO BID Entresto (Sacubitril-Valsartan) 97-103 Mg Tab 1 Tab PO BID Proair Hfa 8.5 GM Inh (Albuterol Sulfate) 90 Mcg/Act Aer 2 Puff INH QID PRN 108 mcg/actuation Stiolto Respimat Inh (Tiotropium-Olodaterol Inh) 2.5-2.5 Mcg/Act Aero 2 Puff INH DAILY Glipizide 5 Mg Tab 5 Mg PO DAILY Take 30 minutes before a meal Review of Systems Except as stated in HPI: all other systems reviewed are Neg Physical Exam Narrative GENERAL: Well-nourished, well-developed patient in no apparent distress. SKIN: Warm and dry. HEAD: Atraumatic. Normocephalic. EYES: Pupils equal and round reactive to light and accommodation. No scleral icterus. No injection or drainage. ENT: No nasal bleeding or discharge. Mucous membranes pink and moist. TMs are clear with no sign of infection or perforation. No mastoid tenderness. Ear canals are intact bilaterally. No lymphadenopathy. Nostril mucosa is red and moist with clear mucus noted. No sinus tenderness to palpation noted. Tonsils are not enlarged or swollen. No ulvua Deviation. Tongue is midline. NECK: Trachea midline. No JVD. No meningeal signs noted CARDIOVASCULAR: Regular rate and rhythm. RESPIRATORY: No accessory muscle use. Wheezings heard in all craig especially the lower lung craig. Breath sounds equal bilaterally. GASTROINTESTINAL: Abdomen soft, non-tender, nondistended. Hepatic and splenic margins not palpable. MUSCULOSKELETAL: Extremities without clubbing, cyanosis, or edema. No obvious deformities. NEUROLOGICAL: Awake and alert. No obvious cranial nerve deficits. Motor grossly within normal limits. Five out of 5 muscle strength in the arms and legs. Normal speech. PSYCHIATRIC: Appropriate mood and affect; insight and judgment normal. Data Data Last Documented VS Vital Signs Date Time Temp Pulse Resp B/P (MAP) Pulse Ox O2 Delivery O2 Flow Rate FiO2 04/06/17 19:29 97 21 04/06/17 19:18 Room Air 04/06/17 18:42 50 22 177/79 (111) 04/06/17 18:33 97.7 Orders Orders Electrocardiogram (04/06/17:17) Basic Metabolic Panel (Bmp) (04/06/17 19:17) Complete Blood Count With Diff (04/06/17:17) Chest, Single Ap (04/06/17:17) Ecg Monitoring (04/06/17:) Iv Access Insert/Monitor (04/06/17:) Oximetry (04/06/17:) Oxygen Administration (04/06/17:) Methylprednisolone So Succ Inj (Solumedr (04/06/17 19:30) Albuterol-Ipratropium Neb (Duoneb Neb) (04/06/17 19:30) B-Type Natriuretic Peptide (04/06/17 19:17) Ed Discharge Order (04/06/17 20:50) Labs Laboratory Tests Test 04/06/17 19:00 White Blood Count 5.5 TH/MM3 Red Blood Count 4.09 MIL/MM3 Hemoglobin 13.3 GM/DL Hematocrit 39.2 % Mean Corpuscular Volume 95.7 FL Mean Corpuscular Hemoglobin 32.4 PG Mean Corpuscular Hemoglobin Concent 33.8 % Red Cell Distribution Width 13.7 % Platelet Count 205 TH/MM3 Mean Platelet Volume 9.2 FL Neutrophils (%) (Auto) 69.0 % Lymphocytes (%) (Auto) 14.9 % Monocytes (%) (Auto) 13.4 % Eosinophils (%) (Auto) 1.7 % Basophils (%) (Auto) 1.0 % Neutrophils # (Auto) 3.8 TH/MM3 Lymphocytes # (Auto) 0.8 TH/MM3 Monocytes # (Auto) 0.7 TH/MM3 Eosinophils # (Auto) 0.1 TH/MM3 Basophils # (Auto) 0.1 TH/MM3 CBC Comment DIFF FINAL Differential Comment Blood Urea Nitrogen 26 MG/DL Creatinine 1.42 MG/DL Random Glucose 216 MG/DL Calcium Level 8.4 MG/DL Sodium Level 138 MEQ/L Potassium Level 3.8 MEQ/L Chloride Level 102 MEQ/L Carbon Dioxide Level 28.0 MEQ/L Anion Gap 8 MEQ/L Estimat Glomerular Filtration Rate 49 ML/MIN B-Type Natriuretic Peptide 668 PG/ML MDM Medical Decision Making Medical Screen Exam Complete: Yes Emergency Medical Condition: Yes Medical Record Reviewed: Yes Interpretation(s) CBC & BMP Diagram 04/06/17 19:00 Calcium Level 8.4 L Last Impressions Chest X-Ray 04/06/171916 Signed Impressions: Service Date/Time: Thursday, April 06, 2017 19:18 - CONCLUSION: 1. Cardiomegaly without pulmonary vascular engorgement. Maxwell Stringer Jr., MD BNP in the 600s Differential Diagnosis CHF exacerbation versus COPD exacerbation versus COPD versus pneumonia versus URI versus bronchitis Narrative Course 71-year-old male that presents to the ED for evaluation of shortness of breath. Patient was properly examined and was found to have signs and symptoms of unclear to me at this time with likely COPD exacerbation. Labs and imaging were ordered. Patient was given breathing treatments and Solu-Medrol. Labs and imaging showed no sign of acute disease is different and slightly elevated BNP. At this time patient does not appear to be heart failure. He does appear to have a COPD exacerbation. We did had the patient do a walking test and was able to tolerate a walking test very well. His oxygenation has been normal. He feels improved after breathing treatments here. At this time I recommend outpatient trial of azithromycin and prednisone as well as breathing treatments at home. Patient states that he has enough of this medication at home. Patient was told that if anything worsens he is to come back to the ED. Follow with PCP. See ED worsening symptoms. Diagnosis Primary Impression: COPD with acute exacerbation Patient Instructions: General Instructions Additional Instructions: Motrin and Tylenol for pain and fever. You can use [id number] antihistamine as well as well as Mucinex as needed for runny nose and congestion. Cough drops for cough as needed. Drink plenty of fluids. Follow-up with PCP. See ED for worsening symptoms. Med/Other Pt SpecificInfo: Prescription(s) given Scripts Azithromycin (Azithromycin) 250 Mg Tab 250 MG PO DIRECTED for Infection, #6 TAB 0 Refills Take 2 tabs (500 mg) on day 1 then 1 tab daily x 4 days. Prov: Ehsan Graff MD 11/10/17 Prednisone (Prednisone) 20 Mg Tab 20 MG PO BID for 5 Days, #10 TAB 0 Refills Prov: Ehsan Graff MD 04/06/17 Disposition: 01 DISCHARGE HOME Condition: Silver Crouch Apr 06, 2017 20:02
[2017-04-06] MEDS ORDERED: AZIT250T3 PO (20:51)
[2017-04-06] MEDS ORDERED: PRED20 PO (20:51)
--- NOTE | 2017-04-07 12:20 | EKG ---
Date Performed: 04/06/2017 Time Performed: 19:22:33 PTAGE: 71 years EKG: Sinus bradycardia with sinus arrhythmia Nonspecific T-wave changes Possible inferior myocar dial infarction Cannot rule out anterior myocardial infarction of indeterminate age ABNORMAL ECG PREVIOUS TRACING : 01/24/2017 20.37 Since the previous tracing, there is a rhythm change from a trial fibrillation to sinus bradycardia with sinus arrhythmia. DOCTOR: Alfred Torres Interpretating Date/Time 04/07/2017 12:19:06
== END 2017-04-06 21:30 | disposition home or self-care (01) ==
LOC: NEPE 18:31
DX: J44.1 Chronic obstructive pulmonary disease with (acute) exacerbation (principal); I51.7 Cardiomegaly; R00.1 Bradycardia, unspecified; R94.31 Abnormal electrocardiogram [ECG] [EKG]; I11.0 Hypertensive heart disease with heart failure; I50.9 Heart failure, unspecified; I48.91 Unspecified atrial fibrillation; E11.9 Type 2 diabetes mellitus without complications; I25.10 Atherosclerotic heart disease of native coronary artery without angina pectoris
CPT/HCPCS: 71010; 80048; 83880; 85025; 93005; 94640; 94664; 96374; 99285; J2930

== ENCOUNTER 2017-04-09 13:11 | Inpatient (IN) | payer MEDICARE, BC ==
[~2017-04-09] VITALS: Ht 177.8 cm; Wt 87.1 kg
[~2017-04-09 13:11] MED LIST changes: +AMIO200T PO; +AZIT250T3 PO; +CLOP75TA PO; +KLOR20TA3 PO; +ROSU1TAB8 PO
[2017-04-09 13:13] VITALS: BP 168/73; PULSE 55; RESP 28; TEMP 97.7; O2SAT 96
[2017-04-09 14:06] LABS: AUTOMATED NEUTROPHIL # 11.7 TH/MM3 (1.8-7.7); BASOPHIL % 0.1 % (0.0-2.0); HEMO FLAGS DIFF FINAL; LYMPH % 3.8 % (9.0-44.0); LYMPHOCYTE # 0.5 TH/MM3 (1.0-4.8); MEAN CELL VOLUME 95.4 FL (80.0-100.0); MEAN CORPUSCULAR HEMOGLOBIN 31.4 PG (27.0-34.0); MEAN CORPUSCULAR HGB CONC 32.9 % (32.0-36.0); NEUT % 90.1 % (16.0-70.0); PLATELET COUNT 240 TH/MM3 (150-450); RED CELL DISTRIBUTION WIDTH 13.8 % (11.6-17.2)
[2017-04-09 14:12] VITALS: BP 167/79; PULSE 55; RESP 18; O2SAT 98
[2017-04-09 14:14] LABS: APTT (PATIENT) 27.3 SEC (24.3-30.1); INTERNATIONAL NORMALIZED RATIO 1.1 RATIO; PROTHROMBIN TIME - PATIENT 12.2 SEC (9.8-11.6)
--- NOTE | 2017-04-09 14:43 | RADRPT ---
EXAM DATE/TIME: 04/09/2017 14:24 [facility] COMPARISON: CHEST SINGLE AP, April 06, 2017, 19:18. CHEST PA & LAT, July 14, 2016, 17:35. INDICATIONS : Patient states chest pains. MEDICAL HISTORY : Diabetes mellitus type II. Hypertension Hypercholesterolemia. Asthma SURGICAL HISTORY : None. ENCOUNTER: Initial ACUITY: 1 day PAIN SCORE: 9/10 LOCATION: Bilateral chest FINDINGS: PA and lateral views of the chest showing new nodular parenchymal consolidation involving the left la teral midlung. The right lung is clear. No effusions. Heart is mildly enlarged but stable. A degenera tive and scoliotic spine. CONCLUSION: New nodular parenchymal consolidation involving the left lung. Infectious etiology is suspected. Foll ow up studies to document resolution are needed. Maxwell Stringer Jr., MD on April 09, 2017 at 14:40 Board Certified Radiologist. This report was verified electronically.
[2017-04-09 15:02] LABS: BLOOD UREA NITROGEN 36 MG/DL (7-18); GLOMERULAR FILTRATION RATE 51 ML/MIN (>89); MAGNESIUM 2.6 MG/DL (1.5-2.5); POTASSIUM 4.3 MEQ/L (3.5-5.1); SODIUM (NA) 137 MEQ/L (136-145)
[2017-04-09 15:03] LABS: ANION GAP 7 MEQ/L (5-15); CHLORIDE 103 MEQ/L (98-107); CREATINE KINASE 136 U/L (39-308)
[2017-04-09 15:04] LABS: CKMB 2.3 NG/ML (0.5-3.6)
[2017-04-09] MEDS ORDERED: AZITHROMYCIN INJ 500 MG in SODIUM CHLOR 0.9% 250 ML INJ 250 ML IV ONE (15:15)
[2017-04-09] MEDS ORDERED: SODIUM CHLORIDE 0.9% FLUSH 10 ML FLUSH IVF PRN (15:15)
[2017-04-09] MEDS ORDERED: cefTRIAXone INJ 1,000 MG in SODIUM CHLORIDE 0.9% INJ 100 ML IV ONE (15:15)
[2017-04-09] MEDS ORDERED: IPRASOL INH (15:23)
--- NOTE | 2017-04-09 15:29 | PD ---
HPI Chief Complaint: Respiratory Symptoms Time Seen by Provider: 15:04 Travel History International Travel<30 days: No Contact w/Intl Traveler<30days: No Traveled to known affect area: No History of Present Illness HPI 71-year-old male presents to the emergency department with a past medical history of coronary artery disease, prior myocardial infarction, previous stents , chronic A. fib, CHF, HIT, hypertension, DM II for worsening shortness of breath. Patient was seen here in the emergency department 3 days ago. He was having a COPD exacerbation at that time. He was discharged prescription for azithromycin and prednisone. However, he did not fill the azithromycin, but hasn't taken the prednisone. However, his symptoms have been worsening. Reports extreme shortness of breath with minimal walking. He has been using nebulizers at home with little improvement. He denies any fevers or chills. He denies chest pain. No abdominal pain. No nausea, vomiting, diarrhea. Severity is moderate. No alleviating symptoms. Activity exacerbates symptoms. No leg edema, no hemoptysis. No recent surgery or travel. No history DVT or PE. PFSH Past Medical History Hx Anticoagulant Therapy: Yes Atrial Fibrillation: Yes Heart Rhythm Problems: Yes (AFIB) Cancer: No Cardiovascular Problems: Yes (CAD, [place] WITH STENT) High Cholesterol: Yes Congestive Heart Failure: Yes COPD: Yes Coronary Artery Disease: Yes Diabetes: Yes Endocrine: No Genitourinary: No Heparin Induced Thrombocytopen: Yes Hypertension: Yes Immune Disorder: No Implanted Vascular Access Dvce: No Musculoskeletal: No Neurologic: No Psychiatric: No Reproductive: No Respiratory: Yes (COPD) Myocardial Infarction: Yes (x 4 (recent 10/01/10)) PNEUMOCCOCAL Vaccine (Year): 2 Past Surgical History Cardiac Surgery: Yes (MULTIPLE STENTS 10/01/10) Coronary Stent: Yes (5 STENTS) Other Surgery: Yes (INGUINAL HERNIA REPAIR ) Social History Alcohol Use: No Tobacco Use: No Substance Use: No Allergies-Medications (Allergen,Severity, Reaction): Coded Allergies: enoxaparin (Verified Allergy, Severe, THROMBOCYTOPENIA, 04/09/17) heparin (porcine) (Verified Allergy, Severe, THROMBOCYTOPENIA, 04/09/17) hydrochlorothiazide (Verified Allergy, Mild, 04/09/17) RASH Reported Meds & Prescriptions Reported Meds & Active Scripts Active Prednisone 20 Mg Tab 20 Mg PO BID 5 Days Reported Duoneb (Ipratropium-Albuterol Neb) 0.5-2.5 Mg/3 Ml Neb 1 Nebule INH DAILY Klor-Con M20 (Potassium Chloride Microencaps) 20 Meq Tab 20 Meq PO DAILY Rosuvastatin (Rosuvastatin Calcium) 20 Mg Tab 20 Mg PO DAILY Clopidogrel (Clopidogrel Bisulfate) 75 Mg Tab 75 Mg PO DAILY Amiodarone (Amiodarone HCl) 200 Mg Tab 200 Mg PO DAILY Eliquis (Apixaban) 5 Mg Tab 5 Mg PO BID Aspir-81 (Aspirin) 81 Mg Tabdr 81 Mg PO HS Lasix (Furosemide) 40 Mg Tab 40 Mg PO DAILY Paroxetine (Paroxetine HCl) 10 Mg Tab 10 Mg PO DAILY Metoprolol Tartrate 100 Mg Tab 100 Mg PO BID Entresto (Sacubitril-Valsartan) 97-103 Mg Tab 1 Tab PO BID Proair Hfa 8.5 GM Inh (Albuterol Sulfate) 90 Mcg/Act Aer 2 Puff INH QID PRN 108 mcg/actuation Stiolto Respimat Inh (Tiotropium-Olodaterol Inh) 2.5-2.5 Mcg/Act Aero 2 Puff INH DAILY Glipizide 5 Mg Tab 5 Mg PO DAILY Take 30 minutes before a meal Review of Systems Except as stated in HPI: all other systems reviewed are Neg Physical Exam Narrative GENERAL: Well-nourished, well-developed male patient, afebrile. SKIN: Focused skin assessment warm/dry. HEAD: Normocephalic. Atraumatic. EYES: No scleral icterus. No injection or drainage. NECK: Supple, trachea midline. No JVD or lymphadenopathy. CARDIOVASCULAR: Regular rate and rhythm without murmurs, gallops, or rubs. Bilateral Radial and pedal pulses 2+. RESPIRATORY: Breath sounds equal bilaterally. No accessory muscle use. Lungs sounds with inspiratory and expiratory wheezes noted throughout. GASTROINTESTINAL: Abdomen soft, non-tender, nondistended. MUSCULOSKELETAL: No cyanosis, or edema. BACK: Nontender without obvious deformity. No CVA tenderness. Data Data Last Documented VS Vital Signs Date Time Temp Pulse Resp B/P (MAP) Pulse Ox O2 Delivery O2 Flow Rate FiO2 04/09/17 14:12 55 18 167/79 (108) 98 Room Air 04/09/17 13:13 97.7 Orders Orders Electrocardiogram (04/09/17 13:43) Basic Metabolic Panel (Bmp) (04/09/17 13:43) B-Type Natriuretic Peptide (04/09/17 13:43) Ckmb (Isoenzyme) Profile (04/09/17 13:43) Complete Blood Count With Diff (04/09/17 13:43) Magnesium (Mg) (04/09/17 13:43) Prothrombin Time / Inr (Pt) (04/09/17 13:43) Act Partial Throm Time (Ptt) (04/09/17 13:43) Troponin I (04/09/17 13:43) Chest, Pa & Lat (04/09/17 13:43) CKMB (04/09/17 13:53) CKMB% (04/09/17 13:53) Blood Culture (04/09/17 15:11) Lactic Acid Sepsis Protocol (04/09/17 15:11) Sodium Chloride 0.9% Flush (Ns Flush) (04/09/17 15:15) Ceftriaxone Inj (Rocephin Inj) (04/09/17 15:15) Azithromycin Inj (Zithromax Inj) (04/09/17 15:15) Methylprednisolone So Succ Inj (Solumedr (04/09/17 15:30) Albuterol-Ipratropium Neb (Duoneb Neb) (04/09/17 15:30) Labs Laboratory Tests Test 04/09/17 13:53 White Blood Count 13.0 TH/MM3 Red Blood Count 4.40 MIL/MM3 Hemoglobin 13.8 GM/DL Hematocrit 42.0 % Mean Corpuscular Volume 95.4 FL Mean Corpuscular Hemoglobin 31.4 PG Mean Corpuscular Hemoglobin Concent 32.9 % Red Cell Distribution Width 13.8 % Platelet Count 240 TH/MM3 Mean Platelet Volume 8.9 FL Neutrophils (%) (Auto) 90.1 % Lymphocytes (%) (Auto) 3.8 % Monocytes (%) (Auto) 6.0 % Eosinophils (%) (Auto) 0.0 % Basophils (%) (Auto) 0.1 % Neutrophils # (Auto) 11.7 TH/MM3 Lymphocytes # (Auto) 0.5 TH/MM3 Monocytes # (Auto) 0.8 TH/MM3 Eosinophils # (Auto) 0.0 TH/MM3 Basophils # (Auto) 0.0 TH/MM3 CBC Comment DIFF FINAL Differential Comment Prothrombin Time 12.2 SEC Prothromb Time International Ratio 1.1 RATIO Activated Partial Thromboplast Time 27.3 SEC Blood Urea Nitrogen 36 MG/DL Creatinine 1.38 MG/DL Random Glucose 155 MG/DL Calcium Level 8.8 MG/DL Magnesium Level 2.6 MG/DL Sodium Level 137 MEQ/L Potassium Level 4.3 MEQ/L Chloride Level 103 MEQ/L Carbon Dioxide Level 27.0 MEQ/L Anion Gap 7 MEQ/L Estimat Glomerular Filtration Rate 51 ML/MIN Total Creatine Kinase 136 U/L Creatine Kinase MB 2.3 NG/ML Troponin I 0.05 NG/ML B-Type Natriuretic Peptide 647 PG/ML MDM Medical Decision Making Medical Screen Exam Complete: Yes Emergency Medical Condition: Yes Medical Record Reviewed: Yes Interpretation(s) Last Impressions Chest X-Ray 04/09/17 1343 Signed Impressions: Service Date/Time: Sunday, April 09, 2017 14:24 - CONCLUSION: New nodular parenchymal consolidation involving the left lung. Infectious etiology is suspected. Follow up studies to document resolution are needed. Maxwell Stringer Jr., MD Differential Diagnosis Pneumonia versus COPD exacerbation versus CHF Narrative Course 71-year-old male presents to the emergency department for reevaluation worsening shortness of breath with COPD. Patient is using nebulizers continue prednisone at home with no prevent. He is not currently on antibiotic. EKG shows atrial fibrillation with slow ventricular response, heart rate 51. CBC shows leukocytosis 13.0, neutrophil percentage 90.1. BMP shows BUN 36, currently 1.38, glucose 155. Magnesium is 2.6. CK is 136. Troponin is 0.05. BNP is 647. Coags no acute abnormality. Chest x-ray shows new nodular parenchymal consolidation involving the left lung, infectious etiology suspected. Blood cultures 2 and lactic acid are ordered and pending. Patient is given DuoNeb 3, solumedrol 125 mg IV. Patient is started on azithromycin 500 mg IV, Rocephin 1 g IV. [facility] is paged for admission. Patient's is concerned that patient can get owners at night and would like him not to be restrained if possible. I told her I would pass this message along. Dr. Ashby accepted admission. Sepsis Criteria SIRS Criteria (2 or more): WBC > 88656, < 4000 or > 10% bands Diagnosis Primary Impression: Pneumonia Qualified Codes: J18.9 - Pneumonia, unspecified organism Additional Impression: COPD with acute exacerbation Admitting Information Admitting Physician Requests: Observation Charis Figueroa Apr 09, 2017 15:29
[2017-04-09] MEDS ORDERED: methylPREDNISolone SOD SUCC 125 MG/2 ML VIAL IV PUSH ONE (15:30)
[2017-04-09] MEDS: RESP: ALBUTEROL 2.5 MG/IPRATROPIUM 0.5 MG NEB (SCH) INH (15:49)
[2017-04-09] MEDS ORDERED: NALOXONE HCL 0.4 MG/ML AMP IV PUSH PRN (16:00)
[2017-04-09 16:08] VITALS: BP 172/72; PULSE 49; RESP 22; O2SAT 100
[2017-04-09 17:29] VITALS: BP 160/75; PULSE 67; RESP 24; TEMP 97.7; O2SAT 96
[2017-04-09 17:43] LABS: LACTIC ACID GHOST NOT REPORTABLE
--- NOTE | 2017-04-09 19:03 | HHI.HP ---
HPI Service [facility] Primary Care Physician Yusef Harrell, DO Admission Diagnosis pneumonia, COPD exacerbation Diagnoses: Travel History International Travel<30 Days: No Contact w/Intl Traveler <30 Da: No Traveled to Known Affected Are: No History of Present Illness hx from patient, ER communication and review of records poor historian stated he came because it was convenient place here and liked it when asked of dyspnea, stated yes coughing for 4 yrs off and on not sure of fever- think he had an accident denies other symptoms said he think he fell down did not pay attention to it - not horrendous he said, no bumps is not at bedside truly, pt is poor historian, cant obtain any meaningful history, stated he has alzeimers per ER report, patient was "seen here in the emergency department 3 days ago. He was having a COPD exacerbation at that time. He was discharged prescription for azithromycin and prednisone. However, he did not fill the azithromycin, but hasn't taken the prednisone. However, his symptoms have been worsening. Reports extreme shortness of breath with minimal walking. He has been using nebulizers at home with little improvement. He denies any fevers or chills. He denies chest pain. No abdominal pain. No nausea, vomiting, diarrhea. Severity is moderate. No alleviating symptoms. Activity exacerbates symptoms. No leg edema, no hemoptysis. No recent surgery or travel. No history DVT or PE. " was present in ER Review of Systems ROS Limitations: Altered Mental Status (dementia), Poor Historian Past Family Social History Past Medical History only remembers that he has Alzeimers per EMR: Hypertension Hyperlipidemia and COPD CHF June 2016, EF 50%. A. fib, CAD, hx MA DM II Hypothyroidism Alzheimer's HIT Past Surgical History Coronary angiogram and stenting Inguinal hernia repair Allergies: Coded Allergies: enoxaparin (Verified Allergy, Severe, THROMBOCYTOPENIA, 04/09/17) heparin (porcine) (Verified Allergy, Severe, THROMBOCYTOPENIA, 04/09/17) hydrochlorothiazide (Verified Allergy, Mild, 04/09/17) RASH Family History none that he knows of Social History used to smoke , quit long time ago - 1991 per him no etoh abuse or drug abuse lives with no longer driving Physical Exam Vital Signs Vital Signs Date Time Temp Pulse Resp B/P (MAP) Pulse Ox O2 Delivery O2 Flow Rate FiO2 04/09/17 17:29 97.7 67 24 160/75 (103) 96 04/09/17 17:10 04/09/17 17:09 97 Room Air 04/09/17 16:08 49 22 172/72 (105) 100 Aerosol Mask 04/09/17 14:12 55 18 167/79 (108) 98 Room Air 04/09/17 13:13 97.7 55 28 168/73 (104) 96 Physical Exam GENERAL: This is a elderly gentleman, looks confused, states he rather goes to sleep. In no apparent distress. SKIN: No rashes, ecchymoses or lesions. Cool and dry. HEAD: Atraumatic. Normocephalic. No temporal or scalp tenderness. EYES: No scleral icterus. No injection or drainage. ENT: Nose without bleeding, purulent drainage or septal hematoma Airway patent. NECK: Trachea midline. No JVD CARDIOVASCULAR: Regular rate and rhythm without murmurs, gallops, or rubs. RESPIRATORY: Bilateral expiratory wheezing GASTROINTESTINAL: Abdomen soft, non-tender, nondistended. No guarding. MUSCULOSKELETAL: Extremities without clubbing, cyanosis, or edema. No calf tenderness. NEUROLOGICAL: Awake and alert. Motor and sensory grossly within normal limits. Normal speech. Laboratory Laboratory Tests Test 04/09/17 13:53 04/09/17 15:28 White Blood Count 13.0 Red Blood Count 4.40 Hemoglobin 13.8 Hematocrit 42.0 Mean Corpuscular Volume 95.4 Mean Corpuscular Hemoglobin 31.4 Mean Corpuscular Hemoglobin Concent 32.9 Red Cell Distribution Width 13.8 Platelet Count 240 Mean Platelet Volume 8.9 Neutrophils (%) (Auto) 90.1 Lymphocytes (%) (Auto) 3.8 Monocytes (%) (Auto) 6.0 Eosinophils (%) (Auto) 0.0 Basophils (%) (Auto) 0.1 Neutrophils # (Auto) 11.7 Lymphocytes # (Auto) 0.5 Monocytes # (Auto) 0.8 Eosinophils # (Auto) 0.0 Basophils # (Auto) 0.0 CBC Comment DIFF FINAL Differential Comment Prothrombin Time 12.2 Prothromb Time International Ratio 1.1 Activated Partial Thromboplast Time 27.3 Blood Urea Nitrogen 36 Creatinine 1.38 Random Glucose 155 Calcium Level 8.8 Magnesium Level 2.6 Sodium Level 137 Potassium Level 4.3 Chloride Level 103 Carbon Dioxide Level 27.0 Anion Gap 7 Estimat Glomerular Filtration Rate 51 Total Creatine Kinase 136 Creatine Kinase MB 2.3 Troponin I 0.05 B-Type Natriuretic Peptide 647 Lactic Acid Level 3.1 Date/Time Source Procedure Growth Status 04/09/17 15:30 Blood Peripheral Aerobic Blood Culture Pending Received 04/09/17 15:30 Blood Peripheral Anaerobic Blood Culture Pending Received Result Diagram: 04/09/17 1353 04/09/17 1353 Imaging Last 48 hours Impressions Chest X-Ray 04/09/17 1343 Signed Impressions: Service Date/Time: Sunday, April 09, 2017 14:24 - CONCLUSION: New nodular parenchymal consolidation involving the left lung. Infectious etiology is suspected. Follow up studies to document resolution are needed. MD Melodie Mtz Jr. VTE Risk Assessment Caprini VTE Risk Assessment: Mod/High Risk (score >= 2) Caprini Risk Assessment Model Point Value = 1 Point Value = 2 Point Value = 3 Point Value = 5 Age 41-60 Minor surgery BMI > 25 kg/m2 Swollen legs Varicose veins or History of unexplained or recurrent spontaneous Oral contraceptives or hormone replacement Sepsis (< 1 month) Serious lung disease, including pneumonia (< 1 month) Abnormal pulmonary function Acute myocardial infarction Congestive heart failure (< 1 month) History of inflammatory bowel disease Medical patient at bed rest Age 61-74 Arthroscopic surgery Major open surgery (> 45 min) Laparoscopic surgery (> 45 min) Malignancy Confined to bed (> 72 hours) Immobilizing plaster cast Central venous access Age >= 75 History of VTE Family history of VTE Factor V Leiden Prothrombin [id number] Lupus anticoagulant Anticardiolipin antibodies Elevated serum homocysteine Heparin-induced thrombocytopenia Other congenital or acquired thrombophilia Stroke (< 1 month) Elective arthroplasty Hip, pelvis, or leg fracture Acute spinal cord injury (< 1 month) Prophylaxis Regimen Total Risk Factor Score Risk Level Prophylaxis Regimen 0-1 Low Early ambulation 2 Moderate Order ONE of the following: *Sequential Compression Device (SCD) *Heparin 5000 units SQ BID 3-4 Higher Order ONE of the following medications: *Heparin 5000 units SQ TID *Enoxaparin/Lovenox 40 mg SQ daily (WT < 150 kg, CrCl > 30 mL/min) *Enoxaparin/Lovenox 30 mg SQ daily (WT < 150 kg, CrCl > 10-29 mL/min) *Enoxaparin/Lovenox 30 mg SQ BID (WT < 150 kg, CrCl > 30 mL/min) AND/OR *Sequential Compression Device (SCD) 5 or more Highest Order ONE of the following medications: *Heparin 5000 units SQ TID (Preferred with Epidurals) *Enoxaparin/Lovenox 40 mg SQ daily (WT < 150 kg, CrCl > 30 mL/min) *Enoxaparin/Lovenox 30 mg SQ daily (WT < 150 kg, CrCl > 10-29 mL/min) *Enoxaparin/Lovenox 30 mg SQ BID (WT < 150 kg, CrCl > 30 mL/min) AND *Sequential Compression Device (SCD) Assessment and Plan Assessment and Plan Impression: COPD exacerbation Pneumonia community-acquired, unilateral. Hypertension Hyperlipidemia and COPD CHF June 2016, EF 50%. A. fib, CAD, hx MA DM II Hypothyroidism Alzheimer's HIT Plan: Nebulizers scheduled and when necessary. Patient received Rocephin and azithromycin in ER. For now will continue same. Resume steroids tapering dose as patient is still having wheezing. Resume home medications. no restraint unless agrees fall risk on anticoagulation at home bed alarm on Nurse and informed. DVT prophylaxis with Eliquis GI prophylaxis on ranitidine Discussed Condition With patient, ER [employer], nursing staff Jess Ashby MD Apr 09, 2017 19:03
[2017-04-09 20:08] VITALS: PULSE 65
[2017-04-09 21:26] VITALS: BP 134/88; PULSE 67; RESP 18; TEMP 98.1; O2SAT 92
[2017-04-09] MEDS ORDERED: PILL SPLITTER OTHER PRN (21:45)
[2017-04-09] MEDS: RESP: ALBUTEROL 2.5 MG/IPRATROPIUM 0.5 MG NEB (SCH) NEB (22:00)
[2017-04-09] MEDS: SODIUM CHLORIDE 0.9% FLUSH 10 ML FLUSH IV FLUSH SCH (22:57)
[2017-04-09] MEDS: SACUBITRIL/VALSARTAN 97 MG-103 MG TAB PO SCH (22:58)
[2017-04-09] MEDS: predniSONE 20 MG TAB PO SCH (22:58)
[2017-04-09] MEDS: ASPIRIN EC 81 MG TABEC PO SCH (22:58)
[2017-04-09] MEDS: METOPROLOL TARTRATE 100 MG TAB PO SCH (22:58)
[2017-04-09] MEDS: APIXABAN 5 MG TABLET PO SCH (22:59)
[2017-04-10] VITALS (10 sets, daily range): BP systolic 135–159; BP diastolic 69–81; PULSE 55–66; RESP 18–26; TEMP 97.6–98.9; O2SAT 91–96
[2017-04-10] MEDS: RESP: ALBUTEROL 2.5 MG/IPRATROPIUM 0.5 MG NEB (SCH) NEB ×4 (03:33→22:36)
[2017-04-10] MEDS ORDERED: LACTULOSE SYRUP 20 GM/30 ML CUP PO PRN (05:30)
[2017-04-10] MEDS ORDERED: SENNOSIDES 8.6 MG TAB PO PRN (05:30)
[2017-04-10] MEDS ORDERED: ONDANSETRON HCL 4 MG/2 ML VIAL IVP PRN (05:30)
[2017-04-10] MEDS ORDERED: NALOXONE HCL 0.4 MG/ML AMP IV PUSH PRN (05:30)
[2017-04-10] MEDS ORDERED: DEXTROSE 50% IN WATER 50 ML VIAL(D50) IV PUSH PRN (05:30)
[2017-04-10] MEDS ORDERED: ACETAMINOPHEN 325 MG TAB PO PRN ×2 (05:30)
[2017-04-10] MEDS ORDERED: BISACODYL 10 MG SUPP RECTAL PRN (05:30)
[2017-04-10] MEDS ORDERED: GLUCAGON 1 MG/ML VIAL OTHER PRN (05:30)
[2017-04-10 07:12] LABS: AUTOMATED NEUTROPHIL # 7.3 TH/MM3 (1.8-7.7); BASOPHIL % 0.1 % (0.0-2.0); HEMATOCRIT 38.5 % (39.0-51.0); HEMO FLAGS DIFF FINAL; LYMPHOCYTE # 0.3 TH/MM3 (1.0-4.8); MEAN CELL VOLUME 95.3 FL (80.0-100.0); MEAN CORPUSCULAR HEMOGLOBIN 31.8 PG (27.0-34.0); MEAN CORPUSCULAR HGB CONC 33.4 % (32.0-36.0); MONO % 3.8 % (0.0-8.0); NEUT % 92.1 % (16.0-70.0); PLATELET COUNT 192 TH/MM3 (150-450); RED BLOOD COUNT 4.03 MIL/MM3 (4.50-5.90); RED CELL DISTRIBUTION WIDTH 13.6 % (11.6-17.2)
[2017-04-10 07:38] LABS: BICARBONATE 26.8 MEQ/L (21.0-32.0); POTASSIUM 4.2 MEQ/L (3.5-5.1)
[2017-04-10] MEDS: INSULIN ASPART SUPPLEMENTAL SCALE SQ SCH ×4 (08:00→21:46)
[2017-04-10] MEDS ORDERED: [UNRECOGNIZED DRUG - OTHER] INH SCH (09:00)
[2017-04-10] MEDS: CLOPIDOGREL 75 MG TAB PO SCH (10:44)
[2017-04-10] MEDS: METOPROLOL TARTRATE 100 MG TAB PO SCH ×2 (10:44→21:29)
[2017-04-10] MEDS: POTASSIUM CHLORIDE 20 MEQ CONTROLLED RELEASE TAB PO SCH (10:45)
[2017-04-10] MEDS: FUROSEMIDE 40 MG TAB PO SCH (10:45)
[2017-04-10] MEDS: APIXABAN 5 MG TABLET PO SCH ×2 (10:45→21:29)
[2017-04-10] MEDS: DOCUSATE SODIUM 50 MG/SENNA 8.6 MG TAB PO SCH ×2 (10:47→21:00)
[2017-04-10] MEDS: PARoxetine HCL 20 MG TAB PO SCH (10:47)
[2017-04-10] MEDS: glipiZIDE 5 MG TAB PO SCH (10:47)
[2017-04-10] MEDS: SACUBITRIL/VALSARTAN 97 MG-103 MG TAB PO SCH ×2 (10:47→21:28)
[2017-04-10] MEDS: predniSONE 20 MG TAB PO SCH ×2 (10:48→21:28)
[2017-04-10] MEDS: AMIODARONE 200 MG TAB PO SCH (10:48)
[2017-04-10] MEDS: SODIUM CHLORIDE 0.9% FLUSH 10 ML FLUSH IV FLUSH SCH ×2 (10:48→21:29)
[2017-04-10] MEDS: ATORVASTATIN 40 MG TAB PO SCH (10:49)
--- NOTE | 2017-04-10 12:35 | HHI.PR ---
Subjective Remarks Follow-up pneumonia. Patient has no complaints denies chest pain, shortness of breath and cough. He has history of dementia. Discussed with RN, blood cultures positive for gram-positive cocci Objective Vitals Vital Signs Date Time Temp Pulse Resp B/P (MAP) Pulse Ox O2 Delivery O2 Flow Rate FiO2 04/10/17 11:36 98.2 61 22 152/73 (99) 93 04/10/17 08:40 97.6 64 22 159/76 (103) 91 04/10/17 07:22 95 21 04/10/17 04:06 55 04/10/17 03:35 21 04/10/17 00:24 98.9 63 18 141/70 (93) 94 04/10/17 00:03 61 04/09/17 21:26 98.1 67 18 134/88 (103) 92 04/09/17 20:08 65 04/09/17 17:29 97.7 67 24 160/75 (103) 96 04/09/17 17:10 04/09/17 17:09 97 Room Air 04/09/17 16:08 49 22 172/72 (105) 100 Aerosol Mask 04/09/17 14:12 55 18 167/79 (108) 98 Room Air 04/09/17 13:13 97.7 55 28 168/73 (104) 96 I/O 04/09/17 04/09/17 04/09/17 04/10/17 04/10/17 04/10/17 07:00 15:00 23:00 07:00 15:00 23:00 Intake Total 100 ml Balance 100 ml Intake IV Total 100 ml # Voids 1 Result Diagram: 04/10/17 0653 04/10/17 0653 Imaging Last Impressions Chest X-Ray 04/09/17 1343 Signed Impressions: Service Date/Time: Sunday, April 09, 2017 14:24 - CONCLUSION: New nodular parenchymal consolidation involving the left lung. Infectious etiology is suspected. Follow up studies to document resolution are needed. Maxwell Stringer Jr., MD Objective Remarks GENERAL: Well-developed and well-nourished in no distress SKIN: Warm and dry. Rosacea bilateral cheeks HEAD: Atraumatic. Normocephalic. EYES: Pupils equal and round. No scleral icterus. No injection or drainage. ENT: No nasal bleeding or discharge. Mucous membranes pink and moist. NECK: Trachea midline. No JVD. CARDIOVASCULAR: Regular rate and rhythm. RESPIRATORY: No accessory muscle use. Clear to auscultation. Breath sounds equal bilaterally. GASTROINTESTINAL: Abdomen soft, non-tender, nondistended. MUSCULOSKELETAL: Extremities without clubbing, cyanosis, or edema. No obvious deformities. NEUROLOGICAL: Awake and alert. No obvious cranial nerve deficits. Motor grossly within normal limits. Five out of 5 muscle strength in the arms and legs. Normal speech. PSYCHIATRIC: Appropriate mood and affect; insight and judgment normal. A/P Problem List: (1) Pneumonia ICD Code: J18.9 - Pneumonia, unspecified organism Status: Acute (2) COPD with acute exacerbation ICD Code: J44.1 - Chronic obstructive pulmonary disease with (acute) exacerbation Status: Acute Assessment and Plan COPD exacerbation secondary to pneumonia. Stable continue oxygen, nebulizations , Rocephin and Zithromax. Obtain influenza, pneumococcal and Legionella urinary antigen. Severe sepsis. Gram-positive cocci in blood culture. Follow up Troponin bump. Denies chest pain. EKG and change. This is secondary to above and chronic kidney disease. Spect negative in 06/2016 Chronic kidney disease stage III. Improving Chronic medical conditions of dementia, CHF with ejection fraction 50%, A. fib, coronary artery disease status post [place], diabetes mellitus and hypothyroidism. DVT prophylaxis with Eliquis Clarify CODE STATUS Problem Qualifiers (1) Pneumonia: Qualified Codes: J18.9 - Pneumonia, unspecified organism Butch Ramírez MD Apr 10, 2017 12:35
--- NOTE | 2017-04-10 14:07 | EKG ---
Date Performed: 04/10/2017 Time Performed: 02:53:15 PTAGE: 71 years EKG: Sinus rhythm LOW QRS VOLTAGE IN PRECORDIAL LEADS ANTERIOR MYOCARDIAL INFARCTION PROBABLE INFERIOR MYOCARDIAL INFA RCTION ABNORMAL ECG PREVIOUS TRACING : 04/09/2017 21.51 Compared to prior tracing no significant change DOCTOR: Adolfo Kamara Interpretating Date/Time 04/10/2017 14:03:55
--- NOTE | 2017-04-10 14:13 | EKG ---
Date Performed: 04/09/2017 Time Performed: 21:51:08 PTAGE: 71 years EKG: Sinus rhythm LOW QRS VOLTAGE IN PRECORDIAL LEADS ANTEROLATERAL MYOCARDIAL INFARCTION PREVIOUS TRACING : 04/09/2017 14.12 Compared to prior tracing no significant change DOCTOR: Adolfo Kamara Interpretating Date/Time 04/10/2017 14:08:47
--- NOTE | 2017-04-10 14:29 | EKG ---
Date Performed: 04/09/2017 Time Performed: 14:12:50 PTAGE: 71 years EKG: Sinus rhythm WITH PREMATURE ATRIAL COMPLEXES LOW QRS VOLTAGE IN PRECORDIAL LEADS POSSIBLE ANTERIOR MYOCARDIAL INF ARCTION POSSIBLE INFERIOR MYOCARDIAL INFARCTION ABNORMAL RHYTHM ECG PREVIOUS TRACING : 04/06/2017 19.22 Compared to prior tracing no significant change DOCTOR: Adolfo Kamara Interpretating Date/Time 04/10/2017 14:22:21
[2017-04-10] MEDS: AZITHROMYCIN INJ 500 MG in SODIUM CHLOR 0.9% 250 ML INJ 250 ML IV SCH (17:35)
[2017-04-10] MEDS: cefTRIAXone INJ 1,000 MG in SODIUM CHLORIDE 0.9% INJ 100 ML IV SCH (18:39)
[2017-04-10] MEDS: RESP: ALBUTEROL 2.5 MG/IPRATROPIUM 0.5 MG NEB (PRN) NEB (19:23)
[2017-04-10] MEDS: FAMOTIDINE 20 MG TAB PO SCH (21:28)
[2017-04-10] MEDS: ASPIRIN EC 81 MG TABEC PO SCH (21:28)
[2017-04-11] VITALS (11 sets, daily range): BP systolic 142–189; BP diastolic 73–86; PULSE 56–68; RESP 22–28; TEMP 96.6–98.5; O2SAT 93–99
[2017-04-11] MEDS: RESP: ALBUTEROL 2.5 MG/IPRATROPIUM 0.5 MG NEB (SCH) NEB ×4 (03:17→20:43)
[2017-04-11] MEDS: SACUBITRIL/VALSARTAN 97 MG-103 MG TAB PO SCH ×2 (07:57→22:07)
[2017-04-11] MEDS: METOPROLOL TARTRATE 100 MG TAB PO SCH ×2 (07:57→22:08)
[2017-04-11] MEDS: DOCUSATE SODIUM 50 MG/SENNA 8.6 MG TAB PO SCH ×2 (07:57→22:08)
[2017-04-11] MEDS: CLOPIDOGREL 75 MG TAB PO SCH (07:57)
[2017-04-11] MEDS: FAMOTIDINE 20 MG TAB PO SCH ×2 (07:57→22:08)
[2017-04-11] MEDS: AMIODARONE 200 MG TAB PO SCH (07:57)
[2017-04-11] MEDS: glipiZIDE 5 MG TAB PO SCH (07:58)
[2017-04-11] MEDS: predniSONE 20 MG TAB PO SCH (07:58)
[2017-04-11] MEDS: ATORVASTATIN 40 MG TAB PO SCH (07:58)
[2017-04-11] MEDS: FUROSEMIDE 40 MG TAB PO SCH (07:59)
[2017-04-11] MEDS: PARoxetine HCL 20 MG TAB PO SCH (07:59)
[2017-04-11] MEDS: POTASSIUM CHLORIDE 20 MEQ CONTROLLED RELEASE TAB PO SCH (07:59)
[2017-04-11] MEDS: INSULIN ASPART SUPPLEMENTAL SCALE SQ SCH ×4 (08:00→22:09)
[2017-04-11] MEDS: SODIUM CHLORIDE 0.9% FLUSH 10 ML FLUSH IV FLUSH SCH ×2 (08:01→22:09)
[2017-04-11] MEDS: APIXABAN 5 MG TABLET PO SCH ×2 (08:01→22:08)
--- NOTE | 2017-04-11 13:03 | PD.PSY.CON ---
Provisional Diagnosis Admission Date Apr 10, 2017 at 11:34 Graford I. Unspecified psychosis vs delirium Graford II. deferred Graford III. COPD, HTN, CAD, CHF Graford IV. Multiple chronic medical conditions Graford V. 55 History of Present Illness Service Psychiatry Consult Requested By Dr. Zuniga Reason for Consult Psychosis Primary Care Physician DO MELODY Nair The patient is a 71-year-old man, domiciled with in [place], retired, without any previous psychiatric history, no previous suicidal attempts , no previous psychiatric hospitalizations, no history of substance abuse,with a past medical history of coronary artery disease, prior myocardial infarction, previous stents, chronic A. fib, CHF, HIT, hypertension, DM II, who presents to the emergency department for worsening shortness of breath. Patient was sen in the emergency department 3 days ago. He was having a COPD exacerbation at that time. He was discharged prescription for azithromycin and prednisone. However, he did not fill the azithromycin, but hasn't taken the prednisone. However, his symptoms have been worsening. Initially in the ER he Reports extreme shortness of breath with minimal walking. He has been using nebulizers at home with little improvement. He denies any fevers or chills. He denies chest pain. No abdominal pain. No nausea, vomiting, diarrhea. Severity is moderate. No alleviating symptoms. Activity exacerbates symptoms. No leg edema, no hemoptysis. No recent surgery or travel. No history DVT or PE. QTc 417. Patient is consulted to psychiatry due to increased level of confusion and disorganized speech and behavior. Documentation was reviewed. Patient discussed with nursing charge. Collateral information from his obtained. Nurse in charge says that the patient has been talkative and self calming having active visual hallucinations, no making sense. On psychiatric evaluation patient is found in his bed, patient is irritable, superficially cooperative. Patient says that he feels okay. He says that his sister brought me here for no reason. He is described sister is actually his . Patient doesn't know the reason of his hospitalization. 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 He reports good mood, he denies depressive symptoms, he denies anhedonia, denies hopelessness, denies hepatitis, he describes his mood as okay. He denies suicidal and homicidal ideation, he denies visual and auditory hallucinations. Patient is even disoriented in person. Disoriented in time and place. Unable to provide any meaningful information for the psychiatric assessment, with feels up questions with confabulations. Sheila Sanchez, : She clarifies that this is the first time she sees the patient so confused. She says that in the last year patient's memory has been progressively worsening. About 2 months ago he took his car, he got lost, and he was found the police in [place]. Since then patient has been losing abilities slowly. He frequently forgets what he is talking, forget what he has done. 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 No episodes of marked agitation or aggressive behavior described. She clarifies that the patient does not have any previous psychiatric history, but his mother had bipolar disorder. Patient uses alcohol occasionally, usually one or 2 cups of wine no more than once a week. Review of Systems Constitutional: DENIES: Diaphoretic episodes, Fatigue, Fever, Weight gain, Weight loss, Chills, Dizziness, Change in appetite, Night Sweats Endocrine: DENIES: Heat/cold intolerance, Polydipsia, Polyuria, Polyphagia Eyes: DENIES: Blurred vision, Diplopia, Eye inflammation, Eye pain, Vision loss , Photosensitivity, Double Vision Ears, nose, mouth, throat: DENIES: Tinnitus, Hearing loss, Vertigo, Nasal discharge, Oral lesions, Throat pain, Hoarseness, Ear Pain, Running Nose, Epistaxis, Sinus Pain, Toothache, Odynophagia Respiratory: DENIES: Apneas, Cough, Snoring, Wheezing, Hemoptysis, Sputum production, Shortness of breath Cardiovascular: DENIES: Chest pain, Palpitations, Syncope, Dyspnea on Exertion , PND, Lower Extremity Edema, Orthopnea, Claudication Gastrointestinal: DENIES: Abdominal pain, Black stools, Bloody stools, Constipation, Diarrhea, Nausea, Vomiting, Difficulty Swallowing, Anorexia Genitourinary: DENIES: Sexual dysfunction, Urinary frequency, Urinary incontinence, Urgency, Hematuria, Dysuria, Nocturia, Penile Discharge, Testicular Pain, Testicular Swelling Musculoskeletal: DENIES: Joint pain, Muscle aches, Stiffness, Joint Swelling, Back pain, Neck pain Integumentary: DENIES: Abnormal pigmentation, Nail changes, Pruritus, Rash Hematologic/lymphatic: DENIES: Bruising, Lymphadenopathy Immunologic/allergic: DENIES: Eczema, Urticaria Neurologic: DENIES: Abnormal gait, Headache, Localized weakness, Paresthesias, Seizures, Speech Problems, Tremor, Poor Balance Psychiatric: DENIES: Anxiety, Confusion, Mood changes, Depression, Hallucinations, Agitation, Suicidal Ideation, Homicidal Ideation, Delusions Past Family Social History Coded Allergies: enoxaparin (Verified Allergy, Severe, THROMBOCYTOPENIA, 04/09/17) heparin (porcine) (Verified Allergy, Severe, THROMBOCYTOPENIA, 04/09/17) hydrochlorothiazide (Verified Allergy, Mild, 04/09/17) RASH Active Scripts Prednisone (Prednisone) 20 Mg Tab, 20 MG PO BID for 5 Days, #10 TAB 0 Refills Prov:Ehsan Graff MD 04/06/17 Reported Medications Ipratropium-Albuterol Neb (Duoneb) 0.5-2.5 Mg/3 Ml Neb, 1 NEBULE INH DAILY for Breathing Treatment, #30 NEBULE 0 Refills 04/09/17 Potassium Chloride Microencaps (Klor-Con M20) 20 Meq Tab, 20 MEQ PO DAILY for Electrolyte Replacement, #30 TAB 0 Refills 04/06/17 Rosuvastatin (Rosuvastatin) 20 Mg Tab, 20 MG PO DAILY for Cholesterol Management , #30 TAB 0 Refills 04/06/17 Clopidogrel (Clopidogrel) 75 Mg Tab, 75 MG PO DAILY for Blood Clot Prevention, # 30 TAB 0 Refills 04/06/17 Amiodarone (Amiodarone) 200 Mg Tab, 200 MG PO DAILY for Regulate Heart Beat, # 30 TAB 0 Refills 04/06/17 Apixaban (Eliquis) 5 Mg Tab, 5 MG PO BID for Blood Clot Prevention, #60 TAB 0 Refills 07/14/[address] (Aspir-81) 81 Mg Tabdr, 81 MG PO HS 07/14/16 Furosemide (Lasix) 40 Mg Tab, 40 MG PO DAILY, #30 TAB 0 Refills 07/14/16 Paroxetine (Paroxetine) 10 Mg Tab, 10 MG PO DAILY, #30 TAB 0 Refills 07/14/16 Metoprolol Tartrate (Metoprolol Tartrate) 100 Mg Tab, 100 MG PO BID, #60 TAB 0 Refills 07/14/16 Sacubitril-Valsartan (Entresto) 97-103 Mg Tab, 1 TAB PO BID for Heart Failure, # 30 TAB 0 Refills 07/14/16 Albuterol 8.5 GM Inh (Proair Hfa 8.5 GM Inh) 90 Mcg/Act Aer, 2 PUFF INH QID Y for SHORTNESS OF BREATH, #1 INHALER 0 Refills 108 mcg/actuation 07/14/16 Tiotropium-Olodaterol Inh (Stiolto Respimat Inh) 2.5-2.5 Mcg/Act Aero, 2 PUFF INH DAILY for COPD, #1 INHALER 0 Refills 07/14/16 Glipizide (Glipizide) 5 Mg Tab, 5 MG PO DAILY for Blood Sugar Management, #30 TAB 0 Refills Take 30 minutes before a meal 07/14/16 Discontinued Scripts Azithromycin (Azithromycin) 250 Mg Tab, 250 MG PO DIRECTED for Infection, #6 TAB 0 Refills Take 2 tabs (500 mg) on day 1 then 1 tab daily x 4 days. Prov:Ehsan Graff MD 04/06/17 Prednisone (Prednisone) 20 Mg Tab, 20 MG PO DAILY for Broncospasm for 5 Days, # 5 TAB Prov:Annel Candelario 01/26/17 Current Medications Medications (Trade) Dose Ordered Sig/Heber Route Start Time Stop Time Status Last Admin (NS Flush) 2 ml UNSCH PRN IV FLUSH 04/09/17 16:00 (NS Flush) 2 ml BID IV FLUSH 04/09/17 21:00 04/11/17 08:01 (Duoneb Neb) 1 ampule Q6HR NEB NEB 04/09/17 22:00 04/11/17 08:17 (Duoneb Neb) 1 ampule Q2HR NEB PRN NEB 04/09/17 16:00 04/10/17 19:23 (Cordarone) 200 mg DAILY PO 04/10/17 09:00 04/11/17 07:57 (Eliquis) 5 mg BID PO 04/09/17 21:00 04/11/17 08:01 (Ecotrin Ec) 81 mg HS PO 04/09/17 21:00 04/10/17 21:28 (Plavix) 75 mg DAILY PO 04/10/17 09:00 04/11/17 07:57 (Lasix) 40 mg DAILY PO 04/10/17 09:00 04/11/17 07:59 (Glucotrol) 5 mg DAILY PO 04/10/17 09:00 04/11/17 07:58 (Lopressor) 100 mg BID PO 04/09/17 21:00 04/11/17 07:57 (KCl) 20 meq DAILY PO 04/10/17 09:00 04/11/17 07:59 (Entresto 97-103 Mg) 1 tab BID PO 04/09/17 21:00 04/11/17 07:57 (Paxil) 10 mg DAILY PO 04/10/17 09:00 04/11/17 07:59 (Lipitor) 40 mg DAILY PO 04/10/17 09:00 04/11/17 07:58 Patient Own Medication PT OWN MED:STIOLTA RESPI... DAILY INH 04/10/17 09:00 Future Hold (Pill Splitter) 1 ea UNSCH PRN OTHER 04/09/17 21:45 Ceftriaxone Sodium 1000 mg/ Sodium Chloride 100 ml @ 200 mls/hr Q24H IV 04/10/17 17:00 04/10/17 18:39 Azithromycin 500 mg/Sodium Chloride 250 ml @ 250 mls/hr Q24H IV 04/10/17 16:00 04/10/17 17:35 (D50w (Vial) Inj) 50 ml UNSCH PRN IV PUSH 04/10/17 05:30 (Glucagon Inj) 1 mg UNSCH PRN OTHER 04/10/17 05:30 (NovoLOG SUPPLEMENTAL SCALE) 1 ACHS SLIDING SCALE SQ 04/10/17 08:00 04/11/17 08:00 (Tylenol) 650 mg Q4H PRN PO 04/10/17 05:30 (Zofran Inj) 4 mg Q6H PRN IVP 04/10/17 05:30 (Tylenol) 650 mg Q6H PRN PO 04/10/17 05:30 (Narcan Inj) 0.4 mg UNSCH PRN IV PUSH 04/10/17 05:30 (Heavenly-Colace) 1 tab BID PO 04/10/17 09:00 04/11/17 07:57 (Senokot) 17.2 mg Q12H PRN PO 04/10/17 05:30 (Dulcolax Supp) 10 mg DAILY PRN RECTAL 04/10/17 05:30 (Lactulose Liq) 30 ml DAILY PRN PO 04/10/17 05:30 (Pepcid) 20 mg Q12HR PO 04/10/17 21:00 04/11/17 07:57 (SoluMEDROL INJ) 40 mg Q6HR IV PUSH 04/11/17 12:00 (Ativan) 0.5 mg Q8H PRN PO 04/11/17 10:30 Family Psych History His mother is bipolar Social History Patient was born and raised in [place], he has been living in [place] for 8 years, 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 2) Support of his , no previous psychiatric hospitalizations or diagnoses. Physical Exam Vital Signs Vital Signs Date Time Temp Pulse Resp B/P (MAP) Pulse Ox O2 Delivery O2 Flow Rate FiO2 04/11/17 11:24 98.0 56 22 142/73 (96) 98 04/11/17 08:17 21 04/09/17 17:09 Room Air Lab Results Date/Time Source Procedure Growth Status 04/09/17 15:30 Blood Peripheral Aerobic Blood Culture - Preliminary Streptococcus Species Resulted 04/09/17 15:30 Blood Peripheral Anaerobic Blood Culture - Preliminary NO GROWTH IN 2 DAYS Resulted 04/10/17 20:40 Nasal Washing Influenza Types A,B Antigen (SURINDER) - Final NEGATIVE FOR FLU A AND B ANTIGEN.... Complete 04/10/17 21:57 Urine Random Urine Legionella Antigen - Final PRESUMPTIVE NEGATIVE FOR LEGIONELLA P... Complete 04/10/17 21:57 Urine Random Urine Streptococcus pneumoniae Antigen (M - Final PRESUMPTIVE NEGATIVE FOR STREPTOCOCCU... Complete Mental Status Examination Appearance: Appropriate, Well dressed/well groomed Consciousness: Highly Distractible, Clouded Orientation: Person Motor Activity: Abnormal gait Speech: Rapid Language: Adequate Fund of Knowledge: Inadequate Attention and Concentration: Easily Distracted Memory: Impaired Mood: Appropriate Affect: Flat Thought Process & Associations: Loose associations Thought Content: Bizarre thinking Hallucination Type: Visual Delusion Type: Paranoid Suicidal Ideation: No Suicidal Plan: No Suicidal Intention: No Homicidal Ideation: No Homicidal Plan: No Homicidal Intention: No Insight: Fair Judgment: Impulsive Assessment & Plan Problem List: (1) Unspecified psychosis ICD Codes: F29 - Unspecified psychosis not due to a substance or known physiological condition Assessment & Plan: On psychiatric evaluation today the patient presents with confusion, attention deficit, fluctuation of consciousness, internal preoccupation, visual hallucinations, disorganized behavior and his speech at times restlessness. As per , this is a unique presentation in patient's life. In the last year he has been showing symptoms of a slow progression of dementia including getting lost in his car and being found in [place] about 2 months ago, forgetting names, becoming disorganized at times, decrease in functionality. Patient doesn't have any previous psychiatric history. This presentation could be consistent with delirium due to his underlying medical condition and is superimposed to ongoing dementia. We'll start Risperdal 0.5 mg twice a day for psychosis and delirium. Consider Haldol 2 mg IM/IV every 8 hours when necessary aggressive behavior and agitation. Consider a neurology consult, EEG and head CT to rule out neurological causes of delirium. Patient might benefit of psychiatric admission is psychosis persists beyond medical clearance. This possibility was widely discussed with his . We'll follow- up. Assessment & Plan Estimated LOS: Fahad Oconnell MD Apr 11, 2017 13:03
[2017-04-11] MEDS: methylPREDNISolone SOD SUCC 40 MG/1 ML VIAL IV PUSH SCH ×2 (13:12→17:23)
[2017-04-11] MEDS: risperiDONE 0.5 MG TAB PO SCH ×2 (14:46→22:07)
[2017-04-11] MEDS: AZITHROMYCIN INJ 500 MG in SODIUM CHLOR 0.9% 250 ML INJ 250 ML IV SCH (14:47)
--- NOTE | 2017-04-11 15:07 | HHI.PR ---
Subjective Remarks Follow-up sepsis and pneumonia. Had a rough night. complains of hallucinations. Discussed with psychiatry, start Risperdal. Also Ativan as needed. Unable to give Geodon, Haldol secondary to potential QT prolongation. EKG shows normal QT intervals. Patient also has audible wheezing Objective Vitals Vital Signs Date Time Temp Pulse Resp B/P (MAP) Pulse Ox O2 Delivery O2 Flow Rate FiO2 04/11/17 11:24 98.0 56 22 142/73 (96) 98 04/11/17 08:17 97 21 04/11/17 07:16 97.8 68 24 159/74 (102) 95 04/11/17 04:37 59 04/11/17 03:23 97.3 63 28 175/78 (110) 99 04/11/17 00:35 96.6 65 26 153/75 (101) 93 04/11/17 00:06 57 04/10/17 22:37 21 04/10/17 20:12 63 04/10/17 19:37 98.0 66 26 135/81 (99) 96 04/10/17 16:03 98.7 64 22 149/69 (95) 92 I/O 04/10/17 04/10/17 04/10/17 04/11/17 04/11/17 04/11/17 07:00 15:00 23:00 07:00 15:00 23:00 Output Total 300 ml Balance -300 ml Output Urine Total 300 ml # Bowel Movements 2 Result Diagram: 04/10/17 0653 04/10/17 0653 Imaging Last Impressions Chest X-Ray 04/09/17 1343 Signed Impressions: Service Date/Time: Sunday, April 09, 2017 14:24 - CONCLUSION: New nodular parenchymal consolidation involving the left lung. Infectious etiology is suspected. Follow up studies to document resolution are needed. Maxwell Stringer Jr., MD Objective Remarks GENERAL: Well-developed and well-nourished in no distress. Audible wheezing SKIN: Warm and dry. Rosacea bilateral cheeks HEAD: Atraumatic. Normocephalic. EYES: Pupils equal and round. No scleral icterus. No injection or drainage. ENT: No nasal bleeding or discharge. Mucous membranes pink and moist. NECK: Trachea midline. No JVD. CARDIOVASCULAR: Regular rate and rhythm. RESPIRATORY: No accessory muscle use. Expiratory wheezes. Breath sounds equal bilaterally. GASTROINTESTINAL: Abdomen soft, non-tender, nondistended. MUSCULOSKELETAL: Extremities without clubbing, cyanosis, or edema. No obvious deformities. NEUROLOGICAL: Awake and alert. No obvious cranial nerve deficits. Motor grossly within normal limits. Five out of 5 muscle strength in the arms and legs. Normal speech. PSYCHIATRIC: Appropriate mood and affect; insight and judgment normal. Procedures Non- A/P Problem List: (1) Pneumonia ICD Code: J18.9 - Pneumonia, unspecified organism Status: Acute (2) COPD with acute exacerbation ICD Code: J44.1 - Chronic obstructive pulmonary disease with (acute) exacerbation Status: Acute Assessment and Plan COPD exacerbation secondary to pneumonia. Today he is wheezing will switch prednisone to IV Solu-Medrol and continue oxygen, nebulizations, Rocephin and Zithromax. Negative influenza, follow-up pneumococcal and Legionella urinary antigen. Severe sepsis. Gram-positive cocci in blood culture. Follow up Troponin bump. Denies chest pain. EKG and change. This is secondary to above and chronic kidney disease. Spect negative in 06/2016 Hallucinations. Repeat labs CBC, BMP today. Per psychiatry, start Risperdal Chronic kidney disease stage III. Improving Chronic medical conditions of dementia, CHF with ejection fraction 50%, A. fib, coronary artery disease status post NM, diabetes mellitus and hypothyroidism. DVT prophylaxis with Eliquis He is a DO NOT RESUSCITATE per Follow-up pending labs Discharge Planning Not ready for discharge Problem Qualifiers (1) Pneumonia: Qualified Codes: J18.9 - Pneumonia, unspecified organism Butch Ramírez MD Apr 11, 2017 15:07
[2017-04-11] MEDS: cefTRIAXone INJ 1,000 MG in SODIUM CHLORIDE 0.9% INJ 100 ML IV SCH (16:30)
[2017-04-11] MEDS: LORazepam 0.5 MG TAB PO PRN (17:24)
[2017-04-11 17:53] LABS: AUTOMATED NEUTROPHIL # 10.6 TH/MM3 (1.8-7.7); BASOPHIL % 0.1 % (0.0-2.0); HEMATOCRIT 43.2 % (39.0-51.0); HEMO FLAGS DIFF FINAL; LYMPH % 2.9 % (9.0-44.0); LYMPHOCYTE # 0.3 TH/MM3 (1.0-4.8); MEAN CELL VOLUME 95.9 FL (80.0-100.0); MEAN CORPUSCULAR HEMOGLOBIN 32.2 PG (27.0-34.0); MEAN CORPUSCULAR HGB CONC 33.5 % (32.0-36.0); MONO % 3.2 % (0.0-8.0); NEUT % 93.8 % (16.0-70.0); PLATELET COUNT 244 TH/MM3 (150-450); RED CELL DISTRIBUTION WIDTH 14.3 % (11.6-17.2); WHITE BLOOD COUNT 11.2 TH/MM3 (4.0-11.0)
[2017-04-11 18:10] LABS: ALT (GPT) 39 U/L (12-78); ANION GAP 12 MEQ/L (5-15); AST (GOT) 23 U/L (15-37); BICARBONATE 27.9 MEQ/L (21.0-32.0); BLOOD UREA NITROGEN 42 MG/DL (7-18); CHLORIDE 102 MEQ/L (98-107); GLOMERULAR FILTRATION RATE 48 ML/MIN (>89); MAGNESIUM 2.7 MG/DL (1.5-2.5); POTASSIUM 4.2 MEQ/L (3.5-5.1); SODIUM (NA) 142 MEQ/L (136-145)
[2017-04-11 18:12] LABS: ALKALINE PHOSPHATASE 89 U/L (45-117)
[2017-04-11] MEDS: ASPIRIN EC 81 MG TABEC PO SCH (22:08)
[2017-04-12] VITALS (12 sets, daily range): BP systolic 104–191; BP diastolic 54–88; PULSE 51–75; RESP 20–24; TEMP 96.9–98.3; O2SAT 94–98
[2017-04-12] MEDS: SODIUM CHLORIDE 0.9% FLUSH 10 ML FLUSH IV FLUSH PRN ×2 (00:59→05:58)
[2017-04-12] MEDS: methylPREDNISolone SOD SUCC 40 MG/1 ML VIAL IV PUSH SCH ×4 (00:59→18:17)
[2017-04-12] MEDS: RESP: ALBUTEROL 2.5 MG/IPRATROPIUM 0.5 MG NEB (SCH) NEB ×4 (04:08→19:52)
[2017-04-12 07:51] LABS: HEMATOCRIT 37.7 % (39.0-51.0); HEMO FLAGS DIFF FINAL; LYMPH % 4.9 % (9.0-44.0); LYMPHOCYTE # 0.3 TH/MM3 (1.0-4.8); MEAN CELL VOLUME 95.7 FL (80.0-100.0); MEAN CORPUSCULAR HEMOGLOBIN 31.6 PG (27.0-34.0); MONO % 4.2 % (0.0-8.0); NEUT % 90.9 % (16.0-70.0); PLATELET COUNT 188 TH/MM3 (150-450); RED BLOOD COUNT 3.94 MIL/MM3 (4.50-5.90); WHITE BLOOD COUNT 6.6 TH/MM3 (4.0-11.0)
[2017-04-12] MEDS: DOCUSATE SODIUM 50 MG/SENNA 8.6 MG TAB PO SCH ×2 (08:52→21:22)
[2017-04-12] MEDS: risperiDONE 0.5 MG TAB PO SCH ×2 (08:52→21:22)
[2017-04-12] MEDS: METOPROLOL TARTRATE 100 MG TAB PO SCH ×2 (08:53→21:22)
[2017-04-12] MEDS: FUROSEMIDE 40 MG TAB PO SCH (08:53)
[2017-04-12] MEDS: SACUBITRIL/VALSARTAN 97 MG-103 MG TAB PO SCH ×2 (08:54→21:22)
[2017-04-12] MEDS: CLOPIDOGREL 75 MG TAB PO SCH (08:54)
[2017-04-12] MEDS: glipiZIDE 5 MG TAB PO SCH (08:55)
[2017-04-12] MEDS: FAMOTIDINE 20 MG TAB PO SCH ×2 (08:55→21:22)
[2017-04-12] MEDS: PARoxetine HCL 20 MG TAB PO SCH (08:55)
[2017-04-12] MEDS: APIXABAN 5 MG TABLET PO SCH ×2 (08:55→21:22)
[2017-04-12] MEDS: INSULIN ASPART SUPPLEMENTAL SCALE SQ SCH ×4 (08:57→21:23)
[2017-04-12] MEDS: ATORVASTATIN 40 MG TAB PO SCH (08:57)
[2017-04-12] MEDS: POTASSIUM CHLORIDE 20 MEQ CONTROLLED RELEASE TAB PO SCH (08:57)
[2017-04-12] MEDS: AMIODARONE 200 MG TAB PO SCH (08:57)
[2017-04-12] MEDS: SODIUM CHLORIDE 0.9% FLUSH 10 ML FLUSH IV FLUSH SCH ×2 (08:58→21:22)
--- NOTE | 2017-04-12 11:41 | HHI.PYPN ---
Subjective Remarks Patient was seen today for psychiatric reevaluation. Documentation was reviewed. Discussed with primary medical team. Patient continues to be disoriented, unable to articulate any logical statement. Unable to recognize even his . He is a little bit restless, but no agitation or aggressive behavior reported. Last night he had a good sleep, as per . He has been compliant with his medications, no significant side effects reported. Mental Status Examination Appearance: Appropriate, Well dressed/well groomed Consciousness: Highly Distractible, Clouded Orientation: Person Motor Activity: Abnormal gait Speech: Rapid Language: Adequate Fund of Knowledge: Inadequate Attention and Concentration: Easily Distracted Memory: Impaired Mood: Appropriate Affect: Flat Thought Process & Associations: Loose associations Thought Content: Bizarre thinking Hallucination Type: Visual Delusion Type: Paranoid Suicidal Ideation: No Suicidal Plan: No Suicidal Intention: No Homicidal Ideation: No Homicidal Plan: No Homicidal Intention: No Insight: Fair Judgment: Impulsive Results Labs Test 04/11/17 16:45 04/12/17 07:02 White Blood Count 11.2 TH/MM3 6.6 TH/MM3 Red Blood Count 4.50 MIL/MM3 3.94 MIL/MM3 Hemoglobin 14.5 GM/DL 12.4 GM/DL Hematocrit 43.2 % 37.7 % Mean Corpuscular Volume 95.9 FL 95.7 FL Mean Corpuscular Hemoglobin 32.2 PG 31.6 PG Mean Corpuscular Hemoglobin Concent 33.5 % 33.0 % Red Cell Distribution Width 14.3 % 14.0 % Platelet Count 244 TH/MM3 188 TH/MM3 Mean Platelet Volume 9.3 FL 8.6 FL Neutrophils (%) (Auto) 93.8 % 90.9 % Lymphocytes (%) (Auto) 2.9 % 4.9 % Monocytes (%) (Auto) 3.2 % 4.2 % Eosinophils (%) (Auto) 0.0 % 0.0 % Basophils (%) (Auto) 0.1 % 0.0 % Neutrophils # (Auto) 10.6 TH/MM3 6.0 TH/MM3 Lymphocytes # (Auto) 0.3 TH/MM3 0.3 TH/MM3 Monocytes # (Auto) 0.4 TH/MM3 0.3 TH/MM3 Eosinophils # (Auto) 0.0 TH/MM3 0.0 TH/MM3 Basophils # (Auto) 0.0 TH/MM3 0.0 TH/MM3 CBC Comment DIFF FINAL DIFF FINAL Differential Comment Blood Urea Nitrogen 42 MG/DL Creatinine 1.46 MG/DL Random Glucose 204 MG/DL Total Protein 7.4 GM/DL Albumin 3.4 GM/DL Calcium Level 8.6 MG/DL Magnesium Level 2.7 MG/DL Alkaline Phosphatase 89 U/L Aspartate Amino Transf (AST/SGOT) 23 U/L Alanine Aminotransferase (ALT/SGPT) 39 U/L Total Bilirubin 1.0 MG/DL Sodium Level 142 MEQ/L Potassium Level 4.2 MEQ/L Chloride Level 102 MEQ/L Carbon Dioxide Level 27.9 MEQ/L Anion Gap 12 MEQ/L Estimat Glomerular Filtration Rate 48 ML/MIN Date/Time Source Procedure Growth Status 04/12/17 07:07 Blood Peripheral Aerobic Blood Culture Pending Received 04/12/17 07:07 Blood Peripheral Anaerobic Blood Culture Pending Received 04/10/17 20:40 Nasal Washing Influenza Types A,B Antigen (SURINDER) - Final NEGATIVE FOR FLU A AND B ANTIGEN.... Complete 04/10/17 21:57 Urine Random Urine Legionella Antigen - Final PRESUMPTIVE NEGATIVE FOR LEGIONELLA P... Complete 04/10/17 21:57 Urine Random Urine Streptococcus pneumoniae Antigen (M - Final PRESUMPTIVE NEGATIVE FOR STREPTOCOCCU... Complete Vitals/IOs Vital Signs Date Time Temp Pulse Resp B/P (MAP) Pulse Ox O2 Delivery O2 Flow Rate FiO2 04/12/17 09:26 63 04/12/17 08:00 98.2 20 191/88 (122) 98 04/12/17 07:46 Nasal Cannula 2.00 04/11/17 08:17 21 Intake and Output 04/12/17 04/12/17 04/13/17 08:00 16:00 00:00 Intake Total 240 ml Output Total 300 ml Balance -60 ml Assessment & Plan Problem List: (1) Unspecified psychosis ICD Codes: F29 - Unspecified psychosis not due to a substance or known physiological condition Assessment & Plan: Patient continues to be disoriented, disorganized, unable to even recognize his , with severe attention deficit, fluctuation of consciousness which suggest delirium. Continue Risperdal 0.5 mg twice a day to help with delirium. QTc is now corrected. Can use Haldol 2 mg IM every 8 hours when necessary agitation. I suspect that this delirium could be related with high dose of steroids, but consider a neurology consult and a brain CT. Assessment & Plan Estimated LOS: days Justification for Cont. Inpt. Patient might benefit of psychiatric admission if psychosis persist beyond medical clearance. Fahad Nicole MD Apr 12, 2017 11:41
[2017-04-12] MEDS: LORazepam 0.5 MG TAB PO PRN ×2 (13:21→21:22)
--- NOTE | 2017-04-12 14:14 | HHI.PR ---
Subjective Remarks Follow-up for COPD, pneumonia, acute delirium. Patient is pretty much nonverbal. He simply says 'something new' to any questions. Later on I discussed with at bedside as well. She reports that his mentation is somewhat worse since he came to the hospital. Patient does not have any fever or chills. He is ambulating well on room air. Objective Vitals Vital Signs Date Time Temp Pulse Resp B/P (MAP) Pulse Ox O2 Delivery O2 Flow Rate FiO2 04/12/17 12:19 97.4 51 20 167/70 (102) 97 04/12/17 09:26 63 04/12/17 08:00 98.2 71 20 191/88 (122) 98 04/12/17 07:46 96 Nasal Cannula 2.00 04/12/17 05:00 98.3 69 20 175/79 (111) 96 04/12/17 00:10 98.3 58 24 104/54 (71) 94 04/11/17 20:43 97 Nasal Cannula 2.00 04/11/17 20:20 98.5 58 24 189/86 (120) 96 04/11/17 18:26 97.7 64 26 184/82 (116) 96 04/11/17 15:15 97.5 62 24 157/82 (107) 95 I/O 04/11/17 04/11/17 04/11/17 04/12/17 04/12/17 04/12/17 07:00 15:00 23:00 07:00 15:00 23:00 Intake Total 1450 ml 240 ml Output Total 1100 ml 300 ml Balance 350 ml -60 ml Intake Oral 750 ml 240 ml IV Total 700 ml Output Urine Total 1100 ml 300 ml # Voids 1 Result Diagram: 04/12/17 0702 04/11/17 1645 Imaging Last Impressions Chest X-Ray 04/09/17 1343 Signed Impressions: Service Date/Time: Sunday, April 09, 2017 14:24 - CONCLUSION: New nodular parenchymal consolidation involving the left lung. Infectious etiology is suspected. Follow up studies to document resolution are needed. Maxwell Stringer Jr., MD Objective Remarks GENERAL: Alert, NAD. SKIN: Warm and dry. HEAD: Normocephalic. EYES: No scleral icterus. No injection or drainage. NECK: Supple, trachea midline. No JVD or lymphadenopathy. CARDIOVASCULAR: Regular rate and rhythm without murmurs, gallops, or rubs. RESPIRATORY: Breath sounds equal bilaterally. No accessory muscle use. GASTROINTESTINAL: Abdomen soft, non-tender, nondistended. MUSCULOSKELETAL: No cyanosis, or edema. Neurology: No focal deficits. CN II-XII appears to be grossly intact. Follows commands. BACK: Nontender without obvious deformity. No CVA tenderness. Procedures None A/P Problem List: (1) Pneumonia ICD Code: J18.9 - Pneumonia, unspecified organism Status: Acute (2) COPD with acute exacerbation ICD Code: J44.1 - Chronic obstructive pulmonary disease with (acute) exacerbation Status: Acute Assessment and Plan Mr. Sanchez is a 71-year-old male with a history of hypertension, diabetes mellitus, CAD, atrial fibrillation who presented to the emergency department on 04/09/2017 due to shortness of breath. He developed acute delirium while in the hospital. - Community-acquired pneumonia - Acute COPD exacerbation - Increase ceftriaxone to 2 g every 24 hours and continue azithromycin. - Continue Solu-Medrol 40 mg every 6 hours. - Continue breathing treatments scheduled and when necessary. - Supplemental oxygen to keep O2 sat above 90%. - Coronary artery disease - Atrial fibrillation - Patient has had 6 stent placements including last one being within last 2- 3 weeks. - Currently on apixaban 5 mg twice a day, aspirin, Plavix - Continue amiodarone 200 mg daily, atorvastatin 40 mg daily, Lasix 40 mg daily - Continue metoprolol 100 mg twice a day. - Continue Entresto 97-103mg. - Acute delirium - Likely due to infection as well as being out of home. - We'll consult neurology based on psychiatry recommendations. - I do not see any focal neurological deficits. No history of seizure activities. Not sure if MRI studies or EEG would be of much benefit. - If neurological evaluation reveals no significant findings, we'll consider discharging patient home in home environment with oral antibiotics. - Hypertension - Start Amlodipine 5mg Qday. - Diabetes mellitus - Discontinue glipizide. - Start Levemir 10 minutes daily at bedtime and continue sliding scale insulin. Full code. Apixaban. Problem Qualifiers (1) Pneumonia: Qualified Codes: J18.9 - Pneumonia, unspecified organism Pauline Salter DO Apr 12, 2017 2:14 pm
[2017-04-12] MEDS ORDERED: amLODIPine BESYLATE 5 MG TAB PO ONE (14:15)
[2017-04-12] MEDS ORDERED: cefTRIAXone INJ 2,000 MG in SODIUM CHLORIDE 0.9% INJ 100 ML IV SCH (15:00)
[2017-04-12] MEDS: AZITHROMYCIN INJ 500 MG in SODIUM CHLOR 0.9% 250 ML INJ 250 ML IV SCH (18:17)
--- NOTE | 2017-04-12 19:01 | MB ---
cc: SCOTTY JOSE M.D. DATE OF CONSULTATION: 04/12/2017 DATE OF : 1945, AGE 71 REASON FOR CONSULTATION Acute delirium. HISTORY OF PRESENT ILLNESS A 71-year-old man who was admitted to the hospital on 04/09/17, apparently was seen three days prior with some COPD exacerbation and discharged on antibiotics and steroids. However, apparently did not fill the azithromycin but did not take the prednisone, became worse, reported shortness of breath, using nebulizers at home, had some exacerbation of symptoms and was admitted and very confused since admission. Lives in [place], retired. No history of psychiatric illness. He has a history of a-fib, CAD, diabetes, COPD, heparin-induced thrombocytopenia, hypertension. The patient is very disoriented. His is at bedside with him. However, he is walking around the room just in pants without a shirt on, confused but pleasant. He is not agitated or aggressive. He is unable to articulate. He almost has what you would think is a word salad. Tries to follow commands but still looks very confused when I asked him. He was only able state his name. He could not recognize his . He could not tell me his date of nor his age nor his address. His states that last night he had a good night sleep because he was given medication. MEDICATIONS His current medications - 1. Amlodipine. 2. Insulin. 3. Rocephin. 4. Risperdal. 5. Solu-Medrol. 6. Lorazepam. 7. Famotidine. 8. Azithromycin. 9. Amiodarone. 10. Plavix. 11. Lasix. 12. Potassium. 13. Paxil. 14. Atorvastatin. 15. Eliquis. 16. Baby aspirin. NEUROLOGIC EXAMINATION VITAL SIGNS: Temperature is 96.9 axillary, pulse 62, respiratory rate 20, blood pressure 147/76. He is awake and alert. Has difficulty following commands. His speech is nonsensical almost a word salad but able to state his name. His pupils are reactive. His face looks symmetrical. Motor-wilkins he is using his arms equally, I do not see any weakness. He has a lot of bruising and ecchymotic areas in his arms. He is ambulating in the room without any difficulty. Trace to 1+ reflexes. Cerebellar: He does not follow the concept. LABORATORY DATA His hemoglobin is 12.4, white count 6.6, his platelets are 188,000. Coag panel was unremarkable. His BUN is 42, creatinine 1.46, GFR 48, glucose 204, magnesium 2.7. BNP on admission was 647, troponin 0.05, 0.05 and 0.10. IMAGING STUDIES Chest x-ray: New nodular consolidation left lung, infectious etiology suspected IMPRESSION AND RECOMMENDATIONS A 71-year-old man with confusion, possible delirium, certainly still concerning if he may have had a stroke causing him to have trouble with his speech and confusion, less likely but I would like to get an EEG as well as an MRI of the brain. Continue his antiplatelets and anticoagulants. Continue antibiotics for his pneumonia and COPD. Monitor blood pressure, maintain his blood pressure at normal levels. Diabetes, Accu-Cheks and medication as doing currently. Make sure that he does sleep on a nightly basis. If he still is confused, I will go ahead and check an ABG as well. However, it seems like he is 96% on 2 liters and does not look like he is having any trouble breathing. I will go ahead and get an EEG an MRI and make further recommendations if needed. MD PENG Hernandez/ASHLEIGH /5:16 PM /6:35 PM
[2017-04-12] MEDS ORDERED: INSULIN DETEMIR 100 UNITS/ML VIAL SQ SCH (21:00)
[2017-04-12] MEDS: ASPIRIN EC 81 MG TABEC PO SCH (21:22)
[2017-04-12] MEDS: DEXAMETHASONE SOD PHOS 20 MG/5 ML VIAL IV PUSH SCH (22:51)
[2017-04-13] VITALS (10 sets, daily range): BP systolic 101–176; BP diastolic 55–83; PULSE 51–75; RESP 18–24; TEMP 97.4–98.2; O2SAT 93–100
[2017-04-13] MEDS: cefTRIAXone INJ 2,000 MG in SODIUM CHLORIDE 0.9% INJ 100 ML IV SCH ×2 (03:16→16:26)
[2017-04-13] MEDS: RESP: ALBUTEROL 2.5 MG/IPRATROPIUM 0.5 MG NEB (SCH) NEB ×4 (03:46→19:54)
[2017-04-13] MEDS: DEXAMETHASONE SOD PHOS 20 MG/5 ML VIAL IV PUSH SCH ×4 (04:47→23:00)
[2017-04-13] MEDS ORDERED: LORazepam 2 MG/ML VIAL IV SCH (08:30)
[2017-04-13] MEDS: CLOPIDOGREL 75 MG TAB PO SCH (08:41)
[2017-04-13] MEDS: SACUBITRIL/VALSARTAN 97 MG-103 MG TAB PO SCH ×2 (08:42→21:00)
[2017-04-13] MEDS: APIXABAN 5 MG TABLET PO SCH ×2 (08:42→21:00)
[2017-04-13] MEDS: AMIODARONE 200 MG TAB PO SCH (08:42)
[2017-04-13] MEDS: FAMOTIDINE 20 MG TAB PO SCH ×2 (08:43→21:00)
[2017-04-13] MEDS: amLODIPine BESYLATE 5 MG TAB PO SCH (08:43)
[2017-04-13] MEDS: risperiDONE 0.5 MG TAB PO SCH (08:43)
[2017-04-13] MEDS: FUROSEMIDE 40 MG TAB PO SCH (08:43)
[2017-04-13] MEDS: PARoxetine HCL 20 MG TAB PO SCH (08:43)
[2017-04-13] MEDS: ATORVASTATIN 40 MG TAB PO SCH (08:44)
[2017-04-13] MEDS: METOPROLOL TARTRATE 100 MG TAB PO SCH ×2 (08:44→21:00)
[2017-04-13] MEDS: POTASSIUM CHLORIDE 20 MEQ CONTROLLED RELEASE TAB PO SCH (08:44)
[2017-04-13] MEDS: DOCUSATE SODIUM 50 MG/SENNA 8.6 MG TAB PO SCH ×2 (08:45→21:00)
[2017-04-13] MEDS: SODIUM CHLORIDE 0.9% FLUSH 10 ML FLUSH IV FLUSH SCH ×2 (09:00→21:00)
[2017-04-13] MEDS: INSULIN ASPART SUPPLEMENTAL SCALE SQ SCH ×4 (09:59→21:00)
--- NOTE | 2017-04-13 10:03 | HHI.PR ---
Subjective Remarks Follow-up for COPD, pneumonia, pneumococcal bacteremia. Patient is sitting on the couch. He shows slight improvement. He is able to tell me his first name and last name. He remains confused. is at bedside. again mentions that this is a drastic change from his baseline despite the fact that he has some dementia. Objective Vitals Vital Signs Date Time Temp Pulse Resp B/P (MAP) Pulse Ox O2 Delivery O2 Flow Rate FiO2 04/13/17 08:59 Nasal Cannula 2.00 04/13/17 08:23 97.5 56 20 176/78 (110) 94 04/13/17 04:55 98.2 54 20 119/55 (76) 95 04/13/17 00:19 98.2 75 24 139/83 (101) 95 04/12/17 23:36 55 04/12/17 22:18 65 04/12/17 20:50 Room Air 04/12/17 20:00 97.7 68 22 132/66 (88) 96 04/12/17 19:53 96 04/12/17 15:27 96.9 62 20 147/76 (99) 96 04/12/17 12:19 97.4 51 20 167/70 (102) 97 I/O 04/12/17 04/12/17 04/12/17 04/13/17 04/13/17 04/13/17 07:00 15:00 23:00 07:00 15:00 23:00 Intake Total 240 ml 720 ml 450 ml Output Total 300 ml Balance -60 ml 720 ml 450 ml Intake Oral 240 ml 720 ml IV Total 450 ml Output Urine Total 300 ml # Voids 1 3 # Bowel Movements 1 Result Diagram: 04/12/17 0702 04/11/17 1645 Imaging Last Impressions Brain MRI 04/13/17 0000 Signed Impressions: Service Date/Time: Thursday, April 13, 2017 09:13 - CONCLUSION: 1. No acute hemorrhage, mass or infarction. 2. Mild chronic small vessel ischemic changes again noted. Tom Rosas MD Chest X-Ray 04/09/17 1343 Signed Impressions: Service Date/Time: Sunday, April 09, 2017 14:24 - CONCLUSION: New nodular parenchymal consolidation involving the left lung. Infectious etiology is suspected. Follow up studies to document resolution are needed. Maxwell Stringer Jr., MD Objective Remarks GENERAL: Alert, NAD. SKIN: Warm and dry. HEAD: Normocephalic. EYES: No scleral icterus. No injection or drainage. NECK: Supple, trachea midline. No JVD or lymphadenopathy. CARDIOVASCULAR: Regular rate and rhythm without murmurs, gallops, or rubs. RESPIRATORY: Breath sounds equal bilaterally. No accessory muscle use. GASTROINTESTINAL: Abdomen soft, non-tender, nondistended. MUSCULOSKELETAL: No cyanosis, or edema. Neurology: No focal deficits. CN II-XII appears to be grossly intact. Follows commands. BACK: Nontender without obvious deformity. No CVA tenderness. Procedures None A/P Problem List: (1) Pneumonia ICD Code: J18.9 - Pneumonia, unspecified organism Status: Acute (2) COPD with acute exacerbation ICD Code: J44.1 - Chronic obstructive pulmonary disease with (acute) exacerbation Status: Acute (3) Pneumococcal bacteremia ICD Code: R78.81 - Bacteremia Assessment and Plan Mr. Sanchez is a 71-year-old male with a history of hypertension, diabetes mellitus, CAD, atrial fibrillation who presented to the emergency department on 04/09/2017 due to shortness of breath. He developed acute delirium while in the hospital. - Acute delirium - Possibility of bacterial meningitis - Pneumococcal bacteremia - MRI brain shows no acute hemorrhage, mass or infarction. - Due to patient's mental status change, pneumococcal bacteremia, patient is currently on empirical treatment for pneumococcal meningitis. - We'll continue ceftriaxone 2 g every 12 hours, dexamethasone 10 mg every 6 hours. - ID consult pending. If suspicion remains high, we'll consider lumbar puncture. - However, obtaining lumbar puncture anytime soon would be difficult due to patient's current medications include apixaban, aspirin, Plavix. - Community-acquired pneumonia - Acute COPD exacerbation - Continue ceftriaxone 2 g every 12 hours, continue his azithromycin. - Currently on dexamethasone 10 mg every 6 hours. - Continue breathing treatments scheduled and when necessary. - Supplemental oxygen to keep O2 sat above 90%. - Coronary artery disease - Atrial fibrillation - Patient has had 6 stent placements including last one being within last 2- 3 weeks. - Currently on apixaban 5 mg twice a day, aspirin, Plavix - Continue amiodarone 200 mg daily, atorvastatin 40 mg daily, Lasix 40 mg daily - Continue metoprolol 100 mg twice a day. - Continue Entresto 97-103mg. - Hypertension - Continue Amlodipine 5mg Qday. - Diabetes mellitus - Discontinue glipizide. - Levemir 12 units daily at bedtime and continue sliding scale insulin. Full code. Apixaban. Problem Qualifiers (1) Pneumonia: Qualified Codes: J18.9 - Pneumonia, unspecified organism Pauline Salter DO Apr 13, 2017 10:03 am
--- NOTE | 2017-04-13 10:05 | RADRPT ---
EXAM DATE/TIME: 04/13/2017 09:13 [facility] COMPARISON: MRI BRAIN W/O CONTRAST, July 15, 2016, 8:53. INDICATIONS : CVA. Confusion. MEDICAL HISTORY : Hypertension. SURGICAL HISTORY : Inguinal hernia repair. ENCOUNTER: Initial ACUITY: 2 day PAIN SCORE: Nonresponsive. LOCATION: head TECHNIQUE: Multiplanar, multisequence MRI of the brain was performed without contrast. FINDINGS: CEREBRUM: The ventricles are normal for age. No evidence of midline shift, mass lesion, hemorrhage or acute in farction. No extraaxial fluid collections are seen. The pituitary gland and suprasellar cistern are normal in configuration. WHITE MATTER: On the flair weighted images there is increased signal in the centrum semiovale and periventricular w saige matter consistent with proximal muscle ischemic change. This is not significantly changed. POSTERIOR FOSSA: The cerebellum and brainstem are intact. The 4th ventricle is midline. The cerebellopontine angle is unremarkable. The cerebellar tonsils are normal in position. DIFFUSION IMAGING: No focal areas of restricted diffusion are seen. No evidence of acute infarction. EXTRACRANIAL: The visualized portions of the orbits and paranasal sinuses are unremarkable. CONCLUSION: 1. No acute hemorrhage, mass or infarction. 2. Mild chronic small vessel ischemic changes again noted. Tom Rosas MD on April 13, 2017 at 10:01 Board Certified Radiologist. This report was verified electronically.
--- NOTE | 2017-04-13 11:36 | HHI.PYPN ---
Subjective Remarks Patient continues to be very confused, restless, disoriented. Yesterday patient was agitated, became aggressive with his . Today on psychiatric evaluation he sedated with Ativan in order to do the MRI. Review of Systems Except as stated in HPI: all other systems reviewed are Neg Mental Status Examination Appearance: Appropriate, Well dressed/well groomed Consciousness: Highly Distractible, Clouded Orientation: Person Motor Activity: Abnormal gait Speech: Rapid Language: Adequate Fund of Knowledge: Inadequate Attention and Concentration: Easily Distracted Memory: Impaired Mood: Appropriate Affect: Flat Thought Process & Associations: Loose associations Thought Content: Bizarre thinking Hallucination Type: Visual Delusion Type: Paranoid Suicidal Ideation: No Suicidal Plan: No Suicidal Intention: No Homicidal Ideation: No Homicidal Plan: No Homicidal Intention: No Insight: Fair Judgment: Impulsive Results Labs Date/Time Source Procedure Growth Status 04/12/17 07:07 Blood Peripheral Aerobic Blood Culture - Preliminary NO GROWTH IN 1 DAY Resulted 04/12/17 07:07 Blood Peripheral Anaerobic Blood Culture - Preliminary NO GROWTH IN 1 DAY Resulted 04/10/17 20:40 Nasal Washing Influenza Types A,B Antigen (SURINDER) - Final NEGATIVE FOR FLU A AND B ANTIGEN.... Complete 04/10/17 21:57 Urine Random Urine Legionella Antigen - Final PRESUMPTIVE NEGATIVE FOR LEGIONELLA P... Complete 04/10/17 21:57 Urine Random Urine Streptococcus pneumoniae Antigen (M - Final PRESUMPTIVE NEGATIVE FOR STREPTOCOCCU... Complete Vitals/IOs Vital Signs Date Time Temp Pulse Resp B/P (MAP) Pulse Ox O2 Delivery O2 Flow Rate FiO2 04/13/17 08:59 Nasal Cannula 2.00 04/13/17 08:23 97.5 56 20 176/78 (110) 94 04/11/17 08:17 21 Intake and Output 04/13/17 04/13/17 04/14/17 08:00 16:00 00:00 Intake Total 450 ml Balance 450 ml Assessment & Plan Problem List: (1) Unspecified psychosis ICD Codes: F29 - Unspecified psychosis not due to a substance or known physiological condition Assessment & Plan: The patient continues to be confused, disoriented, with periodic restlessness agitation. We'll increase Risperdal to 1 mg twice a day. Assessment & Plan Estimated LOS: days Justification for Cont. Inpt. Patient might need psychiatric admission if psychosis persists beyond medical clearance. Fahad Nicole MD Apr 13, 2017 11:36
--- NOTE | 2017-04-13 16:17 | MB ---
cc: DELROY BAILEY MD DATE OF CONSULTATION: 04/13/2017. REASON FOR CONSULTATION: Acute delirium. Pneumonia. Strep pneumoniae bacteremia. REQUESTING PHYSICIAN: Dr. Salter. HISTORY OF PRESENT ILLNESS: This is a 71-year-old white male who was admitted to the hospital on 04/09 after he presented with respiratory distress. The patient was felt to have COPD exacerbation. Very little information was obtained from the patient. He reportedly noted to the emergency room physicians that he had dementia. He was previously seen at the emergency department with COPD exacerbation on April 06. A chest x-ray was performed and showed cardiomegaly without pulmonary vascular engorgement. The patient had a chest x-ray performed on 04/09 and it showed new nodular parenchymal consolidation involving the left lung. His white blood cell count was elevated at 13.0. Blood cultures were taken on admission. The patient was put on antibiotics. Blood cultures came back showing Strep pneumoniae in both sets. The patient has been continued on IV antibiotics. He has been mostly agitated and has altered mental status with visual hallucinations. He went for an MRI today and currently very somnolent. He received Ativan for the MRI. I am unable to arouse him at this point. He has a family friend in the room with him. She reports that she had seen him about a week or two prior and that he was going about his usual activities without difficulties; however, she reports that he had been deteriorating after that. He has been afebrile. His white blood cell count is now down to normal. Repeated blood cultures have no growth in one day. MRI of the brain shows no acute hemorrhage or mass or infarct. Since the patient is asleep and not waking up or interacting, I cannot get any meaningful information from him. PAST MEDICAL HISTORY: 1. Hypertension. 2. Hyperlipidemia. 3. COPD. 4. Atrial fibrillation. 5. Congestive heart failure. 6. Diabetes mellitus type 2. 7. Hypothyroidism. 8. Alzheimer's disease. 9. Coronary artery disease. 10. History of myocardial infarction. 11. History of coronary stents. 12. Inguinal hernia repair. ALLERGIES: 1. HYDROCHLOROTHIAZIDE. 2. HEPARIN. 3. ENOXAPARIN. MEDICATIONS: 1. Ceftriaxone 2 grams IV q. 12. 2. Norvasc. 3. Levemir. 4. Risperdal. 5. Decadron. 6. Pepcid. 7. Azithromycin. 8. Cordarone. 9. Plavix. 10. Lasix. 11. Potassium. 12. Paxil. 13. Lipitor. 14. Eliquis. 15. Lopressor. 16. Entresto. SOCIAL HISTORY: The patient is . No tobacco, no alcohol. No illicit drugs. FAMILY HISTORY: Unable to obtain. REVIEW OF SYSTEMS: Unable to obtain a review of systems. PHYSICAL EXAMINATION: GENERAL: This is a well-developed male who is very somnolent. I am unable to arouse him. He is in no acute distress. VITAL SIGNS: The vital signs include a temperature of 98.1, blood pressure 101/57, respirations 20, heart rate 59. HEAD, EYES, EARS, NOSE, THROAT: The head is atraumatic. Extraocular movements cannot be assessed because the patient does not awaken and is not able to respond at this time. NECK: The neck is supple without adenopathy. LUNGS: Decreased breath sounds with rhonchi at the right base. HEART: Regular. S1 and S2 without audible murmurs. ABDOMEN: Soft, no tenderness appreciated. No guarding. RECTAL: Not performed. EXTREMITIES: No clubbing or cyanosis or edema. The patient has ecchymotic lesions at the upper extremities. SKIN: No diffuse rash. NEUROLOGIC: Unable to assess. PSYCHIATRIC: Unable to assess. LABS: WBCs 6.6, platelets 188,000, 90% neutrophils, 12.4 hemoglobin. Creatinine 1.46, BUN 42, estimated GFR 48, sodium 142. Liver function tests normal. IMPRESSION: 1. Pneumococcal bacteremia. 2. Pneumococcal pneumonia. 3. Altered mental status likely related to Dementia. The mental status change is probably unrelated to the bacteremia in this patient who has reportedly a history of dementia. RECOMMENDATIONS: 1. Continue the Ceftriaxone. 2. Monitor repeat blood culture. 3. Monitor clinical status. 4. Discontinue azithromycin. Consider tapering of steroids. Thank you for this consultation. The patient's progress will be monitored with you and further recommendations will be given upon followup if necessary. Delroy Bailey MD FD/JCJohann /2:46 PM /4:03 PM REINALDO
[2017-04-13] MEDS: ASPIRIN EC 81 MG TABEC PO SCH (21:00)
[2017-04-13] MEDS: INSULIN DETEMIR 100 UNITS/ML VIAL SQ SCH (21:00)
[2017-04-13] MEDS ORDERED: risperiDONE 0.5 MG TAB PO SCH (21:00)
[2017-04-14] VITALS (9 sets, daily range): BP systolic 121–184; BP diastolic 60–79; PULSE 48–77; RESP 16–20; TEMP 97.1–99; O2SAT 93–98
[2017-04-14] MEDS: cefTRIAXone INJ 2,000 MG in SODIUM CHLORIDE 0.9% INJ 100 ML IV SCH (03:01)
[2017-04-14] MEDS: ASPIRIN EC 81 MG TABEC PO SCH (03:14)
[2017-04-14] MEDS: METOPROLOL TARTRATE 100 MG TAB PO SCH ×2 (03:15→08:55)
[2017-04-14] MEDS: APIXABAN 5 MG TABLET PO SCH ×3 (03:15→21:09)
[2017-04-14] MEDS: FAMOTIDINE 20 MG TAB PO SCH ×3 (03:15→21:09)
[2017-04-14] MEDS: SACUBITRIL/VALSARTAN 97 MG-103 MG TAB PO SCH ×3 (03:15→21:10)
[2017-04-14] MEDS: DEXAMETHASONE SOD PHOS 20 MG/5 ML VIAL IV PUSH SCH ×2 (04:19→21:15)
[2017-04-14] MEDS: INSULIN ASPART SUPPLEMENTAL SCALE SQ SCH ×5 (08:00→21:27)
[2017-04-14] MEDS ORDERED: cloNIDine HCL 0.1 MG TAB PO PRN (08:15)
[2017-04-14] MEDS: AMIODARONE 200 MG TAB PO SCH (08:40)
[2017-04-14] MEDS: FUROSEMIDE 40 MG TAB PO SCH (08:55)
[2017-04-14] MEDS: ATORVASTATIN 40 MG TAB PO SCH (08:55)
[2017-04-14] MEDS: DOCUSATE SODIUM 50 MG/SENNA 8.6 MG TAB PO SCH ×2 (08:55→21:09)
[2017-04-14] MEDS: amLODIPine BESYLATE 5 MG TAB PO SCH (08:55)
[2017-04-14] MEDS: PARoxetine HCL 20 MG TAB PO SCH (08:56)
[2017-04-14] MEDS: POTASSIUM CHLORIDE 20 MEQ CONTROLLED RELEASE TAB PO SCH (08:56)
[2017-04-14] MEDS: SODIUM CHLORIDE 0.9% FLUSH 10 ML FLUSH IV FLUSH SCH ×2 (08:57→21:21)
[2017-04-14] MEDS: CLOPIDOGREL 75 MG TAB PO SCH (08:58)
--- NOTE | 2017-04-14 10:19 | HHI.PR ---
Subjective Remarks Follow-up for pneumococcal bacteremia, acute delirium. Patient is resting in bed. Remains confused. He periodically follows commands appropriately and also answers questions appropriately. Afebrile. Yesterday patient's was concerned about possible vision loss. Objective Vitals Vital Signs Date Time Temp Pulse Resp B/P (MAP) Pulse Ox O2 Delivery O2 Flow Rate FiO2 04/14/17 08:42 Nasal Cannula 2.00 04/14/17 08:12 97.5 48 16 121/60 (80) 96 04/14/17 04:00 97.9 59 18 158/69 (98) 98 04/14/17 03:04 98.0 68 16 184/67 (106) 98 04/14/17 01:00 99.0 53 20 131/62 (85) 95 04/13/17 20:45 98 Nasal Cannula 2.00 04/13/17 20:00 98.2 59 18 116/57 (76) 100 04/13/17 19:57 93 21 04/13/17 18:13 54 04/13/17 16:12 97 Nasal Cannula 2.00 04/13/17 15:56 97.4 69 20 165/75 (105) 96 04/13/17 13:58 51 133/72 (92) 04/13/17 11:37 98.1 59 20 101/57 (72) 96 I/O 04/13/17 04/13/17 04/13/17 04/14/17 04/14/17 04/14/17 07:00 15:00 23:00 07:00 15:00 23:00 Intake Total 450 ml 480 ml Balance 450 ml 480 ml Intake Oral 480 ml IV Total 450 ml # Voids 2 4 # Bowel Movements 0 1 Result Diagram: 04/12/17 0702 04/11/17 1645 Imaging Last Impressions Brain MRI 04/13/17 0000 Signed Impressions: Service Date/Time: Thursday, April 13, 2017 09:13 - CONCLUSION: 1. No acute hemorrhage, mass or infarction. 2. Mild chronic small vessel ischemic changes again noted. Tom Rosas MD Chest X-Ray 04/09/17 1343 Signed Impressions: Service Date/Time: Sunday, April 09, 2017 14:24 - CONCLUSION: New nodular parenchymal consolidation involving the left lung. Infectious etiology is suspected. Follow up studies to document resolution are needed. Maxwell Stringer Jr., MD Objective Remarks GENERAL: Alert, NAD. SKIN: Warm and dry. HEAD: Normocephalic. EYES: No scleral icterus. No injection or drainage. NECK: Supple, trachea midline. No JVD or lymphadenopathy. CARDIOVASCULAR: Regular rate and rhythm without murmurs, gallops, or rubs. RESPIRATORY: Breath sounds equal bilaterally. No accessory muscle use. GASTROINTESTINAL: Abdomen soft, non-tender, nondistended. MUSCULOSKELETAL: No cyanosis, or edema. Neurology: No focal deficits. CN II-XII appears to be grossly intact. Follows commands. BACK: Nontender without obvious deformity. No CVA tenderness. Procedures EEG 04/14/2017 Just diffuse slowing which could be medication effect could be consistent with a mild diffuse encephalopathy but no focal abnormalities noted. No seizure activity was seen. A/P Problem List: (1) Pneumonia ICD Code: J18.9 - Pneumonia, unspecified organism Status: Acute (2) COPD with acute exacerbation ICD Code: J44.1 - Chronic obstructive pulmonary disease with (acute) exacerbation Status: Acute (3) Pneumococcal bacteremia ICD Code: R78.81 - Bacteremia Assessment and Plan Mr. Sanchez is a 71-year-old male with a history of hypertension, diabetes mellitus, CAD, atrial fibrillation who presented to the emergency department on 04/09/2017 due to shortness of breath. He developed acute delirium while in the hospital. - Acute delirium - Unknown etiology. - We suspect being out of the home environment, baseline dementia and pneumonia with bacteremia are all contributing factors. - MRI brain shows no acute hemorrhage, mass or infarction. - Will check Folate, vitamin B12, Methylmalonic acid level. - Pneumococcal bacteremia - Patient was initiated on pneumococcal meningitis treatment. However, his symptoms were not very concerning for meningitis. - Per ID recommendations, we will continue Ceftriaxone. Azithromycin discontinued. - Community-acquired pneumonia - Acute COPD exacerbation - Continue ceftriaxone 2 g every 24 hours - Currently on dexamethasone 10 mg Q12hrs. We will wean off within a day or two. - Continue breathing treatments scheduled and when necessary. - Supplemental oxygen to keep O2 sat above 90%. - Acute kidney injury - Creatinine 1.26 --> 1.46. - Possibly pre-renal. Will start patient on IV NS @ 100cc/hour. - Hold Lasix - Coronary artery disease - Atrial fibrillation - Patient has had 6 stent placements including last one being within last 2- 3 weeks. - Currently on apixaban 5 mg twice a day, aspirin, Plavix - Continue amiodarone 200 mg daily, atorvastatin 40 mg daily - Reduce metoprolol from 100mg BID to 25mg BID. - Hold Lasix. - Continue Entresto 97-103mg. - Hypertension - Continue Amlodipine 5mg Qday. - Diabetes mellitus - Discontinue glipizide. - Levemir 12 units daily at bedtime and continue sliding scale insulin. Full code. Apixaban. Problem Qualifiers (1) Pneumonia: Qualified Codes: J18.9 - Pneumonia, unspecified organism Pauline Salter DO Apr 14, 2017 10:19 am
--- NOTE | 2017-04-14 10:23 | MG ---
cc: MEGHANA MACHADO M.D. Lab No: Date: 04/14/2017 Age: 71 Sex: M Race: REASON FOR PROCEDURE: Hyperventilation not performed. HISTORY: A 71-year-old man with chronic obstructive pulmonary disease, sleep apnea, norvasc, Risperdal, Lipitor, Paxil, Eliquis hitting his . RECORDING: Diffuse low amplitude theta slowing is seen without see any hemisphere asymmetry. No epileptiform or seizure activity is noted, almost down to low amplitude 4 Hz rhythm is seen. This could be medication effect. Photic stimulation was performed without significant posterior driving. IMPRESSION Just diffuse slowing which could be medication effect could be consistent with a mild diffuse encephalopathy but no focal abnormalities noted. No seizure activity was seen. MD EJ Cheek/kenya /9:55 AM /10:25 AM
--- NOTE | 2017-04-14 11:21 | HHI.IDPN ---
Subjective Subjective Remarks 71 year old male admitted with SOB. Has known COPD. Found to have pneumonia on the left, and pneumococcal bacteremia. Patient seemed to have underlying dementia Notes reviewed He is afebrile States he gets short of breath at night Currently on room air His very poor historian, and confused States he is coughing, but not bringing up any phlegm No chest pain MRI of the brain without contrast no acute finding Antibiotics Rocephin Lines PIV Past Medical History 1. Hypertension. 2. Hyperlipidemia. 3. COPD. 4. Atrial fibrillation. 5. Congestive heart failure. 6. Diabetes mellitus type 2. 7. Hypothyroidism. 8. Alzheimer's disease. 9. Coronary artery disease. 10. History of myocardial infarction. 11. History of coronary stents. 12. Inguinal hernia repair. Allergies: Coded Allergies: enoxaparin (Verified Allergy, Severe, THROMBOCYTOPENIA, 04/09/17) heparin (porcine) (Verified Allergy, Severe, THROMBOCYTOPENIA, 04/09/17) hydrochlorothiazide (Verified Allergy, Mild, 04/09/17) RASH Objective . Vital Signs Date Time Temp Pulse Resp B/P (MAP) Pulse Ox O2 Delivery O2 Flow Rate FiO2 04/14/17 08:42 Nasal Cannula 2.00 04/14/17 08:12 97.5 48 16 121/60 (80) 96 04/14/17 04:00 97.9 59 18 158/69 (98) 98 04/14/17 03:04 98.0 68 16 184/67 (106) 98 04/14/17 01:00 99.0 53 20 131/62 (85) 95 04/13/17 20:45 98 Nasal Cannula 2.00 04/13/17 20:00 98.2 59 18 116/57 (76) 100 04/13/17 19:57 93 21 04/13/17 18:13 54 04/13/17 16:12 97 Nasal Cannula 2.00 04/13/17 15:56 97.4 69 20 165/75 (105) 96 04/13/17 13:58 51 133/72 (92) 04/13/17 11:37 98.1 59 20 101/57 (72) 96 . Microbiology Date/Time Source Procedure Growth Status 04/12/17 07:07 Blood Peripheral Aerobic Blood Culture - Preliminary NO GROWTH IN 2 DAYS Resulted 04/12/17 07:07 Blood Peripheral Anaerobic Blood Culture - Preliminary NO GROWTH IN 2 DAYS Resulted 04/12/17 07:02 Blood Peripheral Aerobic Blood Culture - Preliminary NO GROWTH IN 2 DAYS Resulted 04/12/17 07:02 Blood Peripheral Anaerobic Blood Culture - Preliminary NO GROWTH IN 2 DAYS Resulted Imaging RADIOLOGY STUDIES/FILMS REVIEWED Last Impressions Brain MRI 04/13/17 0000 Signed Impressions: Service Date/Time: Thursday, April 13, 2017 09:13 - CONCLUSION: 1. No acute hemorrhage, mass or infarction. 2. Mild chronic small vessel ischemic changes again noted. Tom Rosas MD Chest X-Ray 04/09/17 1343 Signed Impressions: Service Date/Time: Sunday, April 09, 2017 14:24 - CONCLUSION: New nodular parenchymal consolidation involving the left lung. Infectious etiology is suspected. Follow up studies to document resolution are needed. Maxwell Stringer Jr., MD Physical Exam GENERAL: Awake and alert, sitting up in the bench, confused, not in respiratory distress. SKIN: Cool and dry, no generalized rash HEAD, EYES, EARS, NOSE, THROAT: The head is atraumatic. EOM full and intact. No scleral icterus. No injection. No petechia or hemorrhage. Moist oral mucosa. No nasal discharge. No sinus tenderness NECK: The neck is supple without adenopathy. LUNGS: Decreased breath sounds bilaterally, no wheezing noted . HEART: Regular. S1 and S2 without audible murmurs. ABDOMEN: Soft, no tenderness appreciated. No guarding. Not distended. EXTREMITIES: No clubbing or cyanosis or edema. The patient has ecchymotic lesions at the upper extremities. No calf tenderness. NEUROLOGIC: Cranial nerves grossly intact. Motor strength equal. He is awake and alert, but is confused. Gave me the wrong age, the wrong year, does not know her he is. PSYCHIATRIC: Calm and cooperative LINE: PIV with no evidence of infection Assessment & Plan Remarks IMPRESSION Pneumococcal sepsis due to PNA Pneumonia Known COPD, excarbation Known dementia Clinically no evidence of meningitis RECOMMENDATION Continue Rocephin, but decrease the dose to bacteremia dose Follow culture Monitor progress D/W Carolyn Link MD Apr 14, 2017 11:21
[2017-04-14] MEDS: METOPROLOL TARTRATE 25 MG TAB PO SCH (21:10)
[2017-04-14] MEDS: INSULIN DETEMIR 100 UNITS/ML VIAL SQ SCH (21:31)
[2017-04-15] VITALS: BP 167/80; PULSE 81; RESP 18; TEMP 98.7; O2SAT 94
[2017-04-15 04:00] VITALS: PULSE 84; RESP 18; TEMP 97.5; O2SAT 95
[2017-04-15] MEDS: cefTRIAXone INJ 2,000 MG in SODIUM CHLORIDE 0.9% INJ 100 ML IV SCH (04:00)
[2017-04-15] MEDS: LORazepam 0.5 MG TAB PO PRN (04:15)
[2017-04-15] MEDS ORDERED: HALOPERIDOL LACTATE 5 MG/ML AMP IM ONE (05:15)
[2017-04-15] MEDS: SODIUM CHLOR 0.9% 1000 ML INJ 1,000 ML IV SCH ×2 (07:48→16:15)
[2017-04-15 07:56] VITALS: BP 125/70; PULSE 110; RESP 18; TEMP 98.1; O2SAT 93
[2017-04-15 08:23] LABS: AUTOMATED NEUTROPHIL # 10.9 TH/MM3 (1.8-7.7); BASOPHIL % 0.1 % (0.0-2.0); HEMATOCRIT 38.7 % (39.0-51.0); HEMO FLAGS DIFF FINAL; LYMPH % 1.9 % (9.0-44.0); LYMPHOCYTE # 0.2 TH/MM3 (1.0-4.8); MEAN CELL VOLUME 94.8 FL (80.0-100.0); MEAN CORPUSCULAR HEMOGLOBIN 32.1 PG (27.0-34.0); MEAN CORPUSCULAR HGB CONC 33.9 % (32.0-36.0); MONO % 4.9 % (0.0-8.0); NEUT % 93.1 % (16.0-70.0); PLATELET COUNT 191 TH/MM3 (150-450); RED BLOOD COUNT 4.08 MIL/MM3 (4.50-5.90); RED CELL DISTRIBUTION WIDTH 13.6 % (11.6-17.2); WHITE BLOOD COUNT 11.7 TH/MM3 (4.0-11.0)
[2017-04-15 08:37] LABS: BICARBONATE 26.7 MEQ/L (21.0-32.0); POTASSIUM 3.6 MEQ/L (3.5-5.1)
[2017-04-15] MEDS: DEXAMETHASONE SOD PHOS 20 MG/5 ML VIAL IV PUSH SCH (09:00)
[2017-04-15] MEDS: SODIUM CHLORIDE 0.9% FLUSH 10 ML FLUSH IV FLUSH SCH ×2 (09:00→21:00)
[2017-04-15] MEDS: POTASSIUM CHLORIDE 20 MEQ CONTROLLED RELEASE TAB PO SCH (09:29)
[2017-04-15] MEDS: CLOPIDOGREL 75 MG TAB PO SCH (09:29)
[2017-04-15] MEDS: METOPROLOL TARTRATE 25 MG TAB PO SCH (09:30)
[2017-04-15] MEDS: DOCUSATE SODIUM 50 MG/SENNA 8.6 MG TAB PO SCH ×2 (09:30→22:08)
[2017-04-15] MEDS: FAMOTIDINE 20 MG TAB PO SCH ×2 (09:30→22:08)
[2017-04-15] MEDS: ATORVASTATIN 40 MG TAB PO SCH (09:30)
[2017-04-15] MEDS: SACUBITRIL/VALSARTAN 97 MG-103 MG TAB PO SCH ×2 (09:30→22:09)
[2017-04-15] MEDS: amLODIPine BESYLATE 5 MG TAB PO SCH (09:30)
[2017-04-15] MEDS: AMIODARONE 200 MG TAB PO SCH (09:30)
[2017-04-15] MEDS: APIXABAN 5 MG TABLET PO SCH ×2 (09:30→22:08)
[2017-04-15] MEDS: PARoxetine HCL 20 MG TAB PO SCH (09:31)
[2017-04-15] MEDS: INSULIN ASPART SUPPLEMENTAL SCALE SQ SCH ×5 (09:33→21:00)
--- NOTE | 2017-04-15 11:19 | HHI.PR ---
Objective Vital Signs Date Time Temp Pulse Resp B/P (MAP) Pulse Ox O2 Delivery O2 Flow Rate FiO2 04/15/17 10:01 Room Air 04/15/17 07:56 98.1 110 18 125/70 (88) 93 04/15/17 04:00 97.5 84 18 95 04/15/17 00:00 98.7 81 18 167/80 (109) 94 04/14/17 21:22 64 04/14/17 21:10 Nasal Cannula 2.00 04/14/17 20:00 97.2 77 20 161/70 (100) 93 04/14/17 17:45 97.5 68 18 183/79 (113) 96 04/14/17 14:10 97.1 65 18 156/71 (99) 93 I/O 04/14/17 04/14/17 04/14/17 04/15/17 04/15/17 04/15/17 07:00 15:00 23:00 07:00 15:00 23:00 Intake Total 480 ml Balance 480 ml Intake Oral 480 ml # Voids 4 6 6 # Bowel Movements 1 Result Diagram: 04/15/17 0758 04/15/17 0758 Objective Remarks awake vff face sym follows commands not place or yr 5/5 t/o alert occ seems to make slight paraphasic errors Assessment and Plan Assessment and Plan imp mri nl eeg nl b12 nl i dw he has 9 month of sign stm loss and likely developing early AD check nh3 abg some other dementia labs and Alf Corona am, MD Apr 15, 2017 11:19
--- NOTE | 2017-04-15 11:48 | HHI.IDPN ---
Subjective Subjective Remarks 71 year old male admitted with SOB. Has known COPD. Found to have pneumonia on the left, and pneumococcal bacteremia. Patient seemed to have underlying dementia Notes reviewed D/W RN He is afebrile Remains confused Refusing vital signs and Accu-Cheks MRI of the brain without contrast no acute finding Antibiotics Rocephin Lines PIV Past Medical History 1. Hypertension. 2. Hyperlipidemia. 3. COPD. 4. Atrial fibrillation. 5. Congestive heart failure. 6. Diabetes mellitus type 2. 7. Hypothyroidism. 8. Alzheimer's disease. 9. Coronary artery disease. 10. History of myocardial infarction. 11. History of coronary stents. 12. Inguinal hernia repair. Allergies: Coded Allergies: enoxaparin (Verified Allergy, Severe, THROMBOCYTOPENIA, 04/09/17) heparin (porcine) (Verified Allergy, Severe, THROMBOCYTOPENIA, 04/09/17) hydrochlorothiazide (Verified Allergy, Mild, 04/09/17) RASH Objective . Vital Signs Date Time Temp Pulse Resp B/P (MAP) Pulse Ox O2 Delivery O2 Flow Rate FiO2 04/15/17 10:01 Room Air 04/15/17 07:56 98.1 110 18 125/70 (88) 93 04/15/17 04:00 97.5 84 18 95 04/15/17 00:00 98.7 81 18 167/80 (109) 94 04/14/17 21:22 64 04/14/17 21:10 Nasal Cannula 2.00 04/14/17 20:00 97.2 77 20 161/70 (100) 93 04/14/17 17:45 97.5 68 18 183/79 (113) 96 04/14/17 14:10 97.1 65 18 156/71 (99) 93 . Laboratory Tests Test 04/15/17 07:58 White Blood Count 11.7 TH/MM3 Red Blood Count 4.08 MIL/MM3 Hemoglobin 13.1 GM/DL Hematocrit 38.7 % Mean Corpuscular Volume 94.8 FL Mean Corpuscular Hemoglobin 32.1 PG Mean Corpuscular Hemoglobin Concent 33.9 % Red Cell Distribution Width 13.6 % Platelet Count 191 TH/MM3 Mean Platelet Volume 9.0 FL Neutrophils (%) (Auto) 93.1 % Lymphocytes (%) (Auto) 1.9 % Monocytes (%) (Auto) 4.9 % Eosinophils (%) (Auto) 0.0 % Basophils (%) (Auto) 0.1 % Neutrophils # (Auto) 10.9 TH/MM3 Lymphocytes # (Auto) 0.2 TH/MM3 Monocytes # (Auto) 0.6 TH/MM3 Eosinophils # (Auto) 0.0 TH/MM3 Basophils # (Auto) 0.0 TH/MM3 CBC Comment DIFF FINAL Differential Comment Laboratory Tests Test 04/14/17 11:32 04/15/17 07:58 Vitamin B12 Level 1085 PG/ML Folate 12.2 NG/ML Blood Urea Nitrogen 54 MG/DL Creatinine 1.22 MG/DL Random Glucose 238 MG/DL Calcium Level 7.9 MG/DL Sodium Level 139 MEQ/L Potassium Level 3.6 MEQ/L Chloride Level 103 MEQ/L Carbon Dioxide Level 26.7 MEQ/L Anion Gap 9 MEQ/L Estimat Glomerular Filtration Rate 59 ML/MIN Imaging RADIOLOGY STUDIES/FILMS REVIEWED Last Impressions Brain MRI 04/13/17 0000 Signed Impressions: Service Date/Time: Thursday, April 13, 2017 09:13 - CONCLUSION: 1. No acute hemorrhage, mass or infarction. 2. Mild chronic small vessel ischemic changes again noted. Tom Rosas MD Chest X-Ray 04/09/17 1343 Signed Impressions: Service Date/Time: Sunday, April 09, 2017 14:24 - CONCLUSION: New nodular parenchymal consolidation involving the left lung. Infectious etiology is suspected. Follow up studies to document resolution are needed. Maxwell Stringer Jr., MD Physical Exam GENERAL: Awake and alert, confused, not in respiratory distress. SKIN: Cool and dry, no generalized rash HEAD, EYES, EARS, NOSE, THROAT: The head is atraumatic. EOM full and intact. No scleral icterus. No injection. No petechia or hemorrhage. Moist oral mucosa. No nasal discharge. No sinus tenderness NECK: The neck is supple without adenopathy. LUNGS: Decreased breath sounds bilaterally, no wheezing noted . HEART: Regular. S1 and S2 without audible murmurs. ABDOMEN: Soft, no tenderness appreciated. No guarding. Not distended. EXTREMITIES: No clubbing or cyanosis or edema. The patient has ecchymotic lesions at the upper extremities. No calf tenderness. NEUROLOGIC: Cranial nerves grossly intact. Motor strength equal. He is awake and alert, but is confused. PSYCHIATRIC: Not cooperating with VS and accuchecks LINE: PIV with no evidence of infection Assessment & Plan Remarks IMPRESSION Pneumococcal sepsis due to PNA Pneumonia Known COPD, excarbation Known dementia Clinically no evidence of meningitis RECOMMENDATION Continue Rocephin Follow culture Monitor progress ?Psych eval for Rx D/W RN Dr Olson back in AM to resume care Carolyn Baugh MD Apr 15, 2017 11:48
--- NOTE | 2017-04-15 12:11 | HHI.PR ---
Subjective Remarks Follow-up for pneumococcal bacteremia, acute delirium. Patient is resting in bed. Remains confused. Incoherent speech. Denies any fever, chills. Objective Vitals Vital Signs Date Time Temp Pulse Resp B/P (MAP) Pulse Ox O2 Delivery O2 Flow Rate FiO2 04/15/17 10:01 Room Air 04/15/17 07:56 98.1 110 18 125/70 (88) 93 04/15/17 04:00 97.5 84 18 95 04/15/17 00:00 98.7 81 18 167/80 (109) 94 04/14/17 21:22 64 04/14/17 21:10 Nasal Cannula 2.00 04/14/17 20:00 97.2 77 20 161/70 (100) 93 04/14/17 17:45 97.5 68 18 183/79 (113) 96 04/14/17 14:10 97.1 65 18 156/71 (99) 93 I/O 04/14/17 04/14/17 04/14/17 04/15/17 04/15/17 04/15/17 07:00 15:00 23:00 07:00 15:00 23:00 Intake Total 480 ml Balance 480 ml Intake Oral 480 ml # Voids 4 6 6 # Bowel Movements 1 Result Diagram: 04/15/17 0758 04/15/17 0758 Imaging Last Impressions Brain MRI 04/13/17 0000 Signed Impressions: Service Date/Time: Thursday, April 13, 2017 09:13 - CONCLUSION: 1. No acute hemorrhage, mass or infarction. 2. Mild chronic small vessel ischemic changes again noted. Tom Rosas MD Chest X-Ray 04/09/17 1343 Signed Impressions: Service Date/Time: Sunday, April 09, 2017 14:24 - CONCLUSION: New nodular parenchymal consolidation involving the left lung. Infectious etiology is suspected. Follow up studies to document resolution are needed. Maxwell Stringer Jr., MD Objective Remarks GENERAL: Alert, NAD. SKIN: Warm and dry. HEAD: Normocephalic. EYES: No scleral icterus. No injection or drainage. NECK: Supple, trachea midline. No JVD or lymphadenopathy. CARDIOVASCULAR: Regular rate and rhythm without murmurs, gallops, or rubs. RESPIRATORY: Breath sounds equal bilaterally. No accessory muscle use. GASTROINTESTINAL: Abdomen soft, non-tender, nondistended. MUSCULOSKELETAL: No cyanosis, or edema. Neurology: No focal deficits. CN II-XII appears to be grossly intact. Follows commands inconsistently. BACK: Nontender without obvious deformity. No CVA tenderness. Procedures EEG 04/14/2017 Just diffuse slowing which could be medication effect could be consistent with a mild diffuse encephalopathy but no focal abnormalities noted. No seizure activity was seen. A/P Problem List: (1) Pneumonia ICD Code: J18.9 - Pneumonia, unspecified organism Status: Acute (2) COPD with acute exacerbation ICD Code: J44.1 - Chronic obstructive pulmonary disease with (acute) exacerbation Status: Acute (3) Pneumococcal bacteremia ICD Code: R78.81 - Bacteremia Assessment and Plan Mr. Sanchez is a 71-year-old male with a history of hypertension, diabetes mellitus, CAD, atrial fibrillation who presented to the emergency department on 04/09/2017 due to shortness of breath. He developed acute delirium while in the hospital. - Acute delirium - Dementia - Unknown etiology of delirium. - We suspect being out of the home environment, baseline dementia and pneumonia with bacteremia are all contributing factors. - MRI brain shows no acute hemorrhage, mass or infarction. - Folate 12.2 , vitamin B12 1085. - Pneumococcal bacteremia - Patient was initiated on pneumococcal meningitis treatment. However, his symptoms were not very concerning for meningitis. - Per ID recommendations, we will continue Ceftriaxone. Azithromycin discontinued. - Community-acquired pneumonia - Acute COPD exacerbation - Continue ceftriaxone 2 g every 24 hours - Currently on dexamethasone 10 mg Q12hrs. Will d/c dexamethasone. - Continue breathing treatments scheduled and when necessary. - Supplemental oxygen to keep O2 sat above 90%. - Acute kidney injury - Creatinine 1.26 --> 1.46 --> 1.22. - Continue patient on IV NS @ 100cc/hour. - Hold Lasix - Coronary artery disease - Atrial fibrillation - Patient has had 6 stent placements including last one being within last 2- 3 weeks. - Currently on apixaban 5 mg twice a day, aspirin, Plavix - Continue amiodarone 200 mg daily, atorvastatin 40 mg daily - Increase Metoprolol to 50 BID. - Hold Lasix. - Continue Entresto 97-103mg. - Hypertension - Continue Amlodipine 5mg Qday. - Diabetes mellitus - Discontinue glipizide. - Levemir 15 units daily at bedtime and continue sliding scale insulin. Full code. Apixaban. Problem Qualifiers (1) Pneumonia: Qualified Codes: J18.9 - Pneumonia, unspecified organism Pauline Salter DO Apr 15, 2017 12:10 pm
[2017-04-15] MEDS: MEMANTINE HCL 5 MG TAB PO SCH (12:35)
[2017-04-15] MEDS: RESP: ALBUTEROL 2.5 MG/IPRATROPIUM 0.5 MG NEB (PRN) NEB ×2 (15:56→20:38)
[2017-04-15 17:44] VITALS: BP 112/75; PULSE 122; RESP 18; TEMP 97.1; O2SAT 95
[2017-04-15 20:00] VITALS: BP 147/75; PULSE 101; RESP 20; TEMP 97.1; O2SAT 97
[2017-04-15] MEDS ORDERED: INSULIN DETEMIR 100 UNITS/ML VIAL SQ SCH (21:00)
[2017-04-15] MEDS: METOPROLOL TARTRATE 50 MG TAB PO SCH (22:08)
[2017-04-15] MEDS: ASPIRIN EC 81 MG TABEC PO SCH (22:09)
[2017-04-16 01:00] VITALS: BP 133/68; PULSE 98; RESP 18; TEMP 97.4; O2SAT 95
[2017-04-16] MEDS: SODIUM CHLOR 0.9% 1000 ML INJ 1,000 ML IV SCH ×2 (03:12→11:21)
[2017-04-16] MEDS: cefTRIAXone INJ 2,000 MG in SODIUM CHLORIDE 0.9% INJ 100 ML IV SCH (03:13)
[2017-04-16 04:00] VITALS: BP 129/71; PULSE 81; RESP 18; TEMP 97.5; O2SAT 96
[2017-04-16 08:02] VITALS: BP 160/96; PULSE 120; RESP 18; TEMP 98; O2SAT 98
[2017-04-16] MEDS: ATORVASTATIN 40 MG TAB PO SCH (08:45)
[2017-04-16] MEDS: DOCUSATE SODIUM 50 MG/SENNA 8.6 MG TAB PO SCH (08:45)
[2017-04-16] MEDS: FAMOTIDINE 20 MG TAB PO SCH (08:45)
[2017-04-16] MEDS: MEMANTINE HCL 5 MG TAB PO SCH (08:45)
[2017-04-16] MEDS: SACUBITRIL/VALSARTAN 97 MG-103 MG TAB PO SCH (08:46)
[2017-04-16] MEDS: AMIODARONE 200 MG TAB PO SCH (08:46)
[2017-04-16] MEDS: METOPROLOL TARTRATE 50 MG TAB PO SCH (08:46)
[2017-04-16] MEDS: PARoxetine HCL 20 MG TAB PO SCH (08:46)
[2017-04-16] MEDS: CLOPIDOGREL 75 MG TAB PO SCH (08:46)
[2017-04-16] MEDS: APIXABAN 5 MG TABLET PO SCH (08:46)
[2017-04-16] MEDS: amLODIPine BESYLATE 5 MG TAB PO SCH (08:46)
[2017-04-16] MEDS: INSULIN ASPART SUPPLEMENTAL SCALE SQ SCH ×2 (08:47→11:59)
[2017-04-16] MEDS: SODIUM CHLORIDE 0.9% FLUSH 10 ML FLUSH IV FLUSH SCH (08:48)
[2017-04-16] MEDS ORDERED: POTASSIUM CHLORIDE 20 MEQ PWD PACKET NG SCH (10:00)
[2017-04-16] MEDS ORDERED: ARTIFICIAL TEARS OPTH SOLN 15 ML BTL RIGHT EYE PRN (11:00)
--- NOTE | 2017-04-16 11:38 | HHI.IDPN ---
Note Infectious Disease Note Patient is sitting at desk at nursing station. Says he feels okay. Confused but awake and pleasant. Oriented to person only. No distress. RN reports that he pulls out his IVs. PAST MEDICAL HISTORY: 1. Hypertension. 2. Hyperlipidemia. 3. COPD. 4. Atrial fibrillation. 5. Congestive heart failure. 6. Diabetes mellitus type 2. 7. Hypothyroidism. 8. Alzheimer's disease. 9. Coronary artery disease. 10. History of myocardial infarction. 11. History of coronary stents. 12. Inguinal hernia repair. ALLERGIES: 1. HYDROCHLOROTHIAZIDE. 2. HEPARIN. 3. ENOXAPARIN. Current Medications Medications (Trade) Dose Ordered Sig/Heber Route PRN Reason Start Time Stop Time Status Last Admin Dose Admin Sodium Chloride (NS Flush) 2 ml UNSCH PRN IV FLUSH FLUSH AFTER USING IV ACCESS 04/09/17 16:00 04/12/17 05:58 Sodium Chloride (NS Flush) 2 ml BID IV FLUSH 04/09/17 21:00 04/16/17 08:48 Albuterol/ Ipratropium (Duoneb Neb) 1 ampule Q2HR NEB PRN NEB wheezing 04/09/17 16:00 04/15/17 20:38 Amiodarone HCl (Cordarone) 200 mg DAILY PO 04/10/17 09:00 04/16/17 08:46 Apixaban (Eliquis) 5 mg BID PO 04/09/17 21:00 04/16/17 08:46 Aspirin (Ecotrin Ec) 81 mg HS PO 04/09/17 21:00 04/15/17 22:09 Clopidogrel Bisulfate (Plavix) 75 mg DAILY PO 04/10/17 09:00 04/16/17 08:46 Furosemide (Lasix) 40 mg DAILY PO 04/10/17 09:00 Future Hold 04/14/17 08:55 Sacubitril/ Valsartan (Entresto 97-103 Mg) 1 tab BID PO 04/09/17 21:00 04/16/17 08:46 Paroxetine HCl (Paxil) 10 mg DAILY PO 04/10/17 09:00 04/16/17 08:46 Atorvastatin Calcium (Lipitor) 40 mg DAILY PO 04/10/17 09:00 04/16/17 08:45 Patient Own Medication PT OWN MED:STIOLTA RESPI... DAILY INH 04/10/17 09:00 Future Hold Miscellaneous (Pill Splitter) 1 ea UNSCH PRN OTHER SEE LABEL COMMENTS 04/09/17 21:45 Dextrose (D50w (Vial) Inj) 50 ml UNSCH PRN IV PUSH HYPOGLYCEMIA-SEE COMMENTS 04/10/17 05:30 Glucagon (Glucagon Inj) 1 mg UNSCH PRN OTHER HYPOGLYCEMIA-SEE COMMENTS 04/10/17 05:30 Insulin Aspart (NovoLOG SUPPLEMENTAL SCALE) 1 ACHS SLIDING SCALE SQ 04/10/17 08:00 04/16/17 08:47 Acetaminophen (Tylenol) 650 mg Q4H PRN PO TEMP > 100.4 04/10/17 05:30 Ondansetron HCl (Zofran Inj) 4 mg Q6H PRN IVP NAUSEA OR VOMITING 04/10/17 05:30 Acetaminophen (Tylenol) 650 mg Q6H PRN PO PAIN SCALE 1 TO 2 04/10/17 05:30 Naloxone HCl (Narcan Inj) 0.4 mg UNSCH PRN IV PUSH SEE LABEL COMMENTS 04/10/17 05:30 Senna/Docusate Sodium (Heavenly-Colace) 1 tab BID PO 04/10/17 09:00 04/16/17 08:45 Sennosides (Senokot) 17.2 mg Q12H PRN PO Moderate constipation 04/10/17 05:30 Bisacodyl (Dulcolax Supp) 10 mg DAILY PRN RECTAL SEVERE CONSITIPATION 04/10/17 05:30 Lactulose (Lactulose Liq) 30 ml DAILY PRN PO SEVERE CONSITIPATION 04/10/17 05:30 Lorazepam (Ativan) 0.5 mg Q8H PRN PO Extreme agitation 04/11/17 10:30 04/15/17 04:15 Amlodipine Besylate (Norvasc) 5 mg DAILY PO 04/13/17 09:00 04/16/17 08:46 Risperidone (risperDAL) 1 mg BID PO 04/13/17 21:00 Future Hold Clonidine (Catapres) 0.1 mg Q6H PRN PO SBP> OR = 180, DBP> OR = 100 04/14/17 08:15 Sodium Chloride 1,000 ml @ 100 mls/hr Q10H IV 04/14/17 10:15 04/16/17 03:12 Ceftriaxone Sodium 2000 mg/ Sodium Chloride 100 ml @ 200 mls/hr Q24H IV 04/15/17 03:00 04/16/17 03:13 Famotidine (Pepcid) 10 mg Q12HR PO 04/14/17 21:00 04/16/17 08:45 Memantine (Namenda) 5 mg DAILY PO 04/15/17 11:30 04/16/17 08:45 Metoprolol Tartrate (Lopressor) 50 mg BID PO 04/15/17 21:00 04/16/17 08:46 Insulin Detemir (Levemir Inj) 15 units HS SQ 04/15/17 21:00 04/15/17 22:10 Potassium Chloride (KCl Powder) 20 meq DAILY PO 04/17/17 09:00 Artificial Tears (Tears Naturale Opth Soln) 1 drop Q4H PRN RIGHT EYE DRY EYE 04/16/17 11:00 SOCIAL HISTORY: The patient is . No tobacco, no alcohol. No illicit drugs. OBJECTIVE: Vital Signs Date Time Temp Pulse Resp B/P (MAP) Pulse Ox O2 Delivery O2 Flow Rate FiO2 04/16/17 08:02 98.0 120 18 160/96 (117) 98 04/16/17 04:00 97.5 81 18 129/71 (90) 96 04/16/17 04:00 97.5 81 18 129/71 (90) 96 04/16/17 01:00 97.4 98 18 133/68 (89) 95 04/15/17 20:20 97 Room Air 04/15/17 20:00 97.1 101 20 147/75 (99) 97 04/15/17 17:44 97.1 122 18 112/75 (87) 95 Laboratory Tests Test 04/15/17 07:58 04/15/17 16:10 White Blood Count 11.7 TH/MM3 Red Blood Count 4.08 MIL/MM3 Hemoglobin 13.1 GM/DL Hematocrit 38.7 % Mean Corpuscular Volume 94.8 FL Mean Corpuscular Hemoglobin 32.1 PG Mean Corpuscular Hemoglobin Concent 33.9 % Red Cell Distribution Width 13.6 % Platelet Count 191 TH/MM3 Mean Platelet Volume 9.0 FL Neutrophils (%) (Auto) 93.1 % Lymphocytes (%) (Auto) 1.9 % Monocytes (%) (Auto) 4.9 % Eosinophils (%) (Auto) 0.0 % Basophils (%) (Auto) 0.1 % Neutrophils # (Auto) 10.9 TH/MM3 Lymphocytes # (Auto) 0.2 TH/MM3 Monocytes # (Auto) 0.6 TH/MM3 Eosinophils # (Auto) 0.0 TH/MM3 Basophils # (Auto) 0.0 TH/MM3 CBC Comment DIFF FINAL Differential Comment Erythrocyte Sedimentation Rate 20 mm/hr Laboratory Tests Test 04/15/17 07:58 04/15/17 16:00 04/15/17 16:10 Blood Urea Nitrogen 54 MG/DL Creatinine 1.22 MG/DL Random Glucose 238 MG/DL Calcium Level 7.9 MG/DL Sodium Level 139 MEQ/L Potassium Level 3.6 MEQ/L Chloride Level 103 MEQ/L Carbon Dioxide Level 26.7 MEQ/L Anion Gap 9 MEQ/L Estimat Glomerular Filtration Rate 59 ML/MIN Ammonia 19 MCMOL/L Folate 11.7 NG/ML Last Impressions Brain MRI 04/13/17 0000 Signed Impressions: Service Date/Time: Thursday, April 13, 2017 09:13 - CONCLUSION: 1. No acute hemorrhage, mass or infarction. 2. Mild chronic small vessel ischemic changes again noted. Tom Rosas MD Chest X-Ray 04/09/17 1343 Signed Impressions: Service Date/Time: Sunday, April 09, 2017 14:24 - CONCLUSION: New nodular parenchymal consolidation involving the left lung. Infectious etiology is suspected. Follow up studies to document resolution are needed. Maxwell Stringer Jr., MD PHYSICAL EXAMINATION: GENERAL: No acute distress. HEENT: The head is atraumatic. EOMI, MILKA. Ecchymosis at r conjunctive. No icterus. NECK: The neck is supple without adenopathy. LUNGS: Decreased clear breath sounds. HEART: Regular. S1 and S2 without audible murmurs. ABDOMEN: Soft, no tenderness appreciated. EXTREMITIES: No clubbing or cyanosis or edema. The patient has ecchymotic lesions at the upper extremities. SKIN: No diffuse rash. NEUROLOGIC: Non focal. IMPRESSION: 1. Pneumococcal bacteremia. 2. Pneumococcal pneumonia. 3. Altered mental status likely related to dementia. The mental status change is probably unrelated to the bacteremia in this patient who has reportedly a history of dementia. Stable from infection standpoint. RECOMMENDATIONS: Can discharge on PO Augmentin 875mg bid x [address] Salter. I will sign off now. Joseph Olson MD Apr 16, 2017 11:38
[2017-04-16 11:54] VITALS: BP 191/92; PULSE 102; RESP 18; TEMP 97.8; O2SAT 97
[2017-04-16 13:26] LABS: ANA SCREEN NEG (NEG)
[2017-04-16] MEDS ORDERED: METO-309 PO (13:34)
[2017-04-16] MEDS ORDERED: AMLO5 PO (13:34)
[2017-04-16] MEDS ORDERED: NAME5TAB2 PO ×2 (13:34→13:37)
[2017-04-16] MEDS ORDERED: SERO25TA PO (13:38)
[2017-04-16] MEDS ORDERED: AUGM875T3 PO (13:39)
--- NOTE | 2017-04-16 15:34 | HHI.FF ---
Face to Face Verification Diagnosis: (1) Pneumonia (2) Unspecified psychosis Physical Therapy Order: Evaluate and Treat, Improve ambulation, Strength and gait training Occupational Therapy Order: Evaluate and Treat Home Health Nursing Order: Medical education Signs/symptoms of disease process Nursing assessment with vital signs I have seen patient Veto Thrasher Forward on 04/16/17. My clinical findings support the need for the requested home health care services because: Ltd mobility - disease progression Deconditioned w/ increased weakness Limited ability to care for self Need for psychosocial assistance Infection w/ risk of complications I certify that my clinical findings support that this patient is homebound because: Impaired cognitive ability/safety Unsteady gait/balance Unsafe to leave home unassisted Unable to use public transportation Nic Mauro Apr 16, 2017 15:34 Pauline Salter DO Apr 16, 2017 16:10
--- NOTE | 2017-04-16 20:14 | HHI.DS ---
Discharge Summary Admission Date Apr 10, 2017 at 11:34 Discharge Date: Apr 16, 2017 Admitting Diagnosis pneumonia, COPD exacerbation (1) Pneumonia ICD Code: J18.9 - Pneumonia, unspecified organism Status: Acute (2) COPD with acute exacerbation ICD Code: J44.1 - Chronic obstructive pulmonary disease with (acute) exacerbation Status: Acute (3) Pneumococcal bacteremia ICD Code: R78.81 - Bacteremia Procedures EEG 04/14/2017 Just diffuse slowing which could be medication effect could be consistent with a mild diffuse encephalopathy but no focal abnormalities noted. No seizure activity was seen. Brief History - From Admission hx from patient, ER communication and review of records poor historian stated he came because it was convenient place here and liked it when asked of dyspnea, stated yes coughing for 4 yrs off and on not sure of fever- think he had an accident denies other symptoms said he think he fell down did not pay attention to it - not horrendous he said, no bumps is not at bedside truly, pt is poor historian, cant obtain any meaningful history, stated he has alzeimers per ER report, patient was "seen here in the emergency department 3 days ago. He was having a COPD exacerbation at that time. He was discharged prescription for azithromycin and prednisone. However, he did not fill the azithromycin, but hasn't taken the prednisone. However, his symptoms have been worsening. Reports extreme shortness of breath with minimal walking. He has been using nebulizers at home with little improvement. He denies any fevers or chills. He denies chest pain. No abdominal pain. No nausea, vomiting, diarrhea. Severity is moderate. No alleviating symptoms. Activity exacerbates symptoms. No leg edema, no hemoptysis. No recent surgery or travel. No history DVT or PE. " was present in ER CBC/BMP: 04/15/17 0758 04/15/17 0758 Significant Findings Laboratory Tests Test 04/14/17 11:32 04/15/17 07:58 04/15/17 16:00 04/15/17 16:10 Vitamin B12 Level 1085 PG/ML (193-986) White Blood Count 11.7 TH/MM3 (4.0-11.0) Red Blood Count 4.08 MIL/MM3 (4.50-5.90) Hematocrit 38.7 % (39.0-51.0) Neutrophils (%) (Auto) 93.1 % (16.0-70.0) Lymphocytes (%) (Auto) 1.9 % (9.0-44.0) Neutrophils # (Auto) 10.9 TH/MM3 (1.8-7.7) Lymphocytes # (Auto) 0.2 TH/MM3 (1.0-4.8) Blood Urea Nitrogen 54 MG/DL (7-18) Random Glucose 238 MG/DL (74-106) Calcium Level 7.9 MG/DL (8.5-10.1) Estimat Glomerular Filtration Rate 59 ML/MIN (>89) PE at Discharge GENERAL: Alert, NAD. SKIN: Warm and dry. HEAD: Normocephalic. EYES: No scleral icterus. No injection or drainage. NECK: Supple, trachea midline. No JVD or lymphadenopathy. CARDIOVASCULAR: Regular rate and rhythm without murmurs, gallops, or rubs. RESPIRATORY: Breath sounds equal bilaterally. No accessory muscle use. GASTROINTESTINAL: Abdomen soft, non-tender, nondistended. MUSCULOSKELETAL: No cyanosis, or edema. Neurology: No focal deficits. CN II-XII appears to be grossly intact. Follows commands inconsistently. BACK: Nontender without obvious deformity. No CVA tenderness. Pt update on day of discharge Patient is doing well. No acute concerns. He remains confused. Discussed with . She believes he will improve in home environment. She was appreciative of the care Mr. Sanchez has received. She will follow up with his PCP and neurologist. Hospital Course Mr. Sanchez is a 71-year-old male with a history of hypertension, diabetes mellitus, CAD, atrial fibrillation who presented to the emergency department on 04/09/2017 due to shortness of breath. He developed acute delirium while in the hospital. - Acute delirium - Dementia - Unknown etiology of delirium. - We suspect being out of the home environment, baseline dementia and pneumonia with bacteremia are all contributing factors. - MRI brain shows no acute hemorrhage, mass or infarction. - Folate 12.2 , vitamin B12 1085. - Pneumococcal bacteremia - Patient was initiated on pneumococcal meningitis treatment. However, his symptoms were not very concerning for meningitis. - Per ID recommendations, we will continue Ceftriaxone. - Will continue Augmentin on discharge Per ID recommendations. - Community-acquired pneumonia - Acute COPD exacerbation - Continued ceftriaxone 2 g every 24 hours - Received dexamethasone 10 mg Q12hrs which was later discontinued. - Continued breathing treatments scheduled and when necessary. - Supplemental oxygen to keep O2 sat above 90%. Patient remained on room air. - Acute kidney injury - Creatinine 1.26 --> 1.46 --> 1.22. - Continued patient on IV NS @ 100cc/hour. - Hold Lasix - Coronary artery disease - Atrial fibrillation - Patient has had 6 stent placements including last one being within last 2- 3 weeks. - We continued apixaban 5 mg twice a day, aspirin, Plavix - Continued amiodarone 200 mg daily, atorvastatin 40 mg daily - Metoprolol 50 BID. - Resume lasix on discharge. - Continue Entresto 97-103mg. - Hypertension - Continue Amlodipine 5mg Qday. - Diabetes mellitus - Resume Glipizide upon discharge. - In the hospital, patient received Levemir 15 units daily at bedtime and continue sliding scale insulin. DNR. Apixaban. Discussed with ID and Neurology (Dr. Oliva) prior to discharge. I called neurology clinic to make an appointment. Neurology clinic informed me that they will get in touch with patient's regarding appointment with Dr. Calzada. Pt Condition on Discharge: Good Discharge Disposition: Discharge Home Discharge Time: > 30 minutes Discharge Instructions DIET: Follow Instructions for: As Tolerated, No Restrictions Activities you can perform: Regular-No Restrictions Pauline Salter DO Apr 16, 2017 20:14
[2017-04-17] MEDS ORDERED: POTASSIUM CHLORIDE 20 MEQ PWD PACKET PO SCH (09:00)
== END 2017-04-16 16:15 | disposition home or self-care (01) | DRG 871 ==
LOC: NEPC 13:11 → NEDA 15:48 → NEPFCDU 17:11 → OBSVTOIN 04-10 11:34 → N05B 04-11 18:20
PROVIDERS: ADMIT Hospitalist; ATTEND Hospitalist
DX: A40.3 Sepsis due to Streptococcus pneumoniae (principal); J13 Pneumonia due to Streptococcus pneumoniae; N17.9 Acute kidney failure, unspecified; R65.20 Severe sepsis without septic shock; I13.0 Hypertensive heart and chronic kidney disease with heart failure and stage 1 through stage 4 chronic kidney disease, or unspecified chronic kidney disease; E11.22 Type 2 diabetes mellitus with diabetic chronic kidney disease; Z79.84 Long term (current) use of oral hypoglycemic drugs; I50.9 Heart failure, unspecified; J44.0 Chronic obstructive pulmonary disease with (acute) lower respiratory infection; J44.1 Chronic obstructive pulmonary disease with (acute) exacerbation; N18.3 Chronic kidney disease, stage 3 (moderate); I48.91 Unspecified atrial fibrillation; G30.9 Alzheimer's disease, unspecified; I25.10 Atherosclerotic heart disease of native coronary artery without angina pectoris; Z95.5 Presence of coronary angioplasty implant and graft; I25.2 Old myocardial infarction; R41.0 Disorientation, unspecified; E78.5 Hyperlipidemia, unspecified; E03.9 Hypothyroidism, unspecified; Z79.02 Long term (current) use of antithrombotics/antiplatelets; Z79.82 Long term (current) use of aspirin; Z66 Do not resuscitate
CPT/HCPCS: 70551; 71020; 76937; 80048; 80053; 82140; 82550; 82552; 82607; 82746; 82948; 83605; 83735; 83880; 83921; 84425; 84484; 85025; 85610; 85652; 85730; 86038; 86403; 86592; 87040; 87184; 87186; 87205; 87449; 87804; 93005; 94640; 94664; 95819; 96365; 96375; G0378; G8987-GP; G8988-GP; J0456; J0696; J1100; J1630; J1815; J2060; J2920; J2930; J7030; J7050; J7512

== ENCOUNTER 2017-07-27 08:17 | Emergency (ER) | payer MEDICARE, BC ==
[~2017-07-27] VITALS: Ht 177.8 cm; Wt 90.5 kg
[2017-07-27] VITALS (7 sets, daily range): BP systolic 117–168; BP diastolic 56–73; PULSE 70–100; RESP 18–27; TEMP 97.8; O2SAT 96–99
[~2017-07-27 08:17] MED LIST changes: +AMLO5 PO; +AUGM875T3 PO; -AZIT250T3 PO; +IPRASOL INH; +METO-309 PO; -METO100T PO; +NAME5TAB2 PO; -PRED20 PO; +SERO25TA PO
[2017-07-27] MEDS ORDERED: ARIC5TAB6 (08:44)
--- NOTE | 2017-07-27 08:59 | PD ---
HPI Chief Complaint: Respiratory Symptoms Time Seen by Provider: 08:59 Travel History International Travel<30 days: No Contact w/Intl Traveler<30days: No Traveled to known affect area: No History of Present Illness HPI 71-year-old male came to the emergency room with history of cough, shortness of breath that's progressively worsening for past 1-2 weeks. He is here with his . He has history of COPD. Patient has been using his inhaler as per his prescription directions. However this has not been improving his symptoms. No history of fever or chills. Patient does have a sleeve baster Dr. Thomas but they have not contacted the sleeve baster and instead came to the emergency room. Vital signs are stable. Patient does not require oxygen at home. He is laying on the stretcher and appears to be breathing comfortably. No history of chest pain with all the symptoms. His says that occasionally he seems to get fluid overloaded and she has noticed that his weight goes up a few pounds and his legs swell up. On those occasions the decided to give him an extra dose of his furosemide 40 mg. Normally patient takes 40 mg a day. Last time she gave a next dose of furosemide was last Sunday. Patient is not a smoker. Patient says that at the end of a coughing spell he sometimes produces tannish colored thick sputum PFSH Past Medical History Narrative Medical List of his past medical, surgical, social and family history is reviewed from the nursing note. Hx Anticoagulant Therapy: Yes (ELIQUIS) Asthma: No Atrial Fibrillation: Yes Heart Rhythm Problems: Yes (AFIB) Cancer: No Cardiovascular Problems: Yes ([place] 2017) High Cholesterol: Yes Chest Pain: Yes Congestive Heart Failure: Yes COPD: Yes Cerebrovascular Accident: No Coronary Artery Disease: Yes Diabetes: Yes (type 2) Patient Takes Glucophage: No (GLIPIZIDE) Endocrine: No Genitourinary: No Heparin Induced Thrombocytopen: Yes Hypertension: Yes Immune Disorder: No Implanted Vascular Access Dvce: No Musculoskeletal: No Neurologic: Yes (Beginning stages of dementia) Psychiatric: Yes (this visit ( hallucination)) Reproductive: No Respiratory: Yes (CHF) Migraines: No Myocardial Infarction: Yes (x 4 (recent 10/01/10)) Seizures: No Sleep Apnea: Yes Thyroid Disease: No PNEUMOCCOCAL Vaccine (Year): 2 Past Surgical History Cardiac Surgery: Yes (MULTIPLE STENTS 10/01/10) Coronary Stent: Yes (5 STENTS) Other Surgery: Yes (INGUINAL HERNIA REPAIR ) Social History Alcohol Use: Yes (OCC) Tobacco Use: No Substance Use: No Allergies-Medications (Allergen,Severity, Reaction): Coded Allergies: enoxaparin (Verified Allergy, Severe, THROMBOCYTOPENIA, 07/27/17) heparin (porcine) (Verified Allergy, Severe, THROMBOCYTOPENIA, 07/27/17) hydrochlorothiazide (Verified Allergy, Mild, 07/27/17) RASH Comments List of his allergies reviewed from the nursing note. Reported Meds & Prescriptions Reported Meds & Active Scripts Active Zithromax Z-Byron (Azithromycin) 250 Mg Dspk 250 Mg PO DIRECTED 500 MG (2 tabs) day 1, then 1 tab days 2-5. Prednisone 20 Mg Tab 20 Mg PO BID Namenda (Memantine) 5 Mg Tab 5 Mg PO DAILY After one week, increase to 5mg twice a day. Then after another week, switch to 10mg Twice a day. Lopressor (Metoprolol Tartrate) 50 Mg Tab 50 Mg PO BID Reported Aricept (Donepezil HCl) 5 Mg Tablet Duoneb (Ipratropium-Albuterol Neb) 0.5-2.5 Mg/3 Ml Neb 1 Nebule INH DAILY Klor-Con M20 (Potassium Chloride Microencaps) 20 Meq Tab 20 Meq PO DAILY Rosuvastatin (Rosuvastatin Calcium) 20 Mg Tab 20 Mg PO DAILY Clopidogrel (Clopidogrel Bisulfate) 75 Mg Tab 75 Mg PO DAILY Eliquis (Apixaban) 5 Mg Tab 5 Mg PO BID Lasix (Furosemide) 40 Mg Tab 40 Mg PO DAILY Entresto (Sacubitril-Valsartan) 97-103 Mg Tab 1 Tab PO BID Proair Hfa 8.5 GM Inh (Albuterol Sulfate) 90 Mcg/Act Aer 2 Puff INH QID PRN 108 mcg/actuation Stiolto Respimat Inh (Tiotropium-Olodaterol Inh) 2.5-2.5 Mcg/Act Aero 2 Puff INH DAILY Glipizide 5 Mg Tab 5 Mg PO DAILY Take 30 minutes before a meal Narrative Medication List of his home medications reviewed from the nursing note. Review of Systems Except as stated in HPI: all other systems reviewed are Neg Respiratory: Positive: Cough, Shortness of Breath Physical Exam Narrative GENERAL: Awake, alert, looks older than his age, no obvious distress SKIN: Focused skin assessment warm/dry. Spider hemangioma on his cheeks HEAD: Atraumatic. Normocephalic. EYES: Pupils equal and round. No scleral icterus. No injection or drainage. ENT: No nasal bleeding or discharge. Mucous membranes pink and moist. NECK: Trachea midline. No JVD. CARDIOVASCULAR: Regular rate and rhythm. No murmur appreciated. RESPIRATORY: No accessory muscle use. Decreased air entry bilaterally with end expiratory wheeze GASTROINTESTINAL: Abdomen soft, non-tender, nondistended. Hepatic and splenic margins not palpable. MUSCULOSKELETAL: No obvious deformities. No clubbing. No cyanosis. No edema. NEUROLOGICAL: Awake and alert. No obvious cranial nerve deficits. Motor grossly within normal limits. Normal speech. PSYCHIATRIC: Appropriate mood and affect; insight and judgment normal. Data Data Last Documented VS Vital Signs Date Time Temp Pulse Resp B/P (MAP) Pulse Ox O2 Delivery O2 Flow Rate FiO2 07/27/17 11:42 76 21 127/69 (88) 98 07/27/17 10:13 Room Air 21 07/27/17 08:22 97.8 Orders Orders Complete Blood Count With Diff (07/27/17 09:10) Basic Metabolic Panel (Bmp) (07/27/17 09:10) B-Type Natriuretic Peptide (07/27/17 09:10) Prothrombin Time / Inr (Pt) (07/27/17 09:10) Magnesium (Mg) (07/27/17 09:10) Troponin I (07/27/17 09:10) Iv Access Insert/Monitor (07/27/17 09:10) Electrocardiogram (07/27/17 09:10) Ecg Monitoring (07/27/17 09:10) Oximetry (07/27/17 09:10) Oxygen Administration (07/27/17 09:10) Chest, Single Ap (07/27/17 09:10) Sodium Chloride 0.9% Flush (Ns Flush) (07/27/17 09:15) Methylprednisolone So Succ Inj (Solumedr (07/27/17 09:15) Albuterol-Ipratropium Neb (Duoneb Neb) (07/27/17 09:15) Albuterol-Ipratropium Neb (Duoneb Neb) (07/27/17 10:45) Ed Discharge Order (07/27/17 10:41) Labs Laboratory Tests Test 07/27/17 08:45 White Blood Count 5.7 TH/MM3 Red Blood Count 4.60 MIL/MM3 Hemoglobin 13.4 GM/DL Hematocrit 40.5 % Mean Corpuscular Volume 88.0 FL Mean Corpuscular Hemoglobin 29.2 PG Mean Corpuscular Hemoglobin Concent 33.2 % Red Cell Distribution Width 15.2 % Platelet Count 287 TH/MM3 Mean Platelet Volume 7.7 FL Neutrophils (%) (Auto) 57.1 % Lymphocytes (%) (Auto) 16.1 % Monocytes (%) (Auto) 10.5 % Eosinophils (%) (Auto) 14.6 % Basophils (%) (Auto) 1.7 % Neutrophils # (Auto) 3.3 TH/MM3 Lymphocytes # (Auto) 0.9 TH/MM3 Monocytes # (Auto) 0.6 TH/MM3 Eosinophils # (Auto) 0.8 TH/MM3 Basophils # (Auto) 0.1 TH/MM3 CBC Comment DIFF FINAL Differential Comment Prothrombin Time 11.5 SEC Prothromb Time International Ratio 1.1 RATIO Blood Urea Nitrogen 24 MG/DL Creatinine 1.25 MG/DL Random Glucose 146 MG/DL Calcium Level 8.9 MG/DL Magnesium Level 2.3 MG/DL Sodium Level 140 MEQ/L Potassium Level 4.1 MEQ/L Chloride Level 102 MEQ/L Carbon Dioxide Level 26.5 MEQ/L Anion Gap 12 MEQ/L Estimat Glomerular Filtration Rate 57 ML/MIN Troponin I 0.03 NG/ML B-Type Natriuretic Peptide 153 PG/ML MDM Medical Decision Making Medical Screen Exam Complete: Yes Emergency Medical Condition: Yes Medical Record Reviewed: Yes Interpretation(s) Twelve-lead EKG was reviewed by me. Normal sinus rhythm, normal axis, nonspecific ST-T wave changes, old anterior [place]. Heart rate of 73 bpm. Differential Diagnosis COPD exacerbation, CHF, pneumonia, bronchitis Narrative Course 10:48 AM blood test results of back and within acceptable limits. Patient was given 2 DuoNeb and IV Solu-Medrol initially. I just reassessed his lung sounds and air entry significantly improved. Patient still has some end expiratory wheeze and I'll give him another dose of DuoNeb but discharge him home after that. I discussed the test results and the plan with the patient and his . He will go home on a five-day course of steroid and Zithromax. They told me that he has albuterol inhaler at home which have encouraged to use 2 puffs every 4-6 hours. I've also encouraged him to follow-up with your sleeve baster Dr. Thomas. Procedures EKG Prior to Arrival: No Diagnosis Primary Impression: COPD with acute exacerbation Additional Impression: Bronchitis Referrals: Reece Thomas MD 2 days Primary Care Physician Additional Instructions: Please use your albuterol inhaler 2 puffs every 4-6 hours till the symptoms subside or UC or sleeve baster Dr. Thomas. Take the other medications as per the prescription direction. Return to the ER if condition worsens or any other new concerns. Med/Other Pt SpecificInfo: Prescription(s) given Scripts Azithromycin (Zithromax Z-Byron) 250 Mg Dspk 250 MG PO DIRECTED for Infection, #1 DSPK 0 Refills 500 MG (2 tabs) day 1, then 1 tab days 2-5. Prov: Kristin Escoto MD 07/27/17 Prednisone (Prednisone) 20 Mg Tab 20 MG PO BID, #5 TAB 0 Refills Prov: Kristin Escoto MD 07/27/17 Disposition: 01 DISCHARGE HOME Condition: Stable Kristin Escoto MD Jul 27, 2017 08:59
[2017-07-27] MEDS ORDERED: SODIUM CHLORIDE 0.9% FLUSH 10 ML FLUSH IVF PRN (09:15)
[2017-07-27] MEDS ORDERED: methylPREDNISolone SOD SUCC 125 MG/2 ML VIAL IV PUSH ONE (09:15)
[2017-07-27] MEDS: RESP: ALBUTEROL 2.5 MG/IPRATROPIUM 0.5 MG NEB (SCH) INH (09:17)
--- NOTE | 2017-07-27 09:36 | RADRPT ---
EXAM DATE/TIME: 07/27/2017 09:32 [facility] COMPARISON: CHEST SINGLE AP, April 06, 2017, 19:18. INDICATIONS : Shortness of breath. MEDICAL HISTORY : Chronic obstructive pulmonary disease. Myocardial infarction. Atrial fibrillation. SURGICAL HISTORY : Cardiac stent. ENCOUNTER: Initial ACUITY: 2 weeks PAIN SCORE: 0/10 LOCATION: Bilateral chest FINDINGS: The lungs are clear. The heart is minimally enlarged. The pulmonary vascularity is normal. There is n o evidence for infiltrate or failure. The portion of the bony skeleton visualized is unremarkable. CONCLUSION: Compensated cardiomegaly otherwise negative Irvin Petty MD FACR on July 27, 2017 at 9:35 Board Certified Radiologist. This report was verified electronically.
[2017-07-27 09:37] LABS: INTERNATIONAL NORMALIZED RATIO 1.1 RATIO; PROTHROMBIN TIME - PATIENT 11.5 SEC (9.8-11.6)
[2017-07-27 09:39] LABS: AUTOMATED NEUTROPHIL # 3.3 TH/MM3 (1.8-7.7); BASOPHIL # 0.1 TH/MM3 (0-0.2); BASOPHIL % 1.7 % (0.0-2.0); EOSINOPHIL # 0.8 TH/MM3 (0-0.4); EOSINOPHIL % 14.6 % (0.0-4.0); HEMATOCRIT 40.5 % (39.0-51.0); HEMOGLOBIN 13.4 GM/DL (13.0-17.0); LYMPH % 16.1 % (9.0-44.0); LYMPHOCYTE # 0.9 TH/MM3 (1.0-4.8); MEAN CORPUSCULAR HEMOGLOBIN 29.2 PG (27.0-34.0); MEAN CORPUSCULAR HGB CONC 33.2 % (32.0-36.0); MEAN PLATELET VOLUME 7.7 FL (7.0-11.0); MONO % 10.5 % (0.0-8.0); MONOCYTE # 0.6 TH/MM3 (0-0.9); NEUT % 57.1 % (16.0-70.0); PLATELET COUNT 287 TH/MM3 (150-450); RED CELL DISTRIBUTION WIDTH 15.2 % (11.6-17.2); WHITE BLOOD COUNT 5.7 TH/MM3 (4.0-11.0)
[2017-07-27 09:52] LABS: BICARBONATE 26.5 MEQ/L (21.0-32.0); CALCIUM 8.9 MG/DL (8.5-10.1); CREATININE 1.25 MG/DL (0.60-1.30); MAGNESIUM 2.3 MG/DL (1.5-2.5)
[2017-07-27 09:56] LABS: TROPONIN I 0.03 NG/ML (0.02-0.05)
[2017-07-27] MEDS ORDERED: ZITHTAB PO (10:44)
[2017-07-27] MEDS ORDERED: PRED20 PO (10:44)
[2017-07-27] MEDS ORDERED: RESP: ALBUTEROL 2.5 MG/IPRATROPIUM 0.5 MG NEB (SCH) INH ONE (10:45)
--- NOTE | 2017-07-27 17:59 | EKG ---
Date Performed: 07/27/2017 Time Performed: 09:20:39 PTAGE: 71 years EKG: Sinus rhythm WITH MARKED SINUS ARRHYTHMIA LOW QRS VOLTAGE IN PRECORDIAL LEADS NONSPECIFIC T-WAVE ABNORMALITY ABNO RMAL ECG PREVIOUS TRACING : 04/10/2017 02.53 Since the prior tracing, there has been no significant yu DOCTOR: Maria Del Carmen Richardson Interpretating Date/Time 07/27/2017 18:03:23
== END 2017-07-27 11:48 | disposition home or self-care (01) ==
LOC: NEPC 08:17
DX: J44.1 Chronic obstructive pulmonary disease with (acute) exacerbation (principal); J40 Bronchitis, not specified as acute or chronic; I48.91 Unspecified atrial fibrillation; E78.00 Pure hypercholesterolemia, unspecified; I25.10 Atherosclerotic heart disease of native coronary artery without angina pectoris; E11.9 Type 2 diabetes mellitus without complications; I10 Essential (primary) hypertension; I50.9 Heart failure, unspecified; I25.2 Old myocardial infarction; Z79.01 Long term (current) use of anticoagulants; Z95.5 Presence of coronary angioplasty implant and graft; Z88.8 Allergy status to other drugs, medicaments and biological substances
CPT/HCPCS: 71045; 80048; 83735; 83880; 84484; 85025; 85610; 93005; 94640; 94664; 96374; 99285; J2930